=== PATIENT | female | born 1935 | race Caucasian/White ===

== ENCOUNTER 2019-11-29 14:34 | Inpatient (IN) | payer MEDICARE, SELFPAY ==
[2019-11-29] VITALS (14 sets, daily range): BP systolic 93–130; BP diastolic 58–89; PULSE 87–152; RESP 22–28; TEMP 37.3–37.8; O2SAT 90–99; BMI 21.3
--- NOTE | ~2019-11-29 | XR_ITS ---
XR chest 1V portable DATE: 12/02/2019 06:30 INDICATION: Pneumonia. Shortness of breath, fever TECHNIQUE: Portable upright AP chest on 12/02/2019 at 0612 hours COMPARISON: 11/29/2019 portable AP chest FINDINGS: There is a prominently enlarged globular appearing cardiac silhouette consistent with cardi omegaly/cardiomyopathy or less likely pericardial effusion. There are extensive left upper and particularly lower lung infiltrates and right lower lung infiltrat e, increased since 11/29/2019. There is prominence of the minor fissure suggesting subpleural edema. Bi lateral pleural effusions. Aortic calcification. Diffuse osteopenia. Osteoarthritic change at the glenohumeral joints, especially on the left. Bilater al chronic rotator cuff atrophy. Prominent dextroscoliosis of the thoracic spine. IMPRESSION: Globular prominent enlarged cardiac silhouette suggesting cardiomegaly/myopathy; pericard ial effusion is not excluded Congestive changes, bilateral infiltrates, left greater than right; diffusion diagnosis includes pulm onary edema, pneumonia, aspiration Reviewed, dictated and finalized at location A. IMPRESSION: Globular prominent enlarged cardiac silhouette suggesting cardiomeg татьяна/myopathy; pericardial effusion is not excluded Congestive changes, bilateral infiltrates, left greater than right; diffusion d iagnosis includes pulmonary edema, pneumonia, aspiration
--- NOTE | ~2019-11-29 | XR_ITS ---
EXAMINATION: XR chest 2V DATE: 12/05/2019 14:08 INDICATION: Congestive heart failure. Pneumonia. Neurologic atrial fibrillation. TECHNIQUE: frontal and lateral views of the chest were obtained. COMPARISON: Chest radiograph dated 12/02/2019 and 07/13/2017 FINDINGS: Patient is rotated towards the left. Opacities in the bilateral mid to lower lung zones, left greater than right with blunting at the costophrenic angles. No pneumothorax. Cardiomegaly. Thoracic kyphos is with multiple compression fractures couple of which in the lower thoracic spine are new since [facility] e 07/13/2017. IMPRESSION: 1. Moderate left and small right pleural effusions with associated atelectasis and/or pneumonia in th e bilateral mid to lower lung zones. 2. Cardiomegaly. Reviewed, dictated and finalized at location A. IMPRESSION: 1. Moderate left and small right pleural effusions with associated atelectasis and/or pneumonia in the bilateral mid to lower lung zones. 2. Cardiomegaly.
--- NOTE | ~2019-11-29 | US_ITS ---
EXAMINATION: US renal BI DATE: 12/05/2019 16:44 INDICATION: Acute kidney injury. TECHNIQUE: Multiple ultrasound grayscale images of the kidneys were obtained. COMPARISON: Ultrasound 02/07/2014 FINDINGS: The right kidney measures 9.4 x 3.9 x 4.2 cm. The left kidney measures 9.6 x 5.0 x 5.0 cm. The kidney s demonstrate normal parenchymal echogenicity. There is mild right hydronephrosis. The bladder is nor mal. There are bilateral pleural effusions. IMPRESSION: 1. Mild right hydronephrosis. 2. Bilateral pleural effusions. Reviewed, dictated and finalized at location B.
--- NOTE | ~2019-11-29 | XR_ITS ---
EXAMINATION: XR chest 1V portable DATE: 11/29/2019 15:18 INDICATION: Tachycardia, shortness of breath and fever TECHNIQUE: frontal view of the chest was obtained. COMPARISON: Chest radiograph dated 07/13/2017 FINDINGS: Patient is rotated towards the left. Hyperexpansion of lungs. Chronic pleural parenchymal scarring at the right apex. Mild reticular atelectasis/scarring at the right costophrenic angle. Airspace opacit y in the left lower lung zone with blunting of the costophrenic angle consistent with small left pleu ral effusion and associated basilar atelectasis and/or pneumonia. No pneumothorax. Prominent cardiome aníbal which is new since the prior study. Likely coronary artery stenting. Atherosclerotic aorta. Uppe r thoracic kyphosis and spondylosis. Moderate left glenohumeral osteoarthritis. IMPRESSION: 1. Atelectasis and/or pneumonia at the left lower lung zone with small left pleural effusion. 2. Cardiomegaly. Reviewed, dictated and finalized at location A. IMPRESSION: 1. Atelectasis and/or pneumonia at the left lower lung zone with small left ple ural effusion. 2. Cardiomegaly.
--- NOTE | 2019-11-29 14:45 | ECG_ITS ---
Measurements Intervals [place] Rate: 161 P: [place]: 0 QRS: -47 QRSD: 117 T: -58 QT: 255 QTc: 418 Interpretive Statements ATRIAL FIBRILLATION WITH RAPID VENTRICULAR RESPONSE VENTRICULAR PREMATURE COMPLEX LOW QRS VOLTAGE IN PRECORDIAL LEADS INCOMPLETE RIGHT BUNDLE BRANCH BLOCK LEFT ANTERIOR FASCICULAR BLOCK BORDERLINE ST-T WAVE ABNORMALITY- ANTEROLAT/INF LEADS BASELINE ARTIFACT- I, II, III, AVR, AVL, AVF ABNORMAL ECG Electronically Signed On 11-29-2019 15:06:41 CDT by Itz English D.O.
[2019-11-29 14:58] LABS: Basophils Percent Auto 0.3 % (0.2-1.2); Eosinophils Percent Auto 0.4 % (0-4.4); Hematocrit 39.4 % (37.0-47.0); Immature Granulocyte Absolute 0.05 K/mm3 (0.00-0.031); Immature Granulocyte Percent A 0.5 % (0-0.5); Lymphocytes Absolute Auto 0.76 K/mm3 (0.9-3.2); Lymphocytes Percent Auto 8.3 % (18.3-44.2); Mean Corpuscular Hemoglobin 31.6 pg (26-34); Mean Corpuscular Volume 95.9 fl (80-100); Mean Platelet Volume 8.9 fl (7.4-10.4); Monocytes Percent Auto 11.1 % (2.6-8.5); Neutrophils Absolute Auto 7.3 K/mm3 (1.3-6.7); Neutrophils Percent Auto 79.4 % (45.5-73.1); Platelet Count Result 405 k/mm3 (150-375); Red Blood Count 4.11 M/mm3 (4.2-5.4); Red Cell Distribution Width 13.2 % (11.5-14.5); White Blood Count 9.2 K/mm3 (4.5-10.0)
[2019-11-29 15:07] LABS: Anion Gap 12.1 mmol/L (7-16); Blood Urea Nitrogen 24 mg/dL (7-17); Calcium 9.6 mg/dL (8.4-10.2); Carbon Dioxide 31 mmol/L (22-30); Chloride 93 mmol/L (98-107); Estimated CRCL calculation 29 ml/min; Estimated Glomerular Filt Rate 53; Glucose 121 mg/dL (65-105); Potassium 4.1 mmol/L (3.4-5.0); Sodium 132 mmol/L (137-145)
[2019-11-29 15:19] LABS: Troponin I < 0.012 ng/mL (0.000-0.034)
--- NOTE | 2019-11-29 15:26 | ED.GENADULT ---
HPI - General Adult General Chief complaint: Shortness of Breath/Dyspnea Stated complaint: PROBLEMS BREATHING Time Seen by Provider: 11/29/19 14:53 Source: family History of Present Illness HPI narrative: Patient is 84 years old white female, lives alone, have frequent visits by her son and her neighbors. Been coughing and shortness of breath for the last few days. The son denies any exposure to anybody was COVID-19. The neighbors are okay and the son is okay. Patient is full code. Related Data Home Medications Medication Instructions Recorded Confirmed gabapentin 11/29/19 lisinopril 11/29/19 Allergies Allergy/AdvReac Type Severity Reaction Status Date / Time diclofenac Allergy Mild EYE Verified 06/30/19 09:41 DIFFICULT diflunisal Allergy Unknown unknown Verified 06/30/19 09:41 hydromorphone Allergy Unknown unknown Verified 06/30/19 09:41 TAPE Allergy Mild BLISTERS Uncoded 04/22/19 10:12 Review of Systems Review of Systems: Narrative: CONSTITUTIONAL: Denies fever, chills, or sweats. EYES: Denies visual changes, redness, or discharge. ENT: Denies rhinorrhea, congestion, sore throat, or otalgia. CARDIOVASCULAR: Denies chest pain, palpitations, or edema. RESPIRATORY: Denies cough or dyspnea. GASTROINTESTINAL: Denies abdominal pain, nausea, vomiting, or diarrhea. GENITOURINARY: Denies dysuria or hematuria. SKIN: Denies rash or itching. MUSCULOSKELETAL: Denies back pain, joint pain, or myalgia. NEUROLOGIC: Denies headache, numbness, or weakness. PSYCHIATRIC: Denies anxiety or depression.. [facility] Past Medical History Medical History Chronic back pain Dementia Hypertension Osteoporosis Surgical History Surgical History History of knee replacement (~2005) Family History Family History Grandparent Carcinoma of colon Family history of heart disease in male family member before age 55 Father Family history of emphysema Family history of lung disease Patient's father is Family history of chronic obstructive pulmonary disease Mother Family history of emphysema Family history of hypercholesterolemia Hypertension Patient's mother is Cerebrovascular accident Sibling Family history of lung cancer Family history of malignant neoplasm of breast in first degree relative Family history of heart disease in male family member before age 55 Patient's sister is Patient's brother is Cerebrovascular accident Family history of chronic obstructive pulmonary disease Other Family history of malignant neoplasm of male breast Social History Social History Smoking status: Never smoker Second hand tobacco smoke exposure: No Alcohol intake: never Exam Narrative: Exam Narrative: General appearance: Well-developed, well-nourished Skin: Normal color Head: Normocephalic, nontraumatic Eyes: Clear conjunctiva ENT: Oropharynx normal, ears normal, nose normal Neck: Supple, nontender Chest and respiratory: Airway patent, no respiratory distress, no accessory muscle use Heart: Tachycardia, irregular irregularity Abdomen: Soft, nontender, no organomegaly, quiet bowel sounds Vascular: Normal peripheral pulses, normal capillary refill. Musculoskeletal: Normal range of motion, nontender back Neurologic: Alert and oriented ?3, HAND II TUBE BENDER is normal as tested, no gross motor deficit Course Course Emergency Course: Stable Consultations Consultation #1: Dr. Nur Date: 11/29/19 Time: 16:06
[2019-11-29] MEDS: dilTIAZem HCl INJ 25 MG/5 ML VIAL 10 MG IV PUSH (15:27)
[2019-11-29 16:13] LABS: Base Excess ABG 5.1 mEq/l (+/-2.0); Fractional Inspired Oxygen 21 %; HCO3 ABG 29.8 mEq/l (22.0-26.0); Oxygen Content ABG 16.3 %vol (16.0-22.0); Oxygen Saturation ABG 90.2 % (95.0-100.0); Oxyhemoglobin 89.2 % THb (90.0-100.0); PCO2 ABG 44.1 mmHg (35.0-45.0); PO2 ABG 55.9 mmHg (80.0-100.0); PO2 FiO2 Ratio Arterial Blood 2.66 %; pH ABG 7.447 (7.350-7.450)
[2019-11-29 16:14] LABS: Device ROOM AIR; Modified Allen's Test Pass; Site Drawn RIGHT RADIAL
[2019-11-29 16:16] LABS: Lactic Acid Reflex 1.1 mmol/L (0.7-2.1)
[2019-11-29 16:27] LABS: Alanine Aminotransferase 26 U/L (4-35); Albumin Level 3.7 g/dL (3.5-5.1); Alkaline Phosphatase 88 U/L (38-126); Anion Gap 12.2 mmol/L (7-16); Aspartate Amino Transferase 34 U/L (14-36); Bilirubin,Total 0.9 mg/dL (0.2-1.3); Blood Urea Nitrogen 23 mg/dL (7-17); CRP 7.3 mg/dL (<1.0); Calcium 9.5 mg/dL (8.4-10.2); Carbon Dioxide 30 mmol/L (22-30); Chloride 94 mmol/L (98-107); Estimated CRCL calculation 29 ml/min; Estimated Glomerular Filt Rate 53; Glucose 115 mg/dL (65-105); Potassium 4.2 mmol/L (3.4-5.0); Sodium 132 mmol/L (137-145)
[2019-11-29 17:30] LABS: Add Urine Microscopic? YES; Appearance Urine Clear (Clear); Bilirubin Urine Negative (Negative); Blood Urine Negative (Negative); Color Urine Yellow (Yellow); Glucose Urine UA Negative (Negative); Ketones Urine Negative (Negative); Leukocyte Esterase Ur Negative LEU/UL (Negative); Mucus Urine Rare /lpf; Nitrate Urine Negative (Negative); Protein Urine 1+ mg/dL (Negative); Specific Grav Ur 1.023 (1.001-1.035); Squamous Epithelial Cell Urine Rare /hpf (Few); WBC Urine 0-3 /hpf
[2019-11-29 17:52] LABS: INR 1.2; Prothrombin Time 14.5 Seconds (11.1-14.7)
[2019-11-29 17:53] LABS: Partial Thromboplastin Time 32.1 SECONDS (22.3-36.8)
[2019-11-29 18:34] LABS: NT Pro B Type Natriuretic Pept 5610 PG/ML (5-100)
[2019-11-29 19:06] LABS: Troponin I 0.013 ng/mL (0.000-0.034)
--- NOTE | 2019-11-29 19:36 | PC.NURSE ---
This patient, Brandan Hoffman, was admitted to Intensive Care Unit-1. Patient/family oriented to hospital policies and general routines including ID bracelet, bed and alarms, visiting hours, pain management, procedures, bathroom and other care routines, personal items, smoking policy, room service/diet, and visiting hours. Valuables list has been completed. Information on how to activate the Rapid Response Team has been discussed. Patient/Family are encouraged to report perceived risks to care and to ask questions if they do not understand what they are told or what they should do.
--- NOTE | 2019-11-29 20:27 | PM.IMHP ---
H&P: HPI History of Present Illness Date/Time: 11/29/19 20:27 Chief complaint: New onset A.fib, pneumonia Narrative: Brandan Hoffman is a 84 year old female who lives home alone. the patient has been staying at home most the time. She said during this COVID outbreak she has only been out twice since the COVID outbreak. That was to go to the grocery store and [employer]. The patient stated that her son usually brings her her the grocery and he works in a restaurant. The son has been feeling well without any illness. The patient visits with her neighbors and stated that they are all healthy. The patient has been coughing and short of breath for the last 2 days. The patient states that she is a full code. She tells me that she has had an irregular heart rate in the past and that she has high blood pressure. Chest x-ray was read as atelectasis and/or pneumonia at the left lower lung zones with small pleural effusion. Cardiomegaly. Patient was found to be AFib with RVR. She started on a Cardizem drip. She is started on azithromycin and Rocephin. She was also given IV Tylenol. She is slightly hard of hearing. She is admitted to ICU is IMU overflow. COVID testing is pending and she is on isolation. no fever chills. I spent approximately 40 minutes of critical care time with the patient date of service 11/29/2019 Review of Systems Review of Systems: All systems reviewed & are unremarkable except as noted in HPI and below Constitutional: Constitutional: Reports as per HPI and Reports no additional constitutional complaints Eyes: Eyes: Reports as per HPI and Reports no additional eye complaints ENT: Reports system reviewed and no additional complaints, except as documented and Reports Normal hearing present Cardiovascular: Cardiovascular: Reports no additional cardiovascular complaints Respiratory: Respiratory: Reports no additional respiratory complaints and Reports no additional respiratory complaints Gastrointestinal: Gastrointestinal: Reports as per HPI and Reports no additional gastrointestinal complaints Musculoskeletal: Musculoskeletal: Reports no additional musculoskeletal complaints Integumentary/Breasts: Skin/Breast: Reports system reviewed and no additional complaints, except as docu and Reports as per HPI Neurologic: Reports system reviewed and no additional complaints, except as documented, Reports as per HPI and Reports Normal hearing present Psychiatric: Psychiatric: Reports no additional psychiatric complaints and Reports as per HPI Endocrine: Endocrine: Reports no additional endocrine complaints Hematologic/Lymphatic: Hematologic/Lymphatic: Reports no additional hematologic/lymphatic complaints Allergic/Immunologic: Allergic/Immunologic: Reports no additional allergic/immunologic complaints [facility] Past Medical History Medical History (Updated 11/29/19 @ 20:48 by Cathy Smith NP) Chronic back pain Dementia Hypertension Osteoporosis Surgical History Surgical History History of knee replacement (~2005) Family History Family History Grandparent Carcinoma of colon Family history of heart disease in male family member before age 55 Father Family history of emphysema Family history of lung disease Patient's father is Family history of chronic obstructive pulmonary disease Mother Family history of emphysema Family history of hypercholesterolemia Hypertension Patient's mother is Cerebrovascular accident Sibling Family history of lung cancer Family history of malignant neoplasm of breast in first degree relative Family history of heart disease in male family member before age 55 Patient's sister is Patient's brother is Cerebrovascular accident Family history of chronic obstructive pulmonary disease Other Family history of malignan
[2019-11-29 21:16] LABS: Troponin I 0.012 ng/mL (0.000-0.034)
[2019-11-30] VITALS (15 sets, daily range): BP systolic 93–113; BP diastolic 60–70; PULSE 12–107; RESP 18–32; TEMP 36.4–37.2; O2SAT 92–99
--- NOTE | 2019-11-30 | ECHO_ITS ---
Patient Info Name: Brandan Hoffman Age: 84 years : 1935 Gender: Female Ht: 62 in Wt: 116 lbs BSA: 1.52 m2 HR: 85 bpm BP: 95 / 67 mmHg Heart Rhythm: Atrial Fibrillation Technical Quality: Good Exam Date: 11/30/2019 2:44 PM Exam Location: [facility] Pul[facility] Patient Status: Inpatient Admit Date: 11/29/2019 Staff Ordering Physician: Cathy Smith NP Obstetrics Technician: Rikki Pryor RDCS, RT Attending Provider: Rajan Martinez MD Referring Physician: Sarah RAMOS; Exam Type: CA echo doppler color flow Study Info Indications I50.9 - Heart failure, unspecified Complete two-dimensional, color flow and Doppler transthoracic echocardiogram is performed. Summary 1. Left ventricular chamber size and systolic function are normal with no regional wall motion abnormalities with an estimated ejection fraction of 55-60%. There is mild left ventricular hypertrophy present as well as grade 2 diastolic dysfunction. 2. Right ventricular chamber dimension is mildly enlarged, with mild hypokinesis present. 3. Left atrial chamber dimension is severely enlarged. 4. Right atrial chamber dimension is severely enlarged. 5. There is moderately severe mitral valve regurgitation. PISA was 0.6 cm. There is severe annular calcification with trivial mitral stenosis with a mean gradient of 3 mmHg. 6. There is moderate tricuspid valve regurgitation. 7. Moderate pulmonary hypertension, estimated pulmonary arterial systolic pressure is 49 mmHg. 8. There is mild aortic atherosclerosis. 9. Dilated inferior vena cava with no collapse upon inspiration consistent with significantly elevated right atrial pressure, 20 mmHg. 10. There is trivial pericardial effusion. 11. The rhythm appears to be atrial fibrillation. Left Ventricle Left ventricular chamber dimension is normal. Left ventricular systolic function is normal, estimated at 55-60%. There is mildly increased left ventricular wall thickness. Left ventricular septal wall motion is normal. The left ventricular diastolic function is grade II diastolic dysfunction. Left ventricular chamber size and systolic function are normal with no regional wall motion abnormalities with an estimated ejection fraction of 55-60%. There is mild left ventricular hypertrophy present as well as grade 2 diastolic dysfunction. Right Ventricle Right ventricular chamber dimension is mildly enlarged, with mild hypokinesis present. Right ventricular systolic function is reduced. Left Atria Left atrial chamber dimension is severely enlarged. Right Atria Right atrial chamber dimension is severely enlarged. Aortic Valve The aortic valve is trileaflet. There is mild aortic valve sclerosis. There is no aortic valve stenosis. There is no aortic valve regurgitation. Pulmonic Valve The pulmonic valve is normal. There is no pulmonic valve stenosis. There is trace pulmonic regurgitation. Mitral Valve The mitral valve has thickened leaflets. There is mild mitral valve stenosis. There is moderately severe mitral valve regurgitation. PISA was 0.6 cm. There is severe annular calcification with trivial mitral stenosis with a mean gradient of 3 mmHg. The mitral valve annulus is severely calcified. Tricuspid Valve The tricuspid valve leaflets are normal. There is no significant tricuspid valve stenosis. There is moderate tricuspid valve regurgitation. Moderate pulmonary hypertension, estimated pulmonary arterial systolic pressure is 49 mmHg. Pericardium/Pleur
[2019-11-30 00:25] LABS: SARS-CoV-2 RNA PCR Negative
[2019-11-30 04:52] LABS: Basophils Percent Auto 0.4 % (0.2-1.2); Eosinophils Absolute Auto 0.1 K/mm3 (0-0.3); Eosinophils Percent Auto 0.7 % (0-4.4); Hemoglobin 10.9 g/dL (12.0-15.0); Immature Granulocyte Absolute 0.04 K/mm3 (0.00-0.031); Immature Granulocyte Percent A 0.4 % (0-0.5); Lymphocytes Absolute Auto 0.97 K/mm3 (0.9-3.2); Lymphocytes Percent Auto 10.7 % (18.3-44.2); Mean Corpuscular Hemoglobin 32.1 pg (26-34); Mean Corpuscular Volume 97.1 fl (80-100); Mean Platelet Volume 9.5 fl (7.4-10.4); Monocytes Absolute Auto 1.1 K/mm3 (0.1-0.6); Monocytes Percent Auto 11.9 % (2.6-8.5); Neutrophils Absolute Auto 6.9 K/mm3 (1.3-6.7); Neutrophils Percent Auto 75.9 % (45.5-73.1); Platelet Count Result 319 k/mm3 (150-375); Red Cell Distribution Width 13.2 % (11.5-14.5); White Blood Count 9.1 K/mm3 (4.5-10.0)
[2019-11-30 05:09] LABS: Lactic Acid 1.2 mmol/L (0.7-2.1)
[2019-11-30 05:13] LABS: Magnesium 1.7 mg/dL (1.6-2.3)
[2019-11-30] MEDS: LEVALBUTEROL HFA (*SP) 15 GM INHALER 2 PUFF INHALATION ×3 (05:15→18:39)
[2019-11-30 05:20] LABS: CRP 7.2 mg/dL (<1.0)
[2019-11-30] MEDS: ENOXAPARIN 60 MG/0.6 ML SYRINGE 50 MG SUB-Q (09:23)
[2019-11-30] MEDS: SODIUM CHLORIDE 0.9% IV 500 ML IV CONT (09:23)
--- NOTE | 2019-11-30 10:55 | PM.CNCAR ---
Assessment and Plan Additional Plan 84-year-old white female with atrial fibrillation with rapid ventricular response. Patient is sure that she has a history of atrial fibrillation so this is not an entirely new diagnosis. It is unclear to us at [place] whether she has persistent, permanent atrial fib or paroxysmal atrial fib. She is rate controlled with diltiazem she normally takes oral diltiazem as an outpatient. She does not report any hemorrhagic problems or any obvious strong contraindications to being anticoagulated. I would therefore recommend: Transition back to oral diltiazem systemically anticoagulate with Xarelto await echocardiographic finding Pravin Nur MD [facility] History of Present Illness History of Present Illness Consult date/time: Date of service:11/30/19 10:55 Consult reason: atrial fibrillation Reason For Visit: New onset A.fib, pneumonia Narrative: This is an 84-year-old lady Who is being seen at the request of the hospitalist this morning to assist with the management of atrial fibrillation. the patient was in her home and brought to the hospital she says by her son was concerned that she was feeling ill for several days with a cough that she says was nonproductive and not associated with fever. When she was seen in the emergency room it was determined that she should be ruled out for nj virus. It was also noticed that she was in atrial fibrillation with rapid ventricular response. She was placed on IV diltiazem which has provided fairly good heart rate control. She normally takes oral diltiazem at home. She does not take an anticoagulant at home. The patient is fairly comfortable now is in the ICU room 1. And is comfortable and otherwise cooperative. She indicates that she has a history of atrial fibrillation for a number of years but can't really provide much details in terms of the history of this and management of it. There are some notes on the chart from an mortgage loan reviewer, Dr. Tiwari in [place] which speak to a history of idiopathic ventricular tachycardia which was partially ablated in the past but atrial fib is interestingly not mentioned in those notes. She nonetheless indicates that she has a history of this and is not aware of any sense of palpitations /tachycardia upon coming to the hospital last evening. Her nj virus test/ swab has come back negative. An echocardiogram I believe has been ordered but has yet to be done this morning. She states that she lives alone in her own home with family nearby she also has hypertension. Review of Systems Constitutional: Constitutional: Reports fatigue Eyes: Eyes: Reports no additional eye complaints ENT: Reports system reviewed and no additional complaints, except as documented Cardiovascular: Cardiovascular: Reports as per HPI and Reports no additional cardiovascular complaints Respiratory: Respiratory: Reports as per HPI and Reports cough Gastrointestinal: Gastrointestinal: Reports no additional gastrointestinal complaints Musculoskeletal: Musculoskeletal: Reports no additional musculoskeletal complaints Integumentary/Breasts: Skin/Breast: Reports system reviewed and no additional complaints, except as docu Neurologic: Reports system reviewed and no additional complaints, except as documented Psychiatric: Psychiatric: Reports no additional psychiatric complaints Endocrine: Endocrine: Reports no additional endocrine complaints Hematologic/Lymphatic: Hematologic/Lymphatic: Reports no additional hematologic/lymphatic complaints Allergic/Immunologic: Allergic/Immunologic: Reports no additional allergic/immunologic complaints [facility] Past Medical History Medical History (Updated 11/29/19 @ 20:48 by Cathy Smith NP) Chronic back pain Dementia Hypertension Osteoporosis Surgical History Surgical History History of knee replacement (~2005) Family Hi
[2019-11-30] MEDS: APIXABAN 5 MG TABLET PO (20:06)
--- NOTE | 2019-11-30 22:01 | PC.NURSE ---
This patient, Brandan Hoffman, was transferred to [[id number] ] on 11/30/19 at 2201. Personal belongings sent with patient. Belongings list checked and signed with receiving [ RN]. Report given to [ Jessica Reyes ]. Appropriate documentation sent with patient.
[2019-12-01] VITALS (20 sets, daily range): BP systolic 92–121; BP diastolic 62–73; PULSE 86–125; RESP 18–24; TEMP 36.2–37; O2SAT 93–97
[2019-12-01] MEDS: APIXABAN 5 MG TABLET PO (07:57)
[2019-12-01 09:42] LABS: Basophils Percent Auto 0.2 % (0.2-1.2); Eosinophils Percent Auto 0.1 % (0-4.4); Hemoglobin 11.8 g/dL (12.0-15.0); Immature Granulocyte Absolute 0.04 K/mm3 (0.00-0.031); Immature Granulocyte Percent A 0.5 % (0-0.5); Lymphocytes Absolute Auto 0.67 K/mm3 (0.9-3.2); Lymphocytes Percent Auto 7.8 % (18.3-44.2); Mean Corpuscular HGB Conc 32.8 g/dl (32-36); Mean Corpuscular Hemoglobin 31.6 pg (26-34); Mean Corpuscular Volume 96.5 fl (80-100); Mean Platelet Volume 9.2 fl (7.4-10.4); Monocytes Percent Auto 11.1 % (2.6-8.5); Neutrophils Absolute Auto 6.9 K/mm3 (1.3-6.7); Neutrophils Percent Auto 80.3 % (45.5-73.1); Platelet Count Result 362 k/mm3 (150-375); Red Blood Count 3.73 M/mm3 (4.2-5.4); Red Cell Distribution Width 13.2 % (11.5-14.5); White Blood Count 8.6 K/mm3 (4.5-10.0)
[2019-12-01 10:02] LABS: Albumin Level 3.2 g/dL (3.5-5.1); Anion Gap 10.3 mmol/L (7-16); Blood Urea Nitrogen 21 mg/dL (7-17); Calcium 9.1 mg/dL (8.4-10.2); Carbon Dioxide 31 mmol/L (22-30); Chloride 93 mmol/L (98-107); Estimated CRCL calculation 36 ml/min; Estimated Glomerular Filt Rate > 60; Glucose 144 mg/dL (65-105); Magnesium 1.7 mg/dL (1.6-2.3); Phosphorus 3.4 mg/dL (2.5-4.5); Potassium 4.3 mmol/L (3.4-5.0); Sodium 130 mmol/L (137-145)
[2019-12-01] MEDS: LEVALBUTEROL HFA (*SP) 15 GM INHALER 2 PUFF INHALATION ×2 (11:05→19:46)
--- NOTE | 2019-12-01 16:28 | PM.PNCARD ---
Progress Note: A&P Assessment and Plan (1) Atrial fibrillation: Code(s): I48.91 - Unspecified atrial fibrillation Status: Acute Assessment and Plan: Possibly new onset, though the patient thinks that she has had AFib in the past. Heart rate not well-controlled. Aiming for rate control and anticoagulation strategy; huge left atrium and significant MR so cardioversion not likely to provide long-lasting benefit. Xarelto/Eliquis too costly. Discussed use of warfarin. Despite the HAS-Bled score and increased risk of bleeding, anticoagulation is still generally recommended and reasonable. Discussed anticoagulation with the patient, specifically with warfarin, risk of bleeding, need for follow-up etc. Patient thinks that she can follow-up with INRs and would like to get that started. Will also add a low-dose beta-marky for heart rate control, metop tartrate 25 mg BID. (2) Mitral regurgitation: Code(s): I34.0 - Nonrheumatic mitral (valve) insufficiency Status: Acute Assessment and Plan: Moderately severe mitral regurgitation, and mild TR. (3) Tricuspid regurgitation: Code(s): I07.1 - Rheumatic tricuspid insufficiency Status: Acute Assessment and Plan: Moderate TR. (4) Acute diastolic CHF (congestive heart failure): Code(s): I50.31 - Acute diastolic (congestive) heart failure Status: Acute Assessment and Plan: SOB, prominent JVD and elevated Pro-BNP, small pleural effusion(s). May have mild diastolic CHF also. Will give 1 dose of Lasix 20 mg IV push. (5) Community acquired pneumonia: Code(s): J18.9 - Pneumonia, unspecified organism Status: Acute Assessment and Plan: SOB and low-grade temp on admission, left lower lobe atelectasis / pneumonia. On antibiotics. Subjective Date/time seen: 84 year-old lady admitted with AFib RVR. Diltiazem resumed anticoagulation recommended. Questionable prior history of PAF, known to have V-tach ablation by Dr. Tiwari in the past. Xarelto recommended. 12/01/19 16:28 Date of service: 12/01/2019 Still feeling short of breath. No cough. No history of falls, no bleeding diathesis. Xarelto will be very costly and she cannot afford that. Heart rate at rest is 95-105, with activity 115-125 ppm. On O2 at 2 L. COVID negative Echo yesterday showed EF 55-60%, moderately severe mitral regurgitation and moderate tricuspid regurgitation, severe biatrial enlargement. Review of Systems Constitutional: Constitutional: Reports lethargy and Reports weakness Eyes: Eyes: Reports no additional eye complaints ENT: Denies epistaxis Cardiovascular: Cardiovascular: Denies chest pain, Denies pedal edema, Denies leg edema, Denies lightheadedness and Denies palpitations Respiratory: Respiratory: Denies chest congestion, Denies cough, Denies hemoptysis, Reports dyspnea and Reports dyspnea on exertion Gastrointestinal: Gastrointestinal: Denies abdominal pain and Denies hematochezia Genitourinary: Genitourinary: Denies hematuria Musculoskeletal: Musculoskeletal: Denies back pain Integumentary/Breasts: Skin/Breast: Denies rash Neurologic: Denies confusion Psychiatric: Psychiatric: Denies confusion Exam Const: General: uncomfortable Other: Pleasant thin older lady, mildly tachypneic But in no distress. HENMT: General nose exam: no epistaxis Mouth: Yes moist mucous membranes Eyes: EOM: EOMs intact bilaterally Neck: Neck: supple and No no JVD ( JVD present) Resp: Effort & Inspection: abnormal respiratory effort ( mild tachypnea) Auscultation: not clear to auscultation bilaterally Other: decreased breath sounds particularly in bases, few scattered rales right lower lobe. Cardio: Rate: tachycardic Rhythm: abnormal rhyth
--- NOTE | 2019-12-01 16:43 | PM.IMPN ---
Progress Note: A&P Assessment and Plan (1) Community acquired pneumonia: Code(s): J18.9 - Pneumonia, unspecified organism Status: Acute Assessment and Plan: CXR on admission showing LLL airspace disease. She presented SOB but was tachycardic at the time to 150. Tmax 100.1 o/w afebrile. WBC normal. She was started on azithromycin and Rocephin for PNA but consider mild pulm edema from the tachycardia (BNP 5600). Blood cultures no growth. Lasix given once, Still with O2 requirement. Repeat CXR in the morning. (2) Atrial fibrillation: Code(s): I48.91 - Unspecified atrial fibrillation Status: Acute Assessment and Plan: Patient has a history of having irregular heart rate in the past but not documented AFib. She is on Cardizem at home. She has been transitioned to oral Diltiazem. Echo showing EF 55-60% with Grade II diastolic dysfunction. She has biatrial chambers that are severely enlarges with RV enlargement and mild HK. Also with moderately severe MR, moderate TR and moderate pulm HTN. Significantly elevated RAP. [id number] 4 and HAS-BLED 3. Cardiology discussed options of anticoagulation and Coumadin chosen. Coumadin started tongiht. (3) Osteoporosis: Qualifiers: Osteoporosis type: age-related Presence of current pathological fracture: unspecified Qualified Code(s): M81.0 - Age-related osteoporosis without current pathological fracture Code(s): M81.0 - Age-related osteoporosis without current pathological fracture Status: Acute Assessment and Plan: Stable. Continue with Fosamax (4) Chronic back pain: Qualifiers: Back pain laterality: right Back pain location: low back pain Sciatica presence: without sciatica Qualified Code(s): M54.5 - Low back pain; G89.29 - Other chronic pain Code(s): M54.9 - Dorsalgia, unspecified; G89.29 - Other chronic pain Status: Acute Assessment and Plan: Patient not currently taking any pain medication for her chronic pain. (5) Hypertension: Code(s): I10 - Essential (primary) hypertension Status: Chronic Assessment and Plan: BP reviewed on 12/01/19. BP well controlled. Contineu current medications. (6) Suspected COVID-19 virus infection: Code(s): Z20.828 - Contact with and (suspected) exposure to other viral communicable diseases Status: Acute Assessment and Plan: COVID negative. Isolation stopped. Subjective Date/time seen: 12/01/19 16:43 Interval history: 84yo female here for CAP and Afib. She feels SOB but better overall. No CP. No n/v. Eating okay. Slight nonproductive cough. Exam Narrative: Exam Narrative: AF 121/70 108 Gen - NARD Chest - few basilar rhonchi o/w distant BS CV - irregularly irregular. Tele showing intermittent runs of VTach o/w AFib with occas RVR Abd - soft, NT/ND, +BS Ext - no pedal edema Psych - nml mood and affect Objective Data Vital Signs Vital Signs: Vital Signs - 24 hr 11/30/19 18:00 11/30/19 20:00 11/30/19 21:11 Temperature 97.9 F Pulse Rate 107 H 93 12 L Respiratory Rate 24 H 20 28 H Blood Pressure 100/62 Pulse Oximetry 94 11/30/19 22:00 11/30/19 23:45 12/01/19 00:00 Temperature 97.6 F Pulse Rate 102 H 107 H 89 Respiratory Rate 18 Blood Pressure 108/60 Pulse Oximetry 96 12/01/19 01:55 12/01/19 04:00 12/01/19 05:43 Temperature 98.5 F Pulse Rate 104 H 104 H 104 H Respiratory Rate 18 Blood Pressure 110/62 Pulse Oximetry 95 12/01/19 05:45 12/01/19 07:55 12/01/19 08:00 Temperature 97.8 F Pulse Rate 100 106 H 99 Respiratory Rate 22 H Blood Pressure 103/62 Pulse Oximetry 97 12/01/19 10:00 12/01/19 11:10 12/01/19 12:00 Temperature 98.6 F Pulse Rate 91 111 H 102 H Respiratory Rate 18 18 Blood Pressure 121/70 Pulse Oximetry 94 97 12/01/19 14:00 Temperature Pulse Rate 108 H Respiratory Rate
[2019-12-01 18:05] LABS: INR 1.5; Prothrombin Time 17.3 Seconds (11.1-14.7)
[2019-12-01] MEDS: FUROSEMIDE INJ 40 MG/4 ML VIAL 20 MG IV PUSH (18:13)
[2019-12-01] MEDS: METOPROLOL TARTRATE 25 MG TABLET PO ×2 (18:13→22:01)
[2019-12-01] MEDS: WARFARIN (*PBKC) 5 MG TABLET PO (18:46)
[2019-12-02] VITALS (20 sets, daily range): BP systolic 88–98; BP diastolic 54–67; PULSE 78–117; RESP 18–24; TEMP 35.7–36.7; O2SAT 94–98
[2019-12-02] MEDS: LEVALBUTEROL HFA (*SP) 15 GM INHALER 2 PUFF INHALATION ×3 (02:04→19:57)
[2019-12-02 05:01] LABS: INR 1.4; Prothrombin Time 16.3 Seconds (11.1-14.7)
[2019-12-02 05:07] LABS: Anion Gap 9.7 mmol/L (7-16); Blood Urea Nitrogen 26 mg/dL (7-17); Calcium 8.8 mg/dL (8.4-10.2); Carbon Dioxide 31 mmol/L (22-30); Chloride 93 mmol/L (98-107); Estimated CRCL calculation 36 ml/min; Estimated Glomerular Filt Rate > 60; Glucose 110 mg/dL (65-105); Potassium 4.7 mmol/L (3.4-5.0); Sodium 129 mmol/L (137-145)
[2019-12-02] MEDS: ALENDRONATE SODIUM 70 MG TABLET PO (06:02)
--- NOTE | 2019-12-02 09:39 | PM.PNCARD ---
Progress Note: A&P Assessment and Plan (1) Atrial fibrillation: Code(s): I48.91 - Unspecified atrial fibrillation Status: Acute Assessment and Plan: Possibly new onset, though she thinks that she has had AFib in the past. Aiming for rate control and anticoagulation strategy; huge left atrium and significant MR so cardioversion not likely to provide long-lasting benefit. Metoprolol added yesterday however blood pressure is soft this morning (also received furosemide 20 mg IV).. Will hold Metoprolol and give her her usual home dose diltiazem 240 mg and monitor BP Xarelto/Eliquis too costly. Despite the HAS-Bled score and increased risk of bleeding, anticoagulation is still generally recommended and reasonable. Warfarin started 12/01/2019. Daily INR while she is in the hospital. (2) Mitral regurgitation: Code(s): I34.0 - Nonrheumatic mitral (valve) insufficiency Status: Acute Assessment and Plan: Moderately severe mitral regurgitation, and mild TR. (3) Tricuspid regurgitation: Code(s): I07.1 - Rheumatic tricuspid insufficiency Status: Acute Assessment and Plan: Moderate TR. (4) Acute diastolic CHF (congestive heart failure): Code(s): I50.31 - Acute diastolic (congestive) heart failure Status: Acute Assessment and Plan: May have mild diastolic CHF also. Lasix 20 mg IV 12/01/2019 (5) Community acquired pneumonia: Code(s): J18.9 - Pneumonia, unspecified organism Status: Acute Assessment and Plan: SOB and low-grade temp on admission, left lower lobe atelectasis / pneumonia. On antibiotics. Additional Plan Plan discussed Dr. Donis r [id number] 12/02/2019 Subjective Date/time seen: 12/02/19 09:39 Interval history: Follow up for:Atrial fibrillation with rapid ventricular response , history of ventricular tachycardia ablation by Dr. Tiwari, pneumonia Date of service: 12/02/2019 Subjective: Unhappy that she has not had breakfast yet. Breakfast is on the tray in front of her. Denied chest pain, shortness of breath, cough, lightheadedness or palpitations. Review of Systems Constitutional: Constitutional: Reports weakness Eyes: Eyes: Denies blurry vision ENT: Reports Normal hearing present and Denies epistaxis Cardiovascular: Cardiovascular: Denies chest pain, Denies pedal edema, Denies leg edema, Denies lightheadedness, Denies palpitations, Reports dyspnea and Reports dyspnea on exertion Respiratory: Respiratory: Denies chest congestion, Denies cough, Denies hemoptysis and Reports dyspnea on exertion Gastrointestinal: Gastrointestinal: Denies abdominal pain, Denies hematochezia, Denies nausea and Denies vomiting Genitourinary: Genitourinary: Denies hematuria Musculoskeletal: Musculoskeletal: Denies back pain Integumentary/Breasts: Skin/Breast: Denies erythema and Denies rash Neurologic: Reports Normal hearing present, Reports confusion, Denies dizziness and Reports weakness Comments: Needs frequent reminding the use call light and not to call the acid recovery operator Psychiatric: Psychiatric: Reports confusion Endocrine: Endocrine: Denies palpitations Hematologic/Lymphatic: Hematologic/Lymphatic: Denies easy bruising Allergic/Immunologic: Allergic/Immunologic: Reports no additional allergic/immunologic complaints Exam Const: General: comfortable, no acute distress and uncomfortable; No confusion Orientation/consciousness: No confusion Other: Pleasant thin older lady, mildly tachypneic. Agitated. No distress. HENMT: General nose exam: no epistaxis Mouth: Yes moist mucous membranes Eyes: Sclera: sclerae normal Pupils: Equal, round and reactive pupils present EOM: EOMs intact bilaterally Neck: Neck: supple Resp:
--- NOTE | 2019-12-02 11:00 | PM.IMPN ---
Progress Note: A&P Assessment and Plan (1) Community acquired pneumonia: Code(s): J18.9 - Pneumonia, unspecified organism Status: Acute Assessment and Plan: CXR on admission showing LLL airspace disease. She presented SOB but was tachycardic at the time to 150. Tmax 100.1 o/w afebrile. WBC normal. COVID negative. She was started on azithromycin and Rocephin for PNA but consider mild pulm edema from the tachycardia (BNP 5600). Blood cultures no growth. Lasix given once on 11/30. Still with O2 requirement. Repeat CXR this mroning showing bilateral congestive changes. Check swallow study. Increase activity. No Lasix due to soft BP. Wean O2 as tolerated (2) Atrial fibrillation: Code(s): I48.91 - Unspecified atrial fibrillation Status: Acute Assessment and Plan: Patient has a history of having irregular heart rate in the past but not documented AFib. She is on Cardizem at home. She has been transitioned to oral Diltiazem. Echo showing EF 55-60% with Grade II diastolic dysfunction. She has biatrial chambers that are severely enlarged with RV enlargement and mild HK. Also with moderately severe MR, moderate TR and moderate pulm HTN. Significantly elevated RAP. [id number] 4 and HAS-BLED 3. Cardiology discussed options of anticoagulation and Coumadin chosen. Coumadin started and INR 1.4. (3) Osteoporosis: Qualifiers: Osteoporosis type: age-related Presence of current pathological fracture: unspecified Qualified Code(s): M81.0 - Age-related osteoporosis without current pathological fracture Code(s): M81.0 - Age-related osteoporosis without current pathological fracture Status: Acute Assessment and Plan: Stable. Continue with Fosamax (4) Chronic back pain: Qualifiers: Back pain laterality: right Back pain location: low back pain Sciatica presence: without sciatica Qualified Code(s): M54.5 - Low back pain; G89.29 - Other chronic pain Code(s): M54.9 - Dorsalgia, unspecified; G89.29 - Other chronic pain Status: Acute Assessment and Plan: Patient not currently taking any pain medication for her chronic pain. (5) Hypertension: Code(s): I10 - Essential (primary) hypertension Status: Chronic Assessment and Plan: BP reviewed on 12/02/19. BP soft at times. Lopressor held this mroning. Continue to follow (6) Suspected COVID-19 virus infection: Code(s): Z20.828 - Contact with and (suspected) exposure to other viral communicable diseases Status: Acute Assessment and Plan: COVID negative. Isolation stopped. (7) Mitral regurgitation: Code(s): I34.0 - Nonrheumatic mitral (valve) insufficiency Status: Acute Assessment and Plan: Echo showing moderately severe MR. Per Cardiology. Subjective Date/time seen: 12/02/19 11:00 Interval history: 84yo female here for CAP and Afib. Slept okay last night. Still feels SOB. Denies CP. Eating okay. No n./v. Exam Narrative: Exam Narrative: AF 105 Gen - NARD Chest - right base inspiratory crackles o/w distatn BS, nml RR CV - irregularly irregular. Tele showing AFib/RVR Abd - soft, NT/ND, +BS Ext - no pedal edema Psych - nml mood and affect; AOx3 (not himanshu name) Objective Data Vital Signs Vital Signs: Vital Signs - 24 hr 12/01/19 11:10 12/01/19 12:00 12/01/19 14:00 Temperature 98.6 F Pulse Rate 111 H 102 H 108 H Respiratory Rate 18 18 Blood Pressure 121/70 Pulse Oximetry 94 97 12/01/19 16:00 12/01/19 18:00 12/01/19 18:13 Temperature 98 F Pulse Rate 125 H 111 H 123 H Respiratory Rate 22 H Blood Pressure 106/73 Pulse Oximetry 96 12/01/19 19:52 12/01/19 20:00 12/01/19 20:16 Temperature 97.6 F Pulse Rate 100 99 106 H Respiratory Rate 24 H 20 Blood Pressure 103/66 Pulse Oximetry 93 97 12/01/19 22:00 12/01/19 22:01 12/01/19 23:54 T
--- NOTE | 2019-12-02 12:10 | PCSTNOTE ---
BSS attempted; patient refused. Discussed with and Nurse. Referred recommendation to Dr. Martinez.
[2019-12-02] MEDS: METOPROLOL TARTRATE 25 MG TABLET PO ×2 (12:38→20:34)
[2019-12-02] MEDS: WARFARIN (*PBKC) 5 MG TABLET PO (17:22)
[2019-12-03] VITALS (20 sets, daily range): BP systolic 90–109; BP diastolic 60–77; PULSE 75–115; RESP 16–28; TEMP 36.1–36.9; O2SAT 92–97
[2019-12-03] MEDS: LEVALBUTEROL HFA (*SP) 15 GM INHALER 2 PUFF INHALATION ×4 (02:55→19:17)
[2019-12-03 04:29] LABS: Basophils Percent Auto 0.2 % (0.2-1.2); Eosinophils Percent Auto 0.1 % (0-4.4); Hemoglobin 11.3 g/dL (12.0-15.0); Immature Granulocyte Absolute 0.05 K/mm3 (0.00-0.031); Immature Granulocyte Percent A 0.5 % (0-0.5); Lymphocytes Absolute Auto 0.63 K/mm3 (0.9-3.2); Lymphocytes Percent Auto 6.7 % (18.3-44.2); Mean Corpuscular HGB Conc 32.3 g/dl (32-36); Mean Corpuscular Volume 96.2 fl (80-100); Mean Platelet Volume 8.9 fl (7.4-10.4); Monocytes Percent Auto 11.1 % (2.6-8.5); Neutrophils Absolute Auto 7.6 K/mm3 (1.3-6.7); Neutrophils Percent Auto 81.4 % (45.5-73.1); Platelet Count Result 357 k/mm3 (150-375); Red Blood Count 3.64 M/mm3 (4.2-5.4); Red Cell Distribution Width 12.9 % (11.5-14.5); White Blood Count 9.4 K/mm3 (4.5-10.0)
[2019-12-03 04:38] LABS: INR 1.5; Prothrombin Time 17.8 Seconds (11.1-14.7)
[2019-12-03 04:45] LABS: Albumin Level 2.9 g/dL (3.5-5.1); Anion Gap 4 mmol/L (8-16); Blood Urea Nitrogen 31 mg/dL (7-17); Carbon Dioxide 34 mmol/L (22-30); Chloride 89 mmol/L (98-107); Estimated CRCL calculation 29 ml/min; Estimated Glomerular Filt Rate 53; Glucose 117 mg/dL (65-105); Magnesium 1.9 mg/dL (1.6-2.3); Phosphorus 3.8 mg/dL (2.5-4.5); Potassium 5.2 mmol/L (3.4-5.0); Sodium 127 mmol/L (137-145)
[2019-12-03] MEDS: METOPROLOL TARTRATE 25 MG TABLET PO ×2 (08:12→20:50)
--- NOTE | 2019-12-03 10:35 | PM.PNCARD ---
Progress Note: A&P Assessment and Plan (1) Atrial fibrillation: Code(s): I48.91 - Unspecified atrial fibrillation Status: Acute Assessment and Plan: Possibly new onset, though she thinks that she has had AFib in the past. Aiming for rate control and anticoagulation strategy; huge left atrium and significant MR so cardioversion not likely to provide long-lasting benefit. Metoprolol held 12/02/2019 because of low blood pressure after IV Lasix. Tolerating metoprolol 25 mg b.i.d. with diltiazem 240 mg daily. Runs a low blood pressure in the 90s. May need amiodarone for HR control if her BP can't tolerate meds. Despite the HAS-Bled score and increased risk of bleeding, anticoagulation is still generally recommended and reasonable. Xarelto/Eliquis too costly. Warfarin started 12/01/2019. Daily INR while she is in the hospital. Today's INR was only 1.5 (2) Mitral regurgitation: Code(s): I34.0 - Nonrheumatic mitral (valve) insufficiency Status: Acute Assessment and Plan: Moderately severe mitral regurgitation, and mild TR. Long-term prognosis is not good because of low blood pressure, frailty, mitral regurgitation etc. (3) Tricuspid regurgitation: Code(s): I07.1 - Rheumatic tricuspid insufficiency Status: Acute Assessment and Plan: Moderate TR. (4) Acute diastolic CHF (congestive heart failure): Code(s): I50.31 - Acute diastolic (congestive) heart failure Status: Acute Assessment and Plan: Has mild diastolic CHF also. Lasix 20 mg IV 12/01/2019 Will add Lasix 20 mg p.o. daily starting 12/03/2019 (5) Community acquired pneumonia: Code(s): J18.9 - Pneumonia, unspecified organism Status: Acute Assessment and Plan: SOB and low-grade temp on admission, left lower lobe atelectasis / pneumonia. On antibiotics. Subjective Date/time seen: 12/03/19 10:35 Interval history: Follow up for:Atrial fibrillation with rapid ventricular response , history of ventricular tachycardia ablation by Dr. Tiwari, pneumonia 12/02/2019 Visit: Unhappy that she has not had breakfast yet. Breakfast is on the tray in front of her. Denied chest pain, shortness of breath, cough, lightheadedness or palpitations. Lasix held because of soft blood pressure; runs in the 90s. Date of service: 12/03/2019 Patient reports that she has been up to the bathroom and ambulated in the room with a walker. Feels weak and tired but not much shortness of breath. No dizziness. Telemetry shows heart rate runs in the 80s at rest, occasionally will jump to the 130s with activity. still on O2 at 2 L. Review of Systems Constitutional: Constitutional: Reports fatigue and Reports lethargy ENT: Denies epistaxis Cardiovascular: Cardiovascular: Denies chest pain, Denies pedal edema, Denies leg edema, Denies lightheadedness and Denies palpitations Respiratory: Respiratory: Denies chest congestion, Denies dyspnea and Denies dyspnea on exertion Gastrointestinal: Gastrointestinal: Denies abdominal pain Genitourinary: Genitourinary: Denies hematuria Musculoskeletal: Musculoskeletal: Denies back pain Integumentary/Breasts: Skin/Breast: Reports system reviewed and no additional complaints, except as docu Neurologic: Reports system reviewed and no additional complaints, except as documented Psychiatric: Psychiatric: Reports no additional psychiatric complaints Exam Const: General: comfortable and no acute distress HENMT: General nose exam: no epistaxis Mouth: Yes moist mucous membranes Eyes: EOM: EOMs intact bilaterally Neck: Neck: supple and No no JVD ( prominent JVD) Resp: Auscultation: rales ( Scattered rales, diminished breath sounds) Cardio: Rhythm: abnormal
[2019-12-03] MEDS: FUROSEMIDE 20 MG TABLET PO (12:07)
--- NOTE | 2019-12-03 13:19 | PM.IMPN ---
Progress Note: A&P Assessment and Plan (1) Community acquired pneumonia: Code(s): J18.9 - Pneumonia, unspecified organism Status: Acute Assessment and Plan: CXR on admission showing LLL airspace disease. She presented with SOB but was tachycardic at the time to 150. Tmax 100.1 o/w afebrile. WBC normal. COVID negative. She was started on azithromycin and Rocephin for PNA but consider mild pulm edema from the tachycardia (BNP 5600). Blood cultures no growth. Lasix started. Still with O2 requirement. Repeat CXR 12/02/19 showing bilateral infiltrates. Patient refused swallow study. Wean O2 as toelrated. COntinue abx for now. (2) Atrial fibrillation: Qualifiers: Atrial fibrillation type: persistent (not longstanding) Qualified Code(s): I48.19 - Other persistent atrial fibrillation Code(s): I48.91 - Unspecified atrial fibrillation Status: Acute Assessment and Plan: Patient has a history of having irregular heart rate in the past but not documented AFib. She is on Cardizem at home. She was on IV Diltiazem but has been transitioned to oral Diltiazem. TSH normal. Echo showing EF 55-60% with Grade II diastolic dysfunction. She has biatrial chambers that are severely enlarged with RV enlargement and mild HK. Also with moderately severe MR, moderate TR and moderate pulm HTN. Significantly elevated RAP. [id number] 4 and HAS-BLED 3. Discussed with Cardiology. Plan to add Amio to improve rate without affecting the BP. Doubtful she will convert to NSR given the severely dilated atria. Continue anticoagulation with Coumadin. Lovenox bridging to Coumadin. INR 1.5. (3) Hypertension: Code(s): I10 - Essential (primary) hypertension Status: Chronic Assessment and Plan: BP reviewed on 12/03/19. BP remains soft. As above. Continue to follow (4) Chronic back pain: Qualifiers: Back pain laterality: right Back pain location: low back pain Sciatica presence: without sciatica Qualified Code(s): M54.5 - Low back pain; G89.29 - Other chronic pain Code(s): M54.9 - Dorsalgia, unspecified; G89.29 - Other chronic pain Status: Acute Assessment and Plan: Patient not on chronic pain meds at home. Add Tylenol. (5) Osteoporosis: Qualifiers: Osteoporosis type: age-related Presence of current pathological fracture: unspecified Qualified Code(s): M81.0 - Age-related osteoporosis without current pathological fracture Code(s): M81.0 - Age-related osteoporosis without current pathological fracture Status: Acute Assessment and Plan: Stable. Continue with Fosamax (6) Mitral regurgitation: Code(s): I34.0 - Nonrheumatic mitral (valve) insufficiency Status: Acute Assessment and Plan: Echo showing moderately severe MR. Surgery being considered and patient would be okay with surgery if this is required. Per Cardiology. (7) Suspected COVID-19 virus infection: Code(s): Z20.828 - Contact with and (suspected) exposure to other viral communicable diseases Status: Acute Assessment and Plan: COVID negative. Isolation stopped. (8) Hyperkalemia: Code(s): E87.5 - Hyperkalemia Status: Acute Assessment and Plan: Potassium 5.2 for unclear reasons. Lab error? She is now on Lasix which will help. Na also low which could be related to recent Lasix dosing of from fluid overload. Follow. Repeat potasium 5.4. Check Cortisol Subjective Date/time seen: 12/03/19 13:19 Interval history: 84yo female here for CAP and Afib. No issues overnight per RN. No CP. SOB about the same but with [place] per RN when walking to the BR. Up to the chair. She has a poor appetite. Exam Narrative: Exam Narrative: AF 96/63 113 Gen - NARD sitting up in the chair Chest -mild bibasialr inspiratory crackles. Nml RR CV - irregularly irregular, +murmur.
[2019-12-03 13:55] LABS: Potassium 5.4 mmol/L (3.4-5.0)
[2019-12-03] MEDS: AMIODARONE HCL 200 MG TABLET PO ×2 (15:05→20:50)
[2019-12-03] MEDS: ENOXAPARIN 60 MG/0.6 ML SYRINGE 50 MG SUB-Q (15:05)
[2019-12-03] MEDS: WARFARIN (*PBKC) 5 MG TABLET PO (17:04)
[2019-12-04] VITALS (23 sets, daily range): BP systolic 91–104; BP diastolic 60–69; PULSE 84–118; RESP 20; TEMP 36.1–36.9; O2SAT 86–99
[2019-12-04] MEDS: LEVALBUTEROL HFA (*SP) 15 GM INHALER 2 PUFF INHALATION ×4 (00:59→19:34)
[2019-12-04 04:37] LABS: INR 2.4; Prothrombin Time 25.4 Seconds (11.1-14.7)
[2019-12-04 04:40] LABS: Anion Gap 7 mmol/L (8-16); Blood Urea Nitrogen 43 mg/dL (7-17); Calcium 9.1 mg/dL (8.4-10.2); Carbon Dioxide 32 mmol/L (22-30); Chloride 89 mmol/L (98-107); Estimated CRCL calculation 27 ml/min; Estimated Glomerular Filt Rate 47; Glucose 104 mg/dL (65-105); Potassium 5.5 mmol/L (3.4-5.0); Sodium 128 mmol/L (137-145)
[2019-12-04] MEDS: AMIODARONE HCL 200 MG TABLET PO ×3 (05:21→20:13)
[2019-12-04] MEDS: FUROSEMIDE 20 MG TABLET PO ×2 (08:05→17:02)
[2019-12-04] MEDS: METOPROLOL TARTRATE 25 MG TABLET PO ×2 (08:05→20:13)
--- NOTE | 2019-12-04 10:06 | PM.PNCARD ---
Progress Note: A&P Assessment and Plan (1) Atrial fibrillation: Qualifiers: Atrial fibrillation type: persistent (not longstanding) Qualified Code(s): I48.19 - Other persistent atrial fibrillation Code(s): I48.91 - Unspecified atrial fibrillation Status: Acute Assessment and Plan: Probably new onset, though she thinks that she has had AFib in the past. Aiming for rate control and anticoagulation strategy; huge left atrium and significant MR unlikely to maintain NSR if cardioverted. With metoprolol 25 mg b.i.d. with diltiazem 240 mg daily patient ran a low blood pressure in the 90s, limiting diarrhea Limiting diuresis. Change diltiazem to amiodarone 12/03/2019. Blood pressure slightly better today, can diurese (2) Acute diastolic CHF (congestive heart failure): Code(s): I50.31 - Acute diastolic (congestive) heart failure Status: Acute Assessment and Plan: Has diastolic CHF. Lasix 20 mg IV 12/01/2019 Try increasing Lasix to 20 mg b.i.d.. Unfortunately is BUN is rising and patient has mild hyperkalemia. Creat stable. 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 Warfarin started 12/01/2019. Daily INR while she is in the hospital. Today's INR jumped up to 2.4 , not surprising in view of the patient's amiodarone and erythromycin as well as frail body habitus. DC Lovenox. Will give warfarin 0.5 mg p.o. today as I won't be surprised if INR > 3 tmr. . (4) Mitral regurgitation: Code(s): I34.0 - Nonrheumatic mitral (valve) insufficiency Status: Acute Assessment and Plan: Moderately severe mitral regurgitation, and moderate TR. Long-term prognosis is not good because of low blood pressure, frailty, mitral regurgitation etc. Discussed therapy goals with the patient. Since she lives independently and can still think ahead she desires aggressive therapy and would be amenable to a procedure such as mitral valve clip. She appears too frail, to me, to consider open mitral valve repair. Hopefully we can improve CHF and later refer to [place] for consideration of mitral valve clip. (5) Tricuspid regurgitation: Code(s): I07.1 - Rheumatic tricuspid insufficiency Status: Acute Assessment and Plan: Moderate TR. (6) Community acquired pneumonia: Code(s): J18.9 - Pneumonia, unspecified organism Status: Acute Assessment and Plan: possible pneumonia, SOB and low-grade temp on admission, left lower lobe atelectasis / pneumonia. On antibiotics. Subjective Date/time seen: 12/04/19 10:06 Interval history: Follow up for: Atrial fibrillation with rapid ventricular response , Acute diastolic heart failure, and moderately severe mitral regurgitation. Also has a history of ventricular tachycardia ablation by Dr. Tiwari, pneumonia 12/02/2019 Visit: Unhappy that she has not had breakfast yet. Breakfast is on the tray in front of her. Denied chest pain, shortness of breath, cough, lightheadedness or palpitations. Lasix held because of soft blood pressure; runs in the 90s. Visit: 12/03/2019 Patient reports that she has been up to the bathroom and ambulated in the room with a walker. Feels weak and tired but not much shortness of breath. No dizziness. Telemetry shows heart rate runs in the 80s at rest, occasionally will jump to the 130s with activity. still on O2 at 2 L. Date of service 12/04/2019: weighted and short of breath after walking to bathroom. Yesterday I discontinued diltiazem and started amiodarone for heart rate control, hoping we could have a better blood pressure to work with, and start
--- NOTE | 2019-12-04 14:39 | PM.IMPN ---
Progress Note: A&P Assessment and Plan (1) Community acquired pneumonia: Code(s): J18.9 - Pneumonia, unspecified organism Status: Acute Assessment and Plan: CXR on admission showing LLL airspace disease. She presented with SOB but was tachycardic at the time to 150. Tmax 100.1 o/w afebrile. WBC normal. COVID negative. She was started on azithromycin and Rocephin for PNA but consider mild pulm edema from the tachycardia (BNP 5600). Blood cultures no growth. Was on Lasix but this was stopped. Still with O2 requirement. Repeat CXR 12/02/19 showing bilateral infiltrates. Patient refused swallow study. Wean O2 as toelrated. COntinue Rocephin but will stop Azithro. (2) Atrial fibrillation: Qualifiers: Atrial fibrillation type: persistent (not longstanding) Qualified Code(s): I48.19 - Other persistent atrial fibrillation Code(s): I48.91 - Unspecified atrial fibrillation Status: Acute Assessment and Plan: Patient has a history of having irregular heart rate in the past but not documented AFib. She is on Cardizem at home. She was on IV Diltiazem but has been transitioned to oral Diltiazem. TSH normal. Echo showing EF 55-60% with Grade II diastolic dysfunction. She has biatrial chambers that are severely enlarged with RV enlargement and mild HK. Also with moderately severe MR, moderate TR and moderate pulm HTN. Significantly elevated RAP. [id number] 4 and HAS-BLED 3. Discussed with Cardiology. Plan to add Amio to improve rate without affecting the BP. Doubtful she will convert to NSR given the severely dilated atria. Continue anticoagulation with Coumadin. INR 2.4 now. Lovenox stopped. (3) Hypertension: Code(s): I10 - Essential (primary) hypertension Status: Chronic Assessment and Plan: BP reviewed on 12/04/19. BP remains soft. As above. Continue to follow (4) Chronic back pain: Qualifiers: Back pain laterality: right Back pain location: low back pain Sciatica presence: without sciatica Qualified Code(s): M54.5 - Low back pain; G89.29 - Other chronic pain Code(s): M54.9 - Dorsalgia, unspecified; G89.29 - Other chronic pain Status: Acute Assessment and Plan: Patient not on chronic pain meds at home. Continue Tylenol. (5) Osteoporosis: Qualifiers: Osteoporosis type: age-related Presence of current pathological fracture: unspecified Qualified Code(s): M81.0 - Age-related osteoporosis without current pathological fracture Code(s): M81.0 - Age-related osteoporosis without current pathological fracture Status: Acute Assessment and Plan: Stable. Continue with Fosamax (6) Mitral regurgitation: Code(s): I34.0 - Nonrheumatic mitral (valve) insufficiency Status: Acute Assessment and Plan: Echo showing moderately severe MR. Surgery being considered and patient would be okay with surgery if this is required. Per Cardiology. (7) Suspected COVID-19 virus infection: Code(s): Z20.828 - Contact with and (suspected) exposure to other viral communicable diseases Status: Acute Assessment and Plan: COVID negative. Isolation stopped. (8) Hyperkalemia: Code(s): E87.5 - Hyperkalemia Status: Acute Assessment and Plan: Potassium 5.5 now. Cortisol level elevated which would not clinically make sense. Currently on Lasix. Could be related to renal insufficiency. Na still low but stable. Not on medications to raise the potassium. Start low potasium diet. Repeat Cortisol to confirm. Subjective Date/time seen: 12/04/19 14:39 Interval history: 84yo female here for CAP and Afib. SOB better. No CP. No n/v. No leg pain and feels the edema is better. Exam Narrative: Exam Narrative: AF 98/64 101 20 98% 2L Gen - NARD sitting up in the chair Chest -few basilar rhonchi, nml RR CV - irregularly ir
[2019-12-04] MEDS: WARFARIN (*PBKC) 0.5 MG TABLET PO (17:02)
[2019-12-05] VITALS (23 sets, daily range): BP systolic 90–106; BP diastolic 62–75; PULSE 87–114; RESP 16–22; TEMP 35.8–36.8; O2SAT 84–97
[2019-12-05] MEDS: LEVALBUTEROL HFA (*SP) 15 GM INHALER 2 PUFF INHALATION ×4 (01:16→21:24)
[2019-12-05 05:00] LABS: INR 3.1; Prothrombin Time 31.2 Seconds (11.1-14.7)
[2019-12-05 05:07] LABS: Anion Gap 6 mmol/L (8-16); Blood Urea Nitrogen 48 mg/dL (7-17); Calcium 8.7 mg/dL (8.4-10.2); Carbon Dioxide 32 mmol/L (22-30); Chloride 88 mmol/L (98-107); Estimated CRCL calculation 20 ml/min; Estimated Glomerular Filt Rate 33; Glucose 97 mg/dL (65-105); Potassium 5.2 mmol/L (3.4-5.0); Sodium 126 mmol/L (137-145)
[2019-12-05] MEDS: AMIODARONE HCL 200 MG TABLET PO ×3 (06:24→23:08)
[2019-12-05] MEDS: FUROSEMIDE 20 MG TABLET PO (08:08)
[2019-12-05] MEDS: METOPROLOL TARTRATE 25 MG TABLET PO ×2 (08:08→20:38)
--- NOTE | 2019-12-05 10:41 | PM.PNCARD ---
Progress Note: A&P Assessment and Plan (1) Atrial fibrillation: Qualifiers: Atrial fibrillation type: persistent (not longstanding) Qualified Code(s): I48.19 - Other persistent atrial fibrillation Code(s): I48.91 - Unspecified atrial fibrillation Status: Acute Assessment and Plan: Probably new onset, though she thinks that she has had AFib in the past. Aiming for rate control and anticoagulation strategy; huge left atrium and significant MR unlikely to maintain NSR if cardioverted. on amiodarone and metoprolol. Blood pressure slightly better today, can diurese (2) Acute diastolic CHF (congestive heart failure): Code(s): I50.31 - Acute diastolic (congestive) heart failure Status: Acute Assessment and Plan: Has diastolic CHF. Decrease her furosemide to 20 mg daily. Creatinine is increasing. Repeat PA and lateral chest x-ray today Unfortunately is BUN is rising and patient has mild hyperkalemia. 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 Warfarin started 12/01/2019. Daily INR while she is in the hospital. Today's INR jumped up to 2.4 , not surprising in view of the patient's amiodarone and erythromycin as well as frail body habitus. DC Lovenox. Will give warfarin 0.5 mg p.o. today as I won't be surprised if INR > 3 tmr. hold warfarin today and she may need Q every other day warfarin . (4) Mitral regurgitation: Code(s): I34.0 - Nonrheumatic mitral (valve) insufficiency Status: Acute Assessment and Plan: Moderately severe mitral regurgitation, and moderate TR. Long-term prognosis is not good because of low blood pressure, frailty, mitral regurgitation etc. Discussed therapy goals with the patient. Since she lives independently and can still think ahead she desires aggressive therapy and would be amenable to a procedure such as mitral valve clip. She appears too frail, to me, to consider open mitral valve repair. Hopefully we can improve CHF and later refer to [place] for consideration of mitral valve clip. (5) Tricuspid regurgitation: Code(s): I07.1 - Rheumatic tricuspid insufficiency Status: Acute Assessment and Plan: Moderate TR. (6) Community acquired pneumonia: Code(s): J18.9 - Pneumonia, unspecified organism Status: Acute Assessment and Plan: possible pneumonia, SOB and low-grade temp on admission, left lower lobe atelectasis / pneumonia. On antibiotics. Subjective Date/time seen: 12/05/19 10:41 Interval history: Follow up for: Atrial fibrillation with rapid ventricular response , Acute diastolic heart failure, and moderately severe mitral regurgitation. Also has a history of ventricular tachycardia ablation by Dr. Tiwari, pneumonia 12/02/2019 Visit: Unhappy that she has not had breakfast yet. Breakfast is on the tray in front of her. Denied chest pain, shortness of breath, cough, lightheadedness or palpitations. Lasix held because of soft blood pressure; runs in the 90s. Visit: 12/03/2019 Patient reports that she has been up to the bathroom and ambulated in the room with a walker. Feels weak and tired but not much shortness of breath. No dizziness. Telemetry shows heart rate runs in the 80s at rest, occasionally will jump to the 130s with activity. still on O2 at 2 L. Date of service 12/04/2019: weighted and short of breath after walking to bathroom. Yesterday I discontinued diltiazem and started amiodarone for heart rate control, hoping we could have a better blood pressure to work with, and started furosemide 20 mg p.o. daily. Blood pressure is runni
--- NOTE | 2019-12-05 15:36 | PM.IMPN ---
Progress Note: A&P Assessment and Plan (1) ENOCH (acute kidney injury): Code(s): N17.9 - Acute kidney failure, unspecified Status: Acute Assessment and Plan: Cr now 1.5. [place] related to the Lasix. Dose decreased. Will hold Lasix for now until renal function improves. Continue to follow. Check renal US. Monitor electrolytes. Renal US shoiwng mild right hydronephrosis. Doubt this is contribnuting to her ENOCH. ALso noted is bilateral pleural effusions. (2) Community acquired pneumonia: Code(s): J18.9 - Pneumonia, unspecified organism Status: Acute Assessment and Plan: CXR on admission showing LLL airspace disease. She presented with SOB but was tachycardic at the time to 150. Tmax 100.1 o/w afebrile. WBC normal. COVID negative. She was started on azithromycin and Rocephin for PNA but consider mild pulm edema from the tachycardia (BNP 5600). Blood cultures no growth. Still with O2 requirement but better. Repeat CXR 12/02/19 showing bilateral infiltrates. Patient refused swallow study. Wean O2 as tolerated. Completed a coarse of Azithromycin. Continue Rocephin through today (Day 7) then stop. (3) Atrial fibrillation: Qualifiers: Atrial fibrillation type: persistent (not longstanding) Qualified Code(s): I48.19 - Other persistent atrial fibrillation Code(s): I48.91 - Unspecified atrial fibrillation Status: Acute Assessment and Plan: Patient has a history of having irregular heart rate in the past but not documented AFib. She is on Cardizem at home. She was on IV Diltiazem but has been transitioned to oral Diltiazem. TSH normal. Echo showing EF 55-60% with Grade II diastolic dysfunction. She has biatrial chambers that are severely enlarged with RV enlargement and mild HK. Also with moderately severe MR, moderate TR and moderate pulm HTN. Significantly elevated RAP. [id number] 4 and HAS-BLED 3. Discussed with Cardiology. Amiodarone added to improve rate without affecting the BP. Doubtful she will convert to NSR given the severely dilated atria. Continue anticoagulation with Coumadin. INR 3.1 today. Coumadin management per Cardiology. Check INR in the morning. (4) Hypertension: Code(s): I10 - Essential (primary) hypertension Status: Chronic Assessment and Plan: BP reviewed on 12/05/19. BP remains soft. As above. Continue to follow (5) Chronic back pain: Qualifiers: Back pain laterality: right Back pain location: low back pain Sciatica presence: without sciatica Qualified Code(s): M54.5 - Low back pain; G89.29 - Other chronic pain Code(s): M54.9 - Dorsalgia, unspecified; G89.29 - Other chronic pain Status: Acute Assessment and Plan: Patient not on chronic pain meds at home. Continue Tylenol. (6) Osteoporosis: Qualifiers: Osteoporosis type: age-related Presence of current pathological fracture: unspecified Qualified Code(s): M81.0 - Age-related osteoporosis without current pathological fracture Code(s): M81.0 - Age-related osteoporosis without current pathological fracture Status: Acute Assessment and Plan: Stable. Continue with Fosamax (7) Mitral regurgitation: Code(s): I34.0 - Nonrheumatic mitral (valve) insufficiency Status: Acute Assessment and Plan: Echo showing moderately severe MR. Surgery being considered and patient would be okay with surgery if this is required. Per Cardiology. (8) Suspected COVID-19 virus infection: Code(s): Z20.828 - Contact with and (suspected) exposure to other viral communicable diseases Status: Acute Assessment and Plan: COVID negative. Isolation stopped. (9) Hyperkalemia: Code(s): E87.5 - Hyperkalemia Status: Acute Assessment and Plan: Potassium 5.2 today. Cortisol level elevated which would not clinically make sense. Repeat
--- NOTE | 2019-12-05 19:19 | PC.NURSE ---
This patient, Brandan Hoffman, was transferred to [[id number]] on 12/05/19 at 1919. Personal belongings sent with patient. Belongings list checked and signed with receiving [ ]. Report given to [ALEXI Zamora @ 1916]. Appropriate documentation sent with patient.
--- NOTE | 2019-12-05 19:23 | PC.NURSE ---
This patient, Brandan Hoffman, was received from [ [facility]U] on 12/05/19 at 1923. Personal belongings list checked and signed. Patient/family oriented to unit policies and routines
[2019-12-06] VITALS (16 sets, daily range): BP systolic 96–107; BP diastolic 60–76; PULSE 50–110; RESP 16–18; TEMP 36.4–36.7; O2SAT 90–94
[2019-12-06] MEDS: LEVALBUTEROL HFA (*SP) 15 GM INHALER 2 PUFF INHALATION ×4 (02:09→21:02)
[2019-12-06 05:59] LABS: Hemoglobin 12.3 g/dL (12.0-15.0); Mean Corpuscular HGB Conc 33.2 g/dl (32-36); Mean Corpuscular Volume 96.4 fl (80-100); Mean Platelet Volume 9.2 fl (7.4-10.4); Platelet Count Result 420 k/mm3 (150-375); Red Blood Count 3.84 M/mm3 (4.2-5.4); White Blood Count 6.7 K/mm3 (4.5-10.0)
[2019-12-06 06:11] LABS: Albumin Level 2.9 g/dL (3.5-5.1); Anion Gap 6 mmol/L (8-16); Blood Urea Nitrogen 51 mg/dL (7-17); Calcium 8.6 mg/dL (8.4-10.2); Carbon Dioxide 33 mmol/L (22-30); Chloride 88 mmol/L (98-107); Estimated CRCL calculation 21 ml/min; Estimated Glomerular Filt Rate 36; Glucose 94 mg/dL (65-105); Magnesium 2.2 mg/dL (1.6-2.3); Phosphorus 3.1 mg/dL (2.5-4.5); Potassium 4.7 mmol/L (3.4-5.0); Sodium 127 mmol/L (137-145)
[2019-12-06 06:13] LABS: INR 2.7; Prothrombin Time 28.4 Seconds (11.1-14.7)
[2019-12-06] MEDS: AMIODARONE HCL 200 MG TABLET PO ×3 (06:18→20:55)
[2019-12-06] MEDS: METOPROLOL TARTRATE 25 MG TABLET PO ×2 (08:37→20:56)
--- NOTE | 2019-12-06 11:02 | PM.PNCARD ---
Progress Note: A&P Assessment and Plan (1) Atrial fibrillation: Qualifiers: Atrial fibrillation type: persistent (not longstanding) Qualified Code(s): I48.19 - Other persistent atrial fibrillation Code(s): I48.91 - Unspecified atrial fibrillation Status: Acute Assessment and Plan: Probably new onset, though she thinks that she has had AFib in the past. Aiming for rate control and anticoagulation strategy; huge left atrium and significant MR unlikely to maintain NSR if cardioverted. on amiodarone and metoprolol. Blood pressure slightly better today, can diurese (2) Acute diastolic CHF (congestive heart failure): Code(s): I50.31 - Acute diastolic (congestive) heart failure Status: Acute Assessment and Plan: Has diastolic CHF. pleural effusions remain. Renal function and potassium levels are little better (3) Chronic anticoagulation: Code(s): Z79.01 - shelter (current) use of anticoagulants Status: Acute Assessment and Plan: Xarelto/Eliquis too costly. Warfarin started 12/01/2019. Daily INR while she is in the hospital. Today's INR jumped up to 2.4 , not surprising in view of the patient's amiodarone and erythromycin as well as frail body habitus. DC Lovenox. resume warfarin 0.5 mg p.o. Q every other day . (4) Mitral regurgitation: Code(s): I34.0 - Nonrheumatic mitral (valve) insufficiency Status: Acute Assessment and Plan: Moderately severe mitral regurgitation, and moderate TR. Long-term prognosis is not good because of low blood pressure, frailty, mitral regurgitation etc. Discussed therapy goals with the patient. Since she lives independently and can still think ahead she desires aggressive therapy and would be amenable to a procedure such as mitral valve clip. She appears too frail, to me, to consider open mitral valve repair. Hopefully we can improve CHF and later refer to [place] for consideration of mitral valve clip. (5) Tricuspid regurgitation: Code(s): I07.1 - Rheumatic tricuspid insufficiency Status: Acute Assessment and Plan: Moderate TR. (6) Community acquired pneumonia: Code(s): J18.9 - Pneumonia, unspecified organism Status: Acute Assessment and Plan: possible pneumonia, SOB and low-grade temp on admission, left lower lobe atelectasis / pneumonia. On antibiotics. Subjective Date/time seen: 12/06/19 11:02 Interval history: Follow up for: Atrial fibrillation with rapid ventricular response , Acute diastolic heart failure, and moderately severe mitral regurgitation. Also has a history of ventricular tachycardia ablation by Dr. Tiwari, pneumonia 12/02/2019 Visit: Unhappy that she has not had breakfast yet. Breakfast is on the tray in front of her. Denied chest pain, shortness of breath, cough, lightheadedness or palpitations. Lasix held because of soft blood pressure; runs in the 90s. Visit: 12/03/2019 Patient reports that she has been up to the bathroom and ambulated in the room with a walker. Feels weak and tired but not much shortness of breath. No dizziness. Telemetry shows heart rate runs in the 80s at rest, occasionally will jump to the 130s with activity. still on O2 at 2 L. Date of service 12/04/2019: weighted and short of breath after walking to bathroom. Yesterday I discontinued diltiazem and started amiodarone for heart rate control, hoping we could have a better blood pressure to work with, and started furosemide 20 mg p.o. daily. Blood pressure is running 92-104 mmHg. Heart rate is 95-110 ppm. Still on O2, 2 L. With the addition of amiodarone, INR jumped up to 2.4. Date of service 12/05/2019: Feels better. Less shortness of breath
--- NOTE | 2019-12-06 14:38 | PM.IMPN ---
Progress Note: A&P Assessment and Plan (1) ENOCH (acute kidney injury): Code(s): N17.9 - Acute kidney failure, unspecified Status: Acute Assessment and Plan: Cr now 1.4. [place] related to the Lasix. Will hold Lasix for now until renal function improves. Continue to follow. Renal US shoiwng mild right hydronephrosis. Doubt this is contribnuting to her ENOCH. ALso noted is bilateral pleural effusions. (2) Community acquired pneumonia: Code(s): J18.9 - Pneumonia, unspecified organism Status: Acute Assessment and Plan: CXR on admission showing LLL airspace disease. She presented with SOB but was tachycardic at the time to 150. afebrile. WBC normal. COVID negative. She was started on azithromycin and Rocephin for PNA but consider mild pulm edema from the tachycardia (BNP 5600). Blood cultures no growth. Now on room air Repeat CXR 12/02/19 showing bilateral infiltrates. Patient refused swallow study. Completed a coarse of Azithromycin. Finished Rocephin today (3) Atrial fibrillation: Qualifiers: Atrial fibrillation type: persistent (not longstanding) Qualified Code(s): I48.19 - Other persistent atrial fibrillation Code(s): I48.91 - Unspecified atrial fibrillation Status: Acute Assessment and Plan: Patient has a history of having irregular heart rate in the past but not documented AFib. She is on Cardizem at home. She was on IV Diltiazem but has been transitioned to oral Diltiazem. TSH normal. Echo showing EF 55-60% with Grade II diastolic dysfunction. She has biatrial chambers that are severely enlarged with RV enlargement and mild HK. Also with moderately severe MR, moderate TR and moderate pulm HTN. Significantly elevated RAP. [id number] 4 and HAS-BLED 3. Discussed with Cardiology. Amiodarone added to improve rate without affecting the BP. Doubtful she will convert to NSR given the severely dilated atria. Continue anticoagulation with Coumadin. INR 2.7 today. Coumadin management per Cardiology q 48H . Check INR in the morning. (4) Hypertension: Code(s): I10 - Essential (primary) hypertension Status: Chronic Assessment and Plan: BP reviewed on 12/06/19. BP remains soft. As above. Continue to follow (5) Chronic back pain: Qualifiers: Back pain location: low back pain Back pain laterality: right Sciatica presence: without sciatica Qualified Code(s): M54.5 - Low back pain; G89.29 - Other chronic pain Code(s): M54.9 - Dorsalgia, unspecified; G89.29 - Other chronic pain Status: Acute Assessment and Plan: Patient not on chronic pain meds at home. Continue Tylenol. (6) Osteoporosis: Qualifiers: Osteoporosis type: age-related Presence of current pathological fracture: unspecified Qualified Code(s): M81.0 - Age-related osteoporosis without current pathological fracture Code(s): M81.0 - Age-related osteoporosis without current pathological fracture Status: Acute Assessment and Plan: Stable. Continue with Fosamax (7) Mitral regurgitation: Code(s): I34.0 - Nonrheumatic mitral (valve) insufficiency Status: Acute Assessment and Plan: Echo showing moderately severe MR. Surgery being considered and patient would be okay with surgery if this is required. Per Cardiology. (8) Suspected COVID-19 virus infection: Code(s): Z20.828 - Contact with and (suspected) exposure to other viral communicable diseases Status: Acute Assessment and Plan: COVID negative. Isolation stopped. (9) Hyperkalemia: Code(s): E87.5 - Hyperkalemia Status: Acute Assessment and Plan: Potassium 4.7 today. Cortisol level elevated which would not clinically make sense. Repeat cortisol level lower. Suspect hyperkalemia related to renal insufficiency. She is on Lasix and Na low. Not on medications to raise
[2019-12-06] MEDS: WARFARIN (*PBKC) 0.5 MG TABLET PO (16:57)
[2019-12-07] VITALS (10 sets, daily range): BP systolic 100; BP diastolic 61; PULSE 60–110; RESP 16; TEMP 36.3; O2SAT 90–91
[2019-12-07] MEDS: LEVALBUTEROL HFA (*SP) 15 GM INHALER 2 PUFF INHALATION ×3 (02:53→14:37)
[2019-12-07] MEDS: AMIODARONE HCL 200 MG TABLET PO ×2 (05:55→14:32)
[2019-12-07 06:16] LABS: INR 2.8; Prothrombin Time 28.7 Seconds (11.1-14.7)
[2019-12-07 06:22] LABS: Anion Gap 4 mmol/L (8-16); Blood Urea Nitrogen 49 mg/dL (7-17); Calcium 8.5 mg/dL (8.4-10.2); Carbon Dioxide 34 mmol/L (22-30); Chloride 89 mmol/L (98-107); Estimated CRCL calculation 25 ml/min; Estimated Glomerular Filt Rate 43; Glucose 90 mg/dL (65-105); Potassium 4.5 mmol/L (3.4-5.0); Sodium 127 mmol/L (137-145)
[2019-12-07] MEDS: METOPROLOL TARTRATE 25 MG TABLET PO (09:29)
--- NOTE | 2019-12-07 09:59 | PM.PNCARD ---
Progress Note: A&P Assessment and Plan (1) Atrial fibrillation: Qualifiers: Atrial fibrillation type: persistent (not longstanding) Qualified Code(s): I48.19 - Other persistent atrial fibrillation Code(s): I48.91 - Unspecified atrial fibrillation Status: Acute Assessment and Plan: Probably new onset, though she thinks that she has had AFib in the past. Aiming for rate control and anticoagulation strategy; huge left atrium and significant MR unlikely to maintain NSR if cardioverted. on amiodarone and metoprolol. Blood pressure slightly better today, can diurese (2) Acute diastolic CHF (congestive heart failure): Code(s): I50.31 - Acute diastolic (congestive) heart failure Status: Acute Assessment and Plan: Has diastolic CHF. pleural effusions remain. Renal function and potassium levels are little better Furosemide 20 mg IV x1 (3) Chronic anticoagulation: Code(s): Z79.01 - [facility] (current) use of anticoagulants Status: Acute Assessment and Plan: Xarelto/Eliquis too costly. Warfarin started 12/01/2019. Daily INR while she is in the hospital. Today's INR jumped up to 2.4 , not surprising in view of the patient's amiodarone and erythromycin as well as frail body habitus. DC Lovenox. continuewarfarin 0.5 mg p.o. Q every other day . (4) Mitral regurgitation: Code(s): I34.0 - Nonrheumatic mitral (valve) insufficiency Status: Acute Assessment and Plan: Moderately severe mitral regurgitation, and moderate TR. Long-term prognosis is not good because of low blood pressure, frailty, mitral regurgitation etc. Discussed therapy goals with the patient. Since she lives independently and can still think ahead she desires aggressive therapy and would be amenable to a procedure such as mitral valve clip. She appears too frail, to me, to consider open mitral valve repair. Hopefully we can improve CHF and later refer to [place] for consideration of mitral valve clip. (5) Tricuspid regurgitation: Code(s): I07.1 - Rheumatic tricuspid insufficiency Status: Acute Assessment and Plan: Moderate TR. (6) Community acquired pneumonia: Code(s): J18.9 - Pneumonia, unspecified organism Status: Acute Assessment and Plan: possible pneumonia, SOB and low-grade temp on admission, left lower lobe atelectasis / pneumonia. On antibiotics. Subjective Date/time seen: 12/07/19 09:59 Interval history: Follow up for: Atrial fibrillation with rapid ventricular response , Acute diastolic heart failure, and moderately severe mitral regurgitation. Also has a history of ventricular tachycardia ablation by Dr. Tiwari, pneumonia 12/02/2019 Visit: Unhappy that she has not had breakfast yet. Breakfast is on the tray in front of her. Denied chest pain, shortness of breath, cough, lightheadedness or palpitations. Lasix held because of soft blood pressure; runs in the 90s. Visit: 12/03/2019 Patient reports that she has been up to the bathroom and ambulated in the room with a walker. Feels weak and tired but not much shortness of breath. No dizziness. Telemetry shows heart rate runs in the 80s at rest, occasionally will jump to the 130s with activity. still on O2 at 2 L. Date of service 12/04/2019: weighted and short of breath after walking to bathroom. Yesterday I discontinued diltiazem and started amiodarone for heart rate control, hoping we could have a better blood pressure to work with, and started furosemide 20 mg p.o. daily. Blood pressure is running 92-104 mmHg. Heart rate is 95-110 ppm. Still on O2, 2 L. With the addition of amiodarone, INR jumped up to 2.4. Date of service 12/05/2019: Feels better.
--- NOTE | 2019-12-07 10:52 | PCPTNOTE ---
Patient declined ambulation this morning stating I am not up to it. Patient encouraged to participate in transfers and gait to improve strength and mobility. Patient states that she plans to return home at discharge. Patient did participate in LE exercise interventions in bed.
--- NOTE | 2019-12-07 11:14 | WPDCDIQUERY2 ---
CDI Query Clarification Request - Acute Diastolic CHF has been documented by cardiology - No mention of CHF by hospitalists/attending Please clarify if acute diastolic CHF has been ruled in or ruled out.
[2019-12-07] MEDS: FUROSEMIDE INJ 40 MG/4 ML VIAL 20 MG IV PUSH (11:46)
--- NOTE | 2019-12-08 18:35 | PM.DS ---
DS: Admitting Diagnosis Admitting Diagnosis Admitting Diagnosis: New onset A.fib, pneumonia DS: Discharge Diagnosis Discharge Diagnosis (1) ENOCH (acute kidney injury): Code(s): N17.9 - Acute kidney failure, unspecified Status: Acute Assessment and Plan: Cr now 1.2 at discharge. Elysian related to the Lasix. . Renal US shoiwng mild right hydronephrosis. Doubt this is contribnuting to her ENOCH. no Lasix on discharge. (2) Community acquired pneumonia: Code(s): J18.9 - Pneumonia, unspecified organism Status: Acute Assessment and Plan: CXR on admission showing LLL airspace disease. She presented with SOB but was tachycardic at the time to 150. afebrile. WBC normal. COVID negative. She was started on azithromycin and Rocephin for PNA but consider mild pulm edema from the tachycardia (BNP 5600). Blood cultures no growth. Now on room air Repeat CXR 12/02/19 showing bilateral infiltrates. Patient refused swallow study. Completed a coarse of Azithromycin. Finished Rocephin day of discharge and as stated saturating above 90% on room air (3) Atrial fibrillation: Qualifiers: Atrial fibrillation type: persistent (not longstanding) Qualified Code(s): I48.19 - Other persistent atrial fibrillation Code(s): I48.91 - Unspecified atrial fibrillation Status: Acute Assessment and Plan: Patient has a history of having irregular heart rate in the past but not documented AFib. She is on Cardizem at home. She was on IV Diltiazem but has been transitioned to oral Diltiazem. TSH normal. Echo showing EF 55-60% with Grade II diastolic dysfunction. She has biatrial chambers that are severely enlarged with RV enlargement and mild HK. Also with moderately severe MR, moderate TR and moderate pulm HTN. Significantly elevated RAP. [id number] 4 and HAS-BLED 3. Discussed with Cardiology. Amiodarone added to improve rate without affecting the BP. Doubtful she will convert to NSR given the severely dilated atria. Continue anticoagulation with Coumadin. INR 2.8 day of discharge and patient did not want to pay 50 dollar co-pay for NOAC (4) Hypertension: Code(s): I10 - Essential (primary) hypertension Status: Chronic Assessment and Plan: BP reviewed on 12/07/19. BP remains soft. As above. low-dose metoprolol only on discharge (5) Chronic back pain: Qualifiers: Back pain laterality: right Back pain location: low back pain Sciatica presence: without sciatica Qualified Code(s): M54.5 - Low back pain; G89.29 - Other chronic pain Code(s): M54.9 - Dorsalgia, unspecified; G89.29 - Other chronic pain Status: Acute Assessment and Plan: Patient not on chronic pain meds at home. Continue Tylenol. (6) Osteoporosis: Qualifiers: Osteoporosis type: age-related Presence of current pathological fracture: unspecified Qualified Code(s): M81.0 - Age-related osteoporosis without current pathological fracture Code(s): M81.0 - Age-related osteoporosis without current pathological fracture Status: Acute Assessment and Plan: Stable. Continue with Fosamax (7) Mitral regurgitation: Code(s): I34.0 - Nonrheumatic mitral (valve) insufficiency Status: Acute Assessment and Plan: Echo showing moderately severe MR. Surgery being considered and patient would be okay with surgery if this is required. Per Cardiology. will follow-up with cardiology for further intervention (8) Suspected COVID-19 virus infection: Code(s): Z20.828 - Contact with and (suspected) exposure to other viral communicable diseases Status: Acute Assessment and Plan: COVID negative. Isolation stopped. (9) Hyperkalemia: Code(s): E87.5 - Hyperkalemia Status: Acute Assessment and Plan: Potassium 4.7 today. Cortisol level elevated which would not clin
--- NOTE | 2019-12-10 11:00 | PC.NURSE ---
Brandan called the unit after our post discharge phone call. Brandan stated she was out of breath after walking to the bathroom, she was able to speak in full sentences without stopping for breaths. I asked the Brandan if this came on suddenly or not, she said she had felt like this all morning. Brandan stated that she had questions about her medications but they are too far away for her to look at right now. I educated her on her new prescriptions. I advised Brandan that if the shortness of breath does not improve she should seek emergency help. Brandan stated that she did not want to come back to the hospital. I advised that Brandan should then call her primary physician or go to an urgent care. Brandan said she didn't feel like going to urgent care and that she does not have a primary physician but that she will ask her son if she can go see his. I made sure that the patient has the number to our nurses station so she can call back for any more questions.
== END 2019-12-07 15:10 | disposition home or self-care (01) | DRG 193 ==
LOC: ANHED 16:42 → ANHICU 18:57 → ANHIMU 12-01 11:02 → ANHICU 12-01 16:01 → ANHIMU 12-01 16:01 → ANH3MEDSUR 12-06 03:58 → ANHIMU 12-12 09:10
PROVIDERS: Internal Medicine Cardiovascular Disease; Nurse Practitioner; Admitting Provider Internal Medicine; Emergency Provider Emergency Medicine; Visit Provider Internal Medicine
DX: J18.9 Pneumonia, unspecified organism (principal); I50.31 Acute diastolic (congestive) heart failure; N17.9 Acute kidney failure, unspecified; T50.1X5A Adverse effect of loop [high-ceiling] diuretics, initial encounter; Z20.828 Contact with and (suspected) exposure to other viral communicable diseases; I48.91 Unspecified atrial fibrillation; I11.0 Hypertensive heart disease with heart failure; I34.0 Nonrheumatic mitral (valve) insufficiency; I07.1 Rheumatic tricuspid insufficiency; E87.5 Hyperkalemia; M81.0 Age-related osteoporosis without current pathological fracture; G89.29 Other chronic pain; M54.9 Dorsalgia, unspecified; F03.90 Unspecified dementia, unspecified severity, without behavioral disturbance, psychotic disturbance, mood disturbance, and anxiety
CPT/HCPCS: 36415; 36600; 51701; 71045; 71046; 76775; 80048; 80053; 80069; 80299; 81001; 82533; 82728; 82805; 83605; 83735; 83880; 84132; 84443; 84484; 85025; 85027; 85610; 85730; 86140; 87040; 87635; 93005; 93306; 94640; 96365; 96366; 96367; 96368; 96372; 96375; 97110; 97161; 97165; 97535; 99285; A9270; C9803; G0378; J0456; J0696; J1650; J1940; J7040; U0003

== ENCOUNTER 2019-12-11 06:35 | Inpatient (IN) | payer MEDICARE, SELFPAY ==
[2019-12-11] VITALS (9 sets, daily range): BP systolic 114–135; BP diastolic 65–91; PULSE 62–101; RESP 16–32; TEMP 36.8–37.1; O2SAT 90–100; BMI 19.1
--- NOTE | ~2019-12-11 | XR_ITS ---
EXAMINATION: XR chest 2V DATE: 12/11/2019 07:08 INDICATION: Shortness of breath. TECHNIQUE: Frontal and lateral views of the chest were obtained. COMPARISON: Chest 2 views 12/05/2019 FINDINGS: There are small pleural effusions, left worse than right. There are airspace opacities at t he lung bases. There is a diffuse interstitial pattern, consistent with mild pulmonary edema. No pneu mothorax. Cardiomegaly is noted. IMPRESSION: 1. Mild pulmonary edema. 2. Airspace opacities at the lung bases with interval improvement, consistent with atelectasis versus pneumonia. 3. Small pleural effusions, left worse than right with improvement. 4. Cardiomegaly. Reviewed, dictated and finalized at location A. IMPRESSION: 1. Mild pulmonary edema. 2. Airspace opacities at the lung bases with interval improvement, consistent w ith atelectasis versus pneumonia. 3. Small pleural effusions, left worse than right with improvement. 4. Cardiomegaly.
--- NOTE | 2019-12-11 06:45 | ECG_ITS ---
Measurements Intervals [place] Rate: 90 P: IL: 0 QRS: 92 QRSD: 151 T: -66 QT: 429 QTc: 525 Interpretive Statements ATRIAL FIBRILLATION RIGHT BUNDLE BRANCH BLOCK LOW VOLTAGE- LIMB LEADS ABNORMAL ECG Electronically Signed On 12-11-2019 8:05:27 CDT by Itz English D.O.
--- NOTE | 2019-12-11 07:40 | ED.GENADULT ---
HPI - General Adult General Chief complaint: Shortness of Breath/Dyspnea Stated complaint: sob/ weakness Time Seen by Provider: 12/11/19 07:04 Source: patient History of Present Illness HPI narrative: Patient is a 84 y/o female complaining of mild SOB since yesterday. She states she has was recently hospitalized with A fib. She states that her SOB is worsened by exertion and supine position. She denies any chest pain, cough or leg swelling. Related Data Allergies Allergy/AdvReac Type Severity Reaction Status Date / Time diclofenac Allergy Mild EYE Verified 06/30/19 09:41 DIFFICULT diflunisal Allergy Unknown unknown Verified 06/30/19 09:41 hydromorphone Allergy Unknown unknown Verified 06/30/19 09:41 TAPE Allergy Mild BLISTERS Uncoded 04/22/19 10:12 Review of Systems Constitutional: Constitutional: Denies chills, Denies fever(s), Denies headache(s) and Denies weakness Eyes: Eyes: Denies blurry vision ENT: Denies headache(s) and Denies neck pain Cardiovascular: Cardiovascular: Denies chest pain and Reports dyspnea Respiratory: Respiratory: Denies cough and Reports dyspnea Gastrointestinal: Gastrointestinal: Denies abdominal pain, Denies diarrhea, Denies nausea and Denies vomiting Genitourinary: Genitourinary: Denies hematuria and Denies dysuria Musculoskeletal: Musculoskeletal: Denies back pain and Denies neck pain Neurologic: Denies headache(s) and Denies weakness PMF Past Medical History Medical History Chronic back pain Dementia Hypertension Mitral regurgitation Osteoporosis Tricuspid regurgitation Surgical History Surgical History History of knee replacement (~2005) Family History Family History Grandparent Carcinoma of colon Family history of heart disease in male family member before age 55 Father Family history of emphysema Family history of lung disease Patient's father is Family history of chronic obstructive pulmonary disease Mother Family history of emphysema Family history of hypercholesterolemia Hypertension Patient's mother is Cerebrovascular accident Sibling Family history of lung cancer Family history of malignant neoplasm of breast in first degree relative Family history of heart disease in male family member before age 55 Patient's sister is Patient's brother is Cerebrovascular accident Family history of chronic obstructive pulmonary disease Other Family history of malignant neoplasm of male breast Social History Social History Social History: the patient has been for a long time she lives home alone. She gave to 2 children but her 1 son . The son that is Living is the durable power city attorney for healthcare. The patient desires to be a full code. She tells me she is a lifelong nonsmoker no alcohol no illicit drugs no marijuana. 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 Smoking status: Never smoker Second hand tobacco smoke exposure: No Alcohol intake: never Substance use: never Substance use type: does not use Gender identity (if verbalized by the patient): Female Spiritual care concerns: No Exam Const: General: no acute distress and well developed Orientation/consciousness: oriented to person, oriented to place, oriented to time and patient oriented x3 HENMT: Head: normocephalic Ears: external ears normal General nose exam: Normal external nose present Eyes: General: appearance normal, both eyes and all related structures Conjunctivae: conjunctivae normal Neck: Neck: normal visual inspection and full ROM Chest: Chest palpation & inspection: normal inspection of the chest and no tenderness Resp: Effort & Inspection: normal respiratory effort Auscultation: clear to ausc
[2019-12-11] MEDS: FUROSEMIDE INJ 40 MG/4 ML VIAL IV PUSH (07:43)
[2019-12-11 07:52] LABS: Basophils Percent Auto 0.2 % (0.2-1.2); Eosinophils Absolute Auto 0.1 K/mm3 (0-0.3); Eosinophils Percent Auto 0.4 % (0-4.4); Hematocrit 38.2 % (37.0-47.0); Hemoglobin 12.7 g/dL (12.0-15.0); Immature Granulocyte Absolute 0.06 K/mm3 (0.00-0.031); Immature Granulocyte Percent A 0.5 % (0-0.5); Lymphocytes Absolute Auto 0.72 K/mm3 (0.9-3.2); Lymphocytes Percent Auto 5.6 % (18.3-44.2); Mean Corpuscular HGB Conc 33.2 g/dl (32-36); Mean Corpuscular Hemoglobin 31.7 pg (26-34); Mean Corpuscular Volume 95.3 fl (80-100); Mean Platelet Volume 9.6 fl (7.4-10.4); Monocytes Absolute Auto 1.1 K/mm3 (0.1-0.6); Monocytes Percent Auto 8.6 % (2.6-8.5); Neutrophils Absolute Auto 10.8 K/mm3 (1.3-6.7); Neutrophils Percent Auto 84.7 % (45.5-73.1); Platelet Count Result 417 k/mm3 (150-375); Red Blood Count 4.01 M/mm3 (4.2-5.4); Red Cell Distribution Width 13.2 % (11.5-14.5); White Blood Count 12.8 K/mm3 (4.5-10.0)
[2019-12-11 08:07] LABS: Anion Gap 6 mmol/L (8-16); Blood Urea Nitrogen 26 mg/dL (7-17); Calcium 8.6 mg/dL (8.4-10.2); Carbon Dioxide 33 mmol/L (22-30); Chloride 90 mmol/L (98-107); Estimated CRCL calculation 15 ml/min; Estimated Glomerular Filt Rate 25; Glucose 99 mg/dL (65-105); Potassium 4.4 mmol/L (3.4-5.0); Sodium 129 mmol/L (137-145)
[2019-12-11 08:18] LABS: Troponin I < 0.012 ng/mL (0.000-0.034)
[2019-12-11] MEDS: ALBUTEROL SULFATE (*SP) AEROSOL 1 PUFF 2 PUFF INHALATION ×2 (08:20→21:53)
[2019-12-11] MEDS: ALBUTEROL SULFATE (*SP) INHALER 1 PUFF (08:20)
[2019-12-11 09:00] LABS: NT Pro B Type Natriuretic Pept 11500 PG/ML (5-100)
--- NOTE | 2019-12-11 09:20 | PC.NURSE ---
Pts son Lorne requests that we call him when we know what is going on . He can be reached at [phone]
--- NOTE | 2019-12-11 09:31 | PC.NURSE ---
Pt 6 hour troponin was put in for wrong time. This RN changed it to correct time.
[2019-12-11 11:32] LABS: Troponin I < 0.012 ng/mL (0.000-0.034)
--- NOTE | 2019-12-11 13:57 | PC.NURSE ---
Called Lorne and informed him what room pt is going too.
[2019-12-11 14:20] LABS: Troponin I < 0.012 ng/mL (0.000-0.034)
--- NOTE | 2019-12-11 14:25 | PC.NURSE ---
This patient, Brandan Hoffman, was admitted to [facility] Surg Room 331-01. Patient/family oriented to hospital policies and general routines including ID bracelet, bed and alarms, visiting hours, pain management, procedures, bathroom and other care routines, personal items, smoking policy, room service/diet, and visiting hours. Valuables list has been completed. Information on how to activate the Rapid Response Team has been discussed. Patient/Family are encouraged to report perceived risks to care and to ask questions if they do not understand what they are told or what they should do.
--- NOTE | 2019-12-11 19:29 | PM.IMHP ---
H&P: HPI History of Present Illness Date/Time: 12/11/19 19:29 Chief complaint: chf/mitral regurg Narrative: Brandan Hoffman is a 84 year old female Who was last admitted here on 11/29/2019. She was checked for covered at that time is found to be negative. The patient was found to be a new AFib. She had been on a Cardizem drip at that time. Her chest x-ray was read being read as atelectasis or pneumonia. And she was on antibiotics at that time. She was in the intensive care unit at that time. She had no fever chills. During her admission that time she was seen by forming department supervisor. She had an echo performed at that time. Patient was started on Lasix but her BUN was rising. She is placed on Coumadin. Patient was found to have moderately severe mitral regurgitation and moderate tricuspid regurgitation. Long-term prognosis is not good because of low blood pressure, frailty and mitral regurgitation extent drip. It was noted that it was discussed with the patient that therapy goes with the patient that she desires aggressive therapy and would be amendable to a procedure such as a mitral valve clip. She appears too frail, to consider open mitral valve repair. It was thought that once the congestive heart failure improved that maybe later they would for refer her to [place] for consideration of a mitral valve clip. However patient was discharged to home on 12/08/2019. She continued to be short of breath and could not handle activities of daily living. She was very short of breath with minimal exertion. She has no fever no chills. The patient pretty much stays at home and has not been out but a couple times to [facility]. And that was prior to her early urine admission this month. She tells me that her son is the durable power commercial real estate attorney for healthcare. When I received a phone call from the emergency room I did call Cardiology myself in explain to the ED physician about patient's condition and that we could not fix her shortness of breath here. Her chest x-ray today was read as mild pulmonary edema. Airspace opacities at the lung bases with interval improvement, consistent with atelectasis versus pneumonia. Small pleural effusion, left worse than right with improvement. Cardiomegaly. I reviewed the chest x-ray myself. Patient does not appear to have any COVID symptoms however ED swabbed her for COVID she is now on isolation. I thoroughly reviewed patient's echo and her last cardiology note with the patient. She does not recall having a conversation with forming department supervisor about her regurgitation. I gave her copy of her echo and explained everything to her. She recalls being in ICU the last admission and remembers her visit here but does not recall anything about her treatment plan for the valve regurgitation. Patient stated that she feels that she should have gone to [place] today. However I encouraged her to stay overnight we would have this discussion with her forming department supervisor tomorrow. For now she is in isolation and were awaiting her COVID test. She is currently in isolation and most likely will need the results of her COVID test. I personally talked to the forming department supervisor to determine the plan of care for the patient. Her renal functions do appear to have worsened so we can keep her overnight and monitor her renal function and give her IV Lasix. However her condition cannot be resolved Here in she will have chronic shortness of breath due to her Mitral valve regurgitation and tricuspid valve regurgitation. Patient was given an inhaler and IV Lasix x1 in the emergency room. Patient's EKG was read as atrial fibrillation with a rate in the 90s. Patient has been admitted to 3rd floor to rule out COVID she is placed in isolation I have spent approximately 60 minutes reviewing her complete records from this month. I reviewed her prognosis with her. Her code status still remains full code. Date of service is 12/11/2019. Review of Systems Review of Systems: Gareth
[2019-12-11 20:20] LABS: INR 2.5; Prothrombin Time 26.9 Seconds (11.1-14.7)
[2019-12-11] MEDS: METOPROLOL TARTRATE 25 MG TABLET PO (20:26)
[2019-12-11] MEDS: WARFARIN (*PBKC) 0.5 MG TABLET PO (20:31)
[2019-12-11] MEDS: AMIODARONE HCL 200 MG TABLET PO (21:17)
[2019-12-12] VITALS (13 sets, daily range): BP systolic 90–112; BP diastolic 57–76; PULSE 78–98; RESP 16–22; TEMP 36.3–36.8; O2SAT 93–99
[2019-12-12] MEDS: AMIODARONE HCL 200 MG TABLET PO ×2 (05:38→16:18)
[2019-12-12 06:54] LABS: Basophils Percent Auto 0.3 % (0.2-1.2); Eosinophils Percent Auto 0.2 % (0-4.4); Hematocrit 36.9 % (37.0-47.0); Hemoglobin 12.1 g/dL (12.0-15.0); Immature Granulocyte Absolute 0.04 K/mm3 (0.00-0.031); Immature Granulocyte Percent A 0.4 % (0-0.5); Lymphocytes Percent Auto 5.3 % (18.3-44.2); Mean Corpuscular HGB Conc 32.8 g/dl (32-36); Mean Corpuscular Hemoglobin 31.2 pg (26-34); Mean Corpuscular Volume 95.1 fl (80-100); Mean Platelet Volume 9.4 fl (7.4-10.4); Monocytes Absolute Auto 0.8 K/mm3 (0.1-0.6); Neutrophils Absolute Auto 9.9 K/mm3 (1.3-6.7); Neutrophils Percent Auto 86.8 % (45.5-73.1); Platelet Count Result 360 k/mm3 (150-375); Red Blood Count 3.88 M/mm3 (4.2-5.4); Red Cell Distribution Width 13.3 % (11.5-14.5); White Blood Count 11.4 K/mm3 (4.5-10.0)
[2019-12-12 07:51] LABS: Alanine Aminotransferase 38 U/L (4-35); Albumin Level 2.9 g/dL (3.5-5.1); Alkaline Phosphatase 73 U/L (38-126); Anion Gap 6 mmol/L (8-16); Aspartate Amino Transferase 35 U/L (14-36); Bilirubin,Total 0.2 mg/dL (0.2-1.3); Blood Urea Nitrogen 53 mg/dL (7-17); CRP 3.6 mg/dL (<1.0); Calcium 8.3 mg/dL (8.4-10.2); Carbon Dioxide 32 mmol/L (22-30); Chloride 91 mmol/L (98-107); Estimated CRCL calculation 16 ml/min; Estimated Glomerular Filt Rate 29; Glucose 95 mg/dL (65-105); Magnesium 2.3 mg/dL (1.6-2.3); Potassium 4.1 mmol/L (3.4-5.0); Sodium 129 mmol/L (137-145)
[2019-12-12] MEDS: METOPROLOL TARTRATE 25 MG TABLET PO ×2 (08:25→22:08)
--- NOTE | 2019-12-12 11:32 | PM.IMPN ---
Progress Note: A&P Assessment and Plan (1) CHF (congestive heart failure): Qualifiers: Heart failure chronicity: acute on chronic Heart failure type: unspecified Qualified Code(s): I50.9 - Heart failure, unspecified Code(s): I50.9 - Heart failure, unspecified Status: Chronic Assessment and Plan: Recent echo 11/30/19 shows EF 55-60% and grade II diastolic dysfunction. [place] [address], 2x greater than at previous admission. CXR shows mild pulmonary edema, small pleural effusions, and cardiomegaly. Cardiology has been consulted and recommendations are appreciated. She received Lasix during her previous stay and then subsequently developed ENOCH. She received a one time dose of 40 mg IV Lasix in the ED but was not continued due to worsened ENOCH. She appears euvolemic at this time. Continue to monitor volume status closely. Monitor I&O and daily weights. (2) Atrial fibrillation: Qualifiers: Atrial fibrillation type: persistent (not longstanding) Qualified Code(s): I48.19 - Other persistent atrial fibrillation Code(s): I48.91 - Unspecified atrial fibrillation Status: Chronic Assessment and Plan: Rate is controlled. Continue metoprolol, amiodarone, and warfarin. (3) ENOCH (acute kidney injury): Code(s): N17.9 - Acute kidney failure, unspecified Status: Chronic Assessment and Plan: Recent admission 11/28-12/07 she developed ENOCH, which was felt to be secondary to Lasix. She had a renal ultrasound which showed a mild right hydronephrosis. at presentation for this admission, creatinine was 1.9 which was higher than it was at prior visit. Improved today to 1.7. At this time will monitor renal function closely. Avoid IV fluids given pulmonary edema. Consider nephrology consult if renal failure worsens. No need to repeat renal ultrasound today. (4) Chronic anticoagulation: Code(s): Z79.01 - correction (current) use of anticoagulants Status: Acute Assessment and Plan: She is on warfarin for stroke prophylaxis secondary to atrial fibrillation. This was initiated during her last hospital stay. She did not wish to transition to NOAC due to the copay. INR is therapeutic today. Given advanced age and frailty, she is certainly a fall risk and at risk for bleeding. Continue to monitor PT/INR daily (5) Mitral regurgitation: Qualifiers: Cardiac valve disease etiology: etiology unspecified Qualified Code(s): I34.0 - Nonrheumatic mitral (valve) insufficiency Code(s): I34.0 - Nonrheumatic mitral (valve) insufficiency Status: Acute Assessment and Plan: Echo performed 11/30/2019 shows moderately severe mitral valve regurgitation. This is been a discussed extensively the patient by several providers. She initially expressed interest in surgical referral but now states that she does not wish to proceed with any invasive intervention given her age. I do not believe that she would be a good surgical candidate, regardless, as she is quite frail. Appreciate cardiology input I have discussed this with both the patient and her son, Jakub who is POA. (6) Hypertension: Qualifiers: Hypertension type: essential hypertension Qualified Code(s): I10 - Essential (primary) hypertension Code(s): I10 - Essential (primary) hypertension Status: Chronic Assessment and Plan: Blood pressures have been soft today. Continue metoprolol as BP tolerates as this is needed for rate control. (7) Suspected COVID-19 virus infection: Code(s): Z20.828 - Contact with and (suspected) exposure to other viral communicable diseases Status: Acute Assessment and Plan: Tested negative on 12/11/2019. Discontinue isolation precautions. (8) Generalized weakness: Code(s): R53.1 - Weakness Status: Acute Assessment and Plan: Judith
[2019-12-12 12:10] LABS: SARS-CoV-2 RNA PCR Negative
--- NOTE | 2019-12-12 13:22 | PCOTNOTE ---
OT evaluation attempted. Patient adamantly refusing therapy at this time stating she is tired and wants to be left alone. Refusing despite encouragement. Will attempt OT evaluation at later time.
--- NOTE | 2019-12-12 13:32 | PCPTNOTE ---
Attempted PT eval. Pt refused therapy, states she's too tired and just got here. Encouraged pt to participate w/ therapy and she still refused. Will try again at later time.
--- NOTE | 2019-12-12 15:17 | PM.CNCAR ---
Assessment and Plan Assessment and plan (1) (HFpEF) heart failure with preserved ejection fraction: Code(s): I50.30 - Unspecified diastolic (congestive) heart failure Status: Acute Assessment and Plan: EF 55%. BNP significantly elevated compared to her prior hospitalization, however, chest x-ray largely unchanged. Patient received 1 IV dose of Lasix in the ER without continuation due to acute renal failure. Patient appears to be fairly euvolemic at this time. Patient quite contradictory with regards to her symptoms. Previous documentation patient wanted aggressive therapy including surgical options, however, patient is now staying she does not wish to pursue surgery and or other invasive measures at her age. She again states she does not recall having any discussions regarding problems with the heart yet after discussed with some those details informed her options presented including referral to [place] to discuss mitral valve clip which she nodded in agreement. I asked if she recall this discussion and she said yes. She also states she was not eating and drinking very well and mostly eats canned soups at home, occasional roast beef. he denied lower extremity edema, orthopnea or PND. She denied abdominal fullness. (2) Atrial fibrillation: Qualifiers: Atrial fibrillation type: persistent (not longstanding) Qualified Code(s): I48.19 - Other persistent atrial fibrillation Code(s): I48.91 - Unspecified atrial fibrillation Status: Chronic Assessment and Plan: heart rate controlled on amiodarone and metoprolol. I suspect her ongoing fatigue side either related to recur coverage from her pneumonia and or persistent atrial fibrillation despite heart rate control. In this regard attempted NGUYỄN guided cardioversion to restore sinus rhythm was discussed, however, given severe left atrial enlargement, severity of mitral regurgitation likelihood of success is low in achieving sinus rhythm and certainly maintaining. As such rate control strategy appears to be the best option. Patient was also reluctant to consider cardioversion. Furthermore, patient's advanced age and frailty place her at high risk for surgical complications for valve repair and anesthesia/sedation and is not a good candidate in this regard. Conservative approach is favored by her and appears most reasonable. We discussed relative risks and benefits with cardioversion. She is favoring no further procedures. I informed her to communicate with us regarding any questions so that we may assist her in the best way possible and according to her wishes to collectively make the best decision. She verbalized understanding and appreciated our discussion. (3) Mitral regurgitation: Code(s): I34.0 - Nonrheumatic mitral (valve) insufficiency Status: Acute Assessment and Plan: Moderate severity by 2D echocardiogram a 11/30/2019. Certainly may be contributing to her clinical picture, however, I suspect majority of her symptoms are related to persistent atrial fibrillation and recovery from pneumonia. (4) Tricuspid regurgitation: Code(s): I07.1 - Rheumatic tricuspid insufficiency Status: Chronic Assessment and Plan: moderate severity, mod PHTN RVSP 49mmHg (5) Pulmonary hypertension: Code(s): I27.20 - Pulmonary hypertension, unspecified Status: Acute Assessment and Plan: see above. (6) Chronic anticoagulation: Code(s): Z79.01 - shelter (current) use of anticoagulants Status: Acute Assessment and Plan: therapeutic INR 2.5 on warfarin. Monitor for bleeding/melena. Pt increased risk for bleeding due to age and frailty. (7) ENOCH (acute kidney injury): Code(s): N17.9 - Acute kidney failure, unspecified Status: Chronic Assessment and Plan: Worsened from prior admission and post IV Lasix significant BUN and Cr prerenal component. Agree with holding on diuretics
[2019-12-13] VITALS (16 sets, daily range): BP systolic 81–97; BP diastolic 56–68; PULSE 77–110; RESP 16–20; TEMP 36.3–36.7; O2SAT 92–99
--- NOTE | 2019-12-13 00:38 | PC.NURSE ---
2207 notified nelson ladd of pt/s b/p / and has metoprolol and amiodarone due, per nelson give metoprolol and hold amiodarone [facility]
[2019-12-13] MEDS: AMIODARONE HCL 200 MG TABLET PO ×3 (06:27→21:27)
[2019-12-13 06:35] LABS: Basophils Percent Auto 0.2 % (0.2-1.2); Eosinophils Percent Auto 0.4 % (0-4.4); Hematocrit 37.2 % (37.0-47.0); Hemoglobin 12.2 g/dL (12.0-15.0); Immature Granulocyte Absolute 0.04 K/mm3 (0.00-0.031); Immature Granulocyte Percent A 0.4 % (0-0.5); Lymphocytes Absolute Auto 0.65 K/mm3 (0.9-3.2); Lymphocytes Percent Auto 7.2 % (18.3-44.2); Mean Corpuscular HGB Conc 32.8 g/dl (32-36); Mean Corpuscular Volume 94.7 fl (80-100); Mean Platelet Volume 9.6 fl (7.4-10.4); Monocytes Absolute Auto 0.7 K/mm3 (0.1-0.6); Monocytes Percent Auto 7.7 % (2.6-8.5); Neutrophils Absolute Auto 7.6 K/mm3 (1.3-6.7); Neutrophils Percent Auto 84.1 % (45.5-73.1); Platelet Count Result 321 k/mm3 (150-375); Red Blood Count 3.93 M/mm3 (4.2-5.4); Red Cell Distribution Width 13.3 % (11.5-14.5); White Blood Count 9.1 K/mm3 (4.5-10.0)
[2019-12-13 06:43] LABS: INR 2.8; Prothrombin Time 28.9 Seconds (11.1-14.7)
[2019-12-13 06:47] LABS: Anion Gap 6 mmol/L (8-16); Blood Urea Nitrogen 46 mg/dL (7-17); Calcium 8.1 mg/dL (8.4-10.2); Carbon Dioxide 33 mmol/L (22-30); Chloride 90 mmol/L (98-107); Estimated CRCL calculation 16 ml/min; Estimated Glomerular Filt Rate 29; Glucose 95 mg/dL (65-105); Magnesium 2.3 mg/dL (1.6-2.3); Potassium 4.1 mmol/L (3.4-5.0); Sodium 129 mmol/L (137-145)
--- NOTE | 2019-12-13 09:05 | PM.IMPN ---
Progress Note: A&P Assessment and Plan (1) CHF (congestive heart failure): Qualifiers: Heart failure chronicity: acute on chronic Heart failure type: unspecified Qualified Code(s): I50.9 - Heart failure, unspecified Code(s): I50.9 - Heart failure, unspecified Status: Chronic Assessment and Plan: Recent echo 11/30/19 shows EF 55-60% and grade II diastolic dysfunction. [place] [address], 2x greater than at previous admission. CXR shows mild pulmonary edema, small pleural effusions, and cardiomegaly. Cardiology has been consulted and recommendations are appreciated. She received Lasix during her previous stay and then subsequently developed ENOCH. She received a one time dose of 40 mg IV Lasix in the ED but was not continued due to worsened ENOCH. She appears euvolemic at this time. Continue to monitor volume status closely. Monitor I&O and daily weights. (2) Atrial fibrillation: Qualifiers: Atrial fibrillation type: persistent (not longstanding) Qualified Code(s): I48.19 - Other persistent atrial fibrillation Code(s): I48.91 - Unspecified atrial fibrillation Status: Chronic Assessment and Plan: Rate is controlled. Continue metoprolol, amiodarone, and warfarin. (3) ENOCH (acute kidney injury): Code(s): N17.9 - Acute kidney failure, unspecified Status: Chronic Assessment and Plan: Recent admission 11/28-12/07 she developed ENOCH, which was felt to be secondary to Lasix. She had a renal ultrasound which showed a mild right hydronephrosis. At presentation for this admission, creatinine was 1.9 which was higher than it was at prior visit. Improved today to 1.7. At this time will monitor renal function closely. Avoid IV fluids given pulmonary edema. Consider nephrology consult if renal failure worsens. No need to repeat renal ultrasound at this time. 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 This was initiated during her last hospital stay. She did not wish to transition to NOAC due to the copay. INR is therapeutic today. Given advanced age and frailty, she is certainly a fall risk and at risk for bleeding. Continue to monitor PT/INR daily (5) Mitral regurgitation: Qualifiers: Cardiac valve disease etiology: etiology unspecified Qualified Code(s): I34.0 - Nonrheumatic mitral (valve) insufficiency Code(s): I34.0 - Nonrheumatic mitral (valve) insufficiency Status: Acute Assessment and Plan: Echo performed 11/30/2019 shows moderately severe mitral valve regurgitation. This is been a discussed extensively the patient by several providers. She initially expressed interest in surgical referral but now states that she does not wish to proceed with any invasive intervention given her age. I do not believe that she would be a good surgical candidate, regardless, as she is quite frail. Appreciate cardiology input I have discussed this with both the patient and her son, Jakub who is POA. (6) Hypertension: Qualifiers: Hypertension type: essential hypertension Qualified Code(s): I10 - Essential (primary) hypertension Code(s): I10 - Essential (primary) hypertension Status: Chronic Assessment and Plan: Blood pressures have been soft today. Continue metoprolol as BP tolerates as this is needed for rate control. (7) Generalized weakness: Code(s): R53.1 - Weakness Status: Acute Assessment and Plan: Patient reports feeling chronically weak and fatigued. This is likely secondary to her atrial fibrillation and mitral regurgitation. She was at home alone and her son has concerns of her ability to ca
[2019-12-13] MEDS: WARFARIN (*PBKC) 0.5 MG TABLET PO (17:54)
--- NOTE | 2019-12-13 18:09 | PM.PNCARD ---
Progress Note: A&P Assessment and Plan (1) (HFpEF) heart failure with preserved ejection fraction: Qualifiers: Heart failure chronicity: acute on chronic Qualified Code(s): I50.33 - Acute on chronic diastolic (congestive) heart failure Code(s): I50.30 - Unspecified diastolic (congestive) heart failure Status: Acute Assessment and Plan: EF 55%. BNP significantly elevated compared to her prior hospitalization, however, chest x-ray largely unchanged. She received one dose IV dose of Lasix in the ER without continuation due to acute renal failure. She is euvolemic at this time. (2) Atrial fibrillation: Qualifiers: Atrial fibrillation type: persistent (not longstanding) Qualified Code(s): I48.19 - Other persistent atrial fibrillation Code(s): I48.91 - Unspecified atrial fibrillation Status: Chronic Assessment and Plan: Heart rate controlled on amiodarone and metoprolol. Ongoing fatigue either related to recovery from her pneumonia and/or persistent atrial fibrillation despite heart rate control. NGUYỄN guided cardioversion to restore sinus rhythm was discussed, however, given severe left atrial enlargement, severity of mitral regurgitation likelihood of success is low in achieving sinus rhythm and certainly maintaining. As such rate control strategy appears to be the best option. She was also reluctant to consider cardioversion. Her advanced age and frailty place her at high risk for surgical complications for valve repair and anesthesia/sedation and is not a good candidate in this regard. Conservative approach is favored by her and appears most reasonable. Relative risks and benefits with cardioversion were discussed with Dr Dietrich and she was favoring no further procedures. Blood pressure softer than normal today. Will decrease Metoprolol to 12.5 mg every 12 hours. Will decrease amiodarone to 200 mg every 12 hours wall. Continue telemetry monitoring. Monitor INR closely as she may need an adjustment in her warfarin. INR 2.8 today. (3) Mitral regurgitation: Qualifiers: Cardiac valve disease etiology: etiology unspecified Qualified Code(s): I34.0 - Nonrheumatic mitral (valve) insufficiency Code(s): I34.0 - Nonrheumatic mitral (valve) insufficiency Status: Acute Assessment and Plan: Moderate severity by 2D echocardiogram a 11/30/2019. Certainly may be contributing to her clinical picture, however, suspect majority of her symptoms are related to persistent atrial fibrillation and recovery from pneumonia. (4) Tricuspid regurgitation: Qualifiers: Cardiac valve disease etiology: nonrheumatic Qualified Code(s): I36.1 - Nonrheumatic tricuspid (valve) insufficiency Code(s): I07.1 - Rheumatic tricuspid insufficiency Status: Chronic Assessment and Plan: moderate severity, mod PHTN RVSP 49mmHg (5) Pulmonary hypertension: Code(s): I27.20 - Pulmonary hypertension, unspecified Status: Acute Assessment and Plan: see above. (6) Chronic anticoagulation: Code(s): Z79.01 - care home (current) use of anticoagulants Status: Acute Assessment and Plan: Daily INR. Adjustment may be needed with adjustment of amiodarone as above. Monitor for bleeding/melena. She is at increased risk for bleeding due to age and frailty . (7) ENOCH (acute kidney injury): Code(s): N17.9 - Acute kidney failure, unspecified Status: Chronic Assessment and Plan: Worsened from prior admission and post IV Lasix significant BUN and Cr prerenal component. Agree with holding on diuretics at present despite elevated BNP. Additional Plan Plan discussed with Dr Hurley 12/13/2019 Time Sp
[2019-12-13] MEDS: METOPROLOL TARTRATE 12.5 MG TABLET PO (21:26)
[2019-12-14] VITALS (12 sets, daily range): BP systolic 80–91; BP diastolic 55–61; PULSE 71–98; RESP 16–18; TEMP 35.9–36.5; O2SAT 95–100
[2019-12-14] MEDS: SODIUM CHLORIDE 0.9% IV 250 ML 999 ML IV CONT (06:14)
[2019-12-14 06:16] LABS: Hematocrit 38.3 % (37.0-47.0); Hemoglobin 12.5 g/dL (12.0-15.0); Mean Corpuscular HGB Conc 32.6 g/dl (32-36); Mean Corpuscular Hemoglobin 31.6 pg (26-34); Mean Corpuscular Volume 96.7 fl (80-100); Platelet Count Result 357 k/mm3 (150-375); Red Blood Count 3.96 M/mm3 (4.2-5.4); Red Cell Distribution Width 13.2 % (11.5-14.5); White Blood Count 9.9 K/mm3 (4.5-10.0)
[2019-12-14 06:20] LABS: INR 2.4; Prothrombin Time 25.8 Seconds (11.1-14.7)
[2019-12-14 06:24] LABS: Anion Gap 6 mmol/L (8-16); Blood Urea Nitrogen 51 mg/dL (7-17); Calcium 8.3 mg/dL (8.4-10.2); Carbon Dioxide 34 mmol/L (22-30); Chloride 89 mmol/L (98-107); Estimated CRCL calculation 16 ml/min; Estimated Glomerular Filt Rate 29; Glucose 100 mg/dL (65-105); Potassium 4.2 mmol/L (3.4-5.0); Sodium 129 mmol/L (137-145)
--- NOTE | 2019-12-14 06:30 | PC.NURSE ---
this rn notified dr garcia of b/p ,new orders recieved and carried out.
[2019-12-14] MEDS: SODIUM CHLORIDE 0.9% IV 250 ML IV CONT (08:44)
[2019-12-14] MEDS: AMIODARONE HCL 200 MG TABLET PO ×2 (10:02→20:23)
--- NOTE | 2019-12-14 12:45 | PM.IMPN ---
Progress Note: A&P Assessment and Plan (1) CHF (congestive heart failure): Qualifiers: Heart failure chronicity: acute on chronic Heart failure type: unspecified Qualified Code(s): I50.9 - Heart failure, unspecified Code(s): I50.9 - Heart failure, unspecified Status: Chronic Assessment and Plan: Recent echo 11/30/19 shows EF 55-60% and grade II diastolic dysfunction. [place] [address], 2x greater than at previous admission. CXR shows mild pulmonary edema, small pleural effusions, and cardiomegaly, which is stable upon review of prior CXR from 11/29/19. Cardiology has been consulted and recommendations are appreciated. She received Lasix during her previous stay and then subsequently developed ENOCH. She received a one time dose of 40 mg IV Lasix in the ED but was not continued due to worsened ENOCH. She did not appear to be fluid overloaded, and if anything was a bit dry. Continue to monitor volume status closely. Monitor I&O and daily weights. (2) Atrial fibrillation: Qualifiers: Atrial fibrillation type: persistent (not longstanding) Qualified Code(s): I48.19 - Other persistent atrial fibrillation Code(s): I48.91 - Unspecified atrial fibrillation Status: Chronic Assessment and Plan: Rate is controlled. Metoprolol decreased to 12.5 mg. Amiodarone decreased from q8h to 200 mg q12h. Continue warfarin. Monitor INR closely with amiodarone adjustments. (3) Hypotension: Code(s): I95.9 - Hypotension, unspecified Status: Acute Assessment and Plan: BP reviewed today and low at 82/56. Blood pressures have been soft. Mostly 80s/50s. She is tolerating this low BP and is asymptomatic. 25 mg metoprolol held 8/18 am due to low BP. Dose decreased to 12.5 mg administered 8/18 pm. Held 12/13 am as BP was low. She was given total 500 cc IV fluid bolus early this morning. Discussed with cardiology and will continue metoprolol with parameters to hold if systolic BP <85. Metoprolol is needed for rate control. BP should be taken with pediatric cuff. (4) ENOCH (acute kidney injury): Code(s): N17.9 - Acute kidney failure, unspecified Status: Chronic Assessment and Plan: Recent admission 11/28-12/07 she developed ENOCH, which was felt to be secondary to Lasix. She had a renal ultrasound which showed a mild right hydronephrosis. At presentation for this admission, creatinine was 1.9 which was higher than it was at prior visit. Improved today to 1.7. At this time will monitor renal function closely. She received 500 cc IV fluid bolus which may improve renal function. Avoid nephrotoxic agents and renally dose medications. No need to repeat renal US at this time. (5) Chronic anticoagulation: Code(s): Z79.01 - [facility]FP (current) use of anticoagulants Status: Acute Assessment and Plan: She is on warfarin for stroke prophylaxis secondary to atrial fibrillation. This was initiated during her last hospital stay. She did not wish to transition to NOAC due to the copay. INR is therapeutic today. Given advanced age and frailty, she is certainly a fall risk and at risk for bleeding. Continue to monitor PT/INR daily (6) Mitral regurgitation: Qualifiers: Cardiac valve disease etiology: etiology unspecified Qualified Code(s): I34.0 - Nonrheumatic mitral (valve) insufficiency Code(s): I34.0 - Nonrheumatic mitral (valve) insufficiency Status: Acute Assessment and Plan: Echo performed 11/30/2019 shows moderately severe mitral valve regurgitation. This is been a discussed extensively the patient by several providers. She initially expressed interest in surgical referral but now states that she does not wish to proceed with any invasive intervention given her age. I do not believe that she would be a good surgical candidate, regardless, as she is quite frail. Appreciate car
--- NOTE | 2019-12-14 14:30 | PM.PNCARD ---
Progress Note: A&P Assessment and Plan (1) (HFpEF) heart failure with preserved ejection fraction: Qualifiers: Heart failure chronicity: acute on chronic Qualified Code(s): I50.33 - Acute on chronic diastolic (congestive) heart failure Code(s): I50.30 - Unspecified diastolic (congestive) heart failure Status: Acute Assessment and Plan: EF 55%. BNP significantly elevated compared to her prior hospitalization, however, chest x-ray largely unchanged. She received one dose IV dose of Lasix in the ER without continuation due to acute renal failure. Euvolemic yesterday. Reported to have low BP this morning. Received 250 cc NS with little improvement. Additional 250 cc NS given. Instructed nursing staff to use pediatric cuff only. BP 89/61 at this time. No symptoms (2) Atrial fibrillation: Qualifiers: Atrial fibrillation type: persistent (not longstanding) Qualified Code(s): I48.19 - Other persistent atrial fibrillation Code(s): I48.91 - Unspecified atrial fibrillation Status: Chronic Assessment and Plan: Heart rate controlled on amiodarone and metoprolol. Dosing decreased starting today. Received 12.5 mg of metoprolol last evening. Metoprolol dc'd this morning by Dr Amin due to reported BP . She is asymptomatic. She will need small dose of BB with amiodarone for rate control. Restart metoprolol tartrate at 12.5 mg q 12 hours with holding parameters. Continue amiodarone 200 mg q 12 hours Continue warfarin 0.5 mg q 48 hours for now. Likely will need adjustment with decrease dose of amiodarone. Monitor INR closely. As she is so frail prefer INR closer to 2.0 than 3.0. (3) Mitral regurgitation: Qualifiers: Cardiac valve disease etiology: etiology unspecified Qualified Code(s): I34.0 - Nonrheumatic mitral (valve) insufficiency Code(s): I34.0 - Nonrheumatic mitral (valve) insufficiency Status: Acute Assessment and Plan: Moderate severity by 2D echocardiogram a 11/30/2019. Certainly may be contributing to her clinical picture, however, suspect majority of her symptoms are related to persistent atrial fibrillation and recovery from pneumonia. Not a candidate for intervention due to her fraility and she does not desire to have any procedures. 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 Adjustment may be needed with adjustment of amiodarone as above. Monitor for bleeding/melena. She is at increased risk for bleeding due to age and frailty . (7) ENOCH (acute kidney injury): Code(s): N17.9 - Acute kidney failure, unspecified Status: Chronic Assessment and Plan: Worsened from prior admission and post IV Lasix significant BUN and Cr prerenal component. Agree with holding on diuretics at present despite elevated BNP. Fluids as above. Monitor closely Additional Plan Plan discussed with Dr Hurley 143Ann 12/14/2019 Subjective Date/time seen: 12/14/19 14:30 Interval history: Follow-up for: Heart failure with preserved ejection fraction, atrial fibrillation -persistent, mitral insufficiency, tricuspid regurgitation,
--- NOTE | 2019-12-14 15:09 | PCPTNOTE ---
Patient declined A.M. and P.M. PT. Patient encouraged to participate. PT will continue to follow per plan of care.
[2019-12-14] MEDS: METOPROLOL TARTRATE 12.5 MG TABLET PO (20:23)
[2019-12-14 20:28] LABS: Creatinine Urine 134.2 mg/dL
[2019-12-14 20:29] LABS: Sodium Urine Random < 5 meq/L
[2019-12-15] VITALS (14 sets, daily range): BP systolic 81–107; BP diastolic 51–64; PULSE 61–100; RESP 16–18; TEMP 36.3–36.7; O2SAT 97–100
[2019-12-15 06:33] LABS: INR 2.4; Prothrombin Time 25.5 Seconds (11.1-14.7)
[2019-12-15 06:41] LABS: Anion Gap 6 mmol/L (8-16); Blood Urea Nitrogen 50 mg/dL (7-17); Calcium 8.1 mg/dL (8.4-10.2); Carbon Dioxide 34 mmol/L (22-30); Chloride 89 mmol/L (98-107); Estimated CRCL calculation 17 ml/min; Estimated Glomerular Filt Rate 31; Glucose 86 mg/dL (65-105); Sodium 129 mmol/L (137-145)
[2019-12-15] MEDS: AMIODARONE HCL 200 MG TABLET PO ×2 (08:06→21:57)
[2019-12-15] MEDS: METOPROLOL TARTRATE 12.5 MG TABLET PO ×2 (08:06→21:57)
--- NOTE | 2019-12-15 15:10 | PM.PNCARD ---
Progress Note: A&P Assessment and Plan (1) (HFpEF) heart failure with preserved ejection fraction: Qualifiers: Heart failure chronicity: acute on chronic Qualified Code(s): I50.33 - Acute on chronic diastolic (congestive) heart failure Code(s): I50.30 - Unspecified diastolic (congestive) heart failure Status: Acute Assessment and Plan: EF 55%. BNP significantly elevated compared to her prior hospitalization, however, chest x-ray largely unchanged. She received one dose IV dose of Lasix in the ER without continuation due to acute renal failure. Received a total of 500 cc of normal saline yesterday for low blood pressures. She was asymptomatic. Needs pediatric cuff for accurate blood pressures. Medications as below. (2) Atrial fibrillation: Qualifiers: Atrial fibrillation type: persistent (not longstanding) Qualified Code(s): I48.19 - Other persistent atrial fibrillation Code(s): I48.91 - Unspecified atrial fibrillation Status: Chronic Assessment and Plan: Heart rate controlled on amiodarone and metoprolol. Anticoagulated with warfarin. Continue Metoprolol 12.5 mg every 12 hours. Continue amiodarone 200 mg every 12 hours. Continue warfarin 0.5 mg every other day. Carefully monitor INR with recent changes in amiodarone dosing. PT/ INR to be done on Thursday, December 19, 2019 (3) Mitral regurgitation: Qualifiers: Cardiac valve disease etiology: etiology unspecified Qualified Code(s): I34.0 - Nonrheumatic mitral (valve) insufficiency Code(s): I34.0 - Nonrheumatic mitral (valve) insufficiency Status: Acute Assessment and Plan: Moderate severity by 2D echocardiogram a 11/30/2019. Certainly may be contributing to her clinical picture, however, suspect majority of her symptoms are related to persistent atrial fibrillation and recovery from pneumonia. She does not think she would be a good candidate for intervention due to her fraility. She does not desire to have any procedures. Hospice would be appropriate. 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 (6) Chronic anticoagulation: Code(s): Z79.01 - intermediate (current) use of anticoagulants Status: Acute Assessment and Plan: Daily INR. Adjustment likely will need adjustment of amiodarone as above. PT/ INR will be followed by our office. Monitor for bleeding/melena. She is at increased risk for bleeding due to age and frailty . (7) ENOCH (acute kidney injury): Code(s): N17.9 - Acute kidney failure, unspecified Status: Chronic Assessment and Plan: Stable. Additional Plan OK to discharge from cardiac standpoint. She is still wearing nasal cannula oxygen. She will need home O2 eval. Plan discussed with Dr Hurley 1520 12/15/2019 Subjective Date/time seen: 12/15/19 15:10 Interval history: Follow-up for: Heart failure with preserved ejection fraction, atrial fibrillation -persistent, mitral insufficiency, tricuspid regurgitation, pulmonary hypertension, long-term use of anticoagulation, chronic kidney disease Date of service: 12/15/2019 Subjective: No pain anywhere. Shortness of breath with exertional activities about the same . Takes a break when she is tired. Denied lightheadedness or dizziness. Vidal
--- NOTE | 2019-12-15 15:26 | PM.IMPN ---
Progress Note: A&P Assessment and Plan (1) CHF (congestive heart failure): Qualifiers: Heart failure chronicity: acute on chronic Heart failure type: unspecified Qualified Code(s): I50.9 - Heart failure, unspecified Code(s): I50.9 - Heart failure, unspecified Status: Chronic Assessment and Plan: Recent echo 11/30/19 shows EF 55-60% and grade II diastolic dysfunction. [place] [address], 2x greater than at previous admission. CXR shows mild pulmonary edema, small pleural effusions, and cardiomegaly, which is stable upon review of prior CXR from 11/29/19. Cardiology has been consulted and recommendations are appreciated. She received Lasix during her previous stay and then subsequently developed ENOCH. She received a one time dose of 40 mg IV Lasix in the ED but was not continued due to worsened ENOCH. She did not appear to be fluid overloaded, and if anything was a bit dry. Continue to monitor volume status closely. Monitor I&O and daily weights. Patient is on 2 L supplemental O2 her shortness of breath. Home O2 eval to be performed tomorrow. Hopeful discharge tomorrow. (2) Atrial fibrillation: Qualifiers: Atrial fibrillation type: persistent (not longstanding) Qualified Code(s): I48.19 - Other persistent atrial fibrillation Code(s): I48.91 - Unspecified atrial fibrillation Status: Chronic Assessment and Plan: Rate is controlled. Metoprolol decreased to 12.5 mg. Amiodarone decreased from q8h to 200 mg q12h. Continue warfarin. Monitor INR closely with amiodarone adjustments. (3) Hypotension: Code(s): I95.9 - Hypotension, unspecified Status: Acute Assessment and Plan: BP reviewed today and low at 82/56. Blood pressures have been soft. Mostly 80s/50s. 25 mg metoprolol held 8 am due to low BP. Dose decreased to 12.5 mg administered 12/12 pm. Held 12/13 am as BP was low. She was given total 500 cc IV fluid bolus on 12/13. She is asymptomatic with low blood pressures.. Discussed with cardiology and will continue metoprolol with parameters to hold if systolic BP <85. Metoprolol is needed for rate control. BP should be taken with pediatric cuff. (4) ENOCH (acute kidney injury): Code(s): N17.9 - Acute kidney failure, unspecified Status: Chronic Assessment and Plan: Recent admission 11/28-12/07 she developed ENOCH, which was felt to be secondary to Lasix. She had a renal ultrasound which showed a mild right hydronephrosis. At presentation for this admission, creatinine was 1.9 which was higher than it was at prior visit. Improved today to 1.6. At this time will monitor renal function closely. Avoid nephrotoxic agents and renally dose medications. No need to repeat renal US at this time. 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 This was initiated during her last hospital stay. She did not wish to transition to NOAC due to the copay. INR is therapeutic today. Given advanced age and frailty, she is certainly a fall risk and at risk for bleeding. INR stable at 2.4 today Continue to monitor PT/INR daily (6) Mitral regurgitation: Qualifiers: Cardiac valve disease etiology: etiology unspecified Qualified Code(s): I34.0 - Nonrheumatic mitral (valve) insufficiency Code(s): I34.0 - Nonrheumatic mitral (valve) insufficiency Status: Acute Assessment and Plan: Echo performed 11/30/2019 shows moderately severe mitral valve regurgitation. This is been a discussed extensively the patient by several providers. She initially expressed interest in surgical referral but now states that she does not wish to proceed with any invasive intervention given her age. I do not believe that she would be a good dorain
[2019-12-15] MEDS: WARFARIN (*PBKC) 0.5 MG TABLET PO (18:07)
[2019-12-15] MEDS: polyethylene glycoL 3350 17 GM POWD.PACK PO (18:07)
[2019-12-15] MEDS: DOCUSATE SODIUM 100 MG CAPSULE PO (20:30)
[2019-12-16] VITALS (14 sets, daily range): BP systolic 78–85; BP diastolic 50–60; PULSE 81–107; RESP 16–18; TEMP 36.5; O2SAT 90–97
[2019-12-16 06:17] LABS: INR 2.4; Prothrombin Time 25.4 Seconds (11.1-14.7)
[2019-12-16 06:24] LABS: Anion Gap 4 mmol/L (8-16); Blood Urea Nitrogen 46 mg/dL (7-17); Calcium 8.2 mg/dL (8.4-10.2); Carbon Dioxide 34 mmol/L (22-30); Chloride 91 mmol/L (98-107); Estimated CRCL calculation 18 ml/min; Estimated Glomerular Filt Rate 33; Glucose 91 mg/dL (65-105); Sodium 129 mmol/L (137-145)
[2019-12-16] MEDS: polyethylene glycoL 3350 17 GM POWD.PACK PO (08:13)
[2019-12-16] MEDS: AMIODARONE HCL 200 MG TABLET PO (08:13)
[2019-12-16] MEDS: DOCUSATE SODIUM 100 MG CAPSULE PO (08:13)
--- NOTE | 2019-12-16 11:10 | PCPTNOTE ---
Patient declined P.T. at this time. Patient states that she just got back to bed. Patient encouraged to participate. Patient states I don't do that much at home. P.T. will continue to follow per plan of care.
--- NOTE | 2019-12-16 11:24 | PCRCNOTE ---
Home O2 evaluation complete; Pt. does not require home O2. Sally Huddleston notified of the results and green card put on Pt.'s chart.
--- NOTE | 2019-12-16 11:58 | PM.DS ---
DS: Admitting Diagnosis Admitting Diagnosis Admitting Diagnosis: chf/mitral regurg DS: Discharge Diagnosis Discharge Diagnosis (1) CHF (congestive heart failure): Qualifiers: Heart failure chronicity: acute on chronic Heart failure type: unspecified Qualified Code(s): I50.9 - Heart failure, unspecified Code(s): I50.9 - Heart failure, unspecified Status: Chronic Assessment and Plan: Recent echo 11/30/19 showed EF 55-60% and grade II diastolic dysfunction. BNP was [address]50, 2x greater than at previous admission. CXR showed mild pulmonary edema, small pleural effusions, and cardiomegaly, which was stable upon review of prior CXR from 11/29/19. She was seen in consultation by cardiology. She received a one time dose of 40 mg IV Lasix in the ED but was not continued due to worsened ENOCH. She did not appear to be fluid overloaded.. She was recommended to monitor daily weights at home. Home O2 eval was performed and she did not require home oxygen. (2) Atrial fibrillation: Qualifiers: Atrial fibrillation type: persistent (not longstanding) Qualified Code(s): I48.19 - Other persistent atrial fibrillation Code(s): I48.91 - Unspecified atrial fibrillation Status: Chronic Assessment and Plan: Rate was controlled. Metoprolol was decreased to 12.5 mg due to hypotension. Amiodarone decreased from 200 mg q8h to 200 mg q12h per cardiology recommendations. Continue 0.5 mg warfarin q48h. INR was monitored closely with amiodarone adjustments and she will repeat an INR in 3 days as an outpatient. She has cardiology follow-up on 12/20/2019. (3) Hypotension: Code(s): I95.9 - Hypotension, unspecified Status: Acute Assessment and Plan: Blood pressures were soft, mostly 80s/50s. she remained asymptomatic with low blood pressures. Her metoprolol was briefly held due to hypotension and then dose was adjusted. She was decreased to 12.5 mg b.i.d. and her blood pressure tolerated this dose. Blood pressure should be monitored by home health as an outpatient (4) ENOCH (acute kidney injury): Code(s): N17.9 - Acute kidney failure, unspecified Status: Chronic Assessment and Plan: At recent admission 11/28-12/07 she developed ENOCH, which was felt to be secondary to Lasix. She had a renal ultrasound which showed a mild right hydronephrosis. At presentation for this admission, creatinine was 1.9 which was higher than it was at prior visit. Creatinine improved to 1.5. This seems to be her new baseline. Repeat BMP on 12/19/2019. (5) Chronic anticoagulation: Code(s): Z79.01 - extermination inspector (current) use of anticoagulants Status: Acute Assessment and Plan: She is on warfarin for stroke prophylaxis secondary to atrial fibrillation. This was initiated during her last hospital stay. She did not wish to transition to NOAC due to the copay. Given advanced age and frailty, she is certainly a fall risk and at risk for bleeding. INR remained stable. Repeat INR on 12/18. Cardiology will follow INR. (6) Mitral regurgitation: Qualifiers: Cardiac valve disease etiology: etiology unspecified Qualified Code(s): I34.0 - Nonrheumatic mitral (valve) insufficiency Code(s): I34.0 - Nonrheumatic mitral (valve) insufficiency Status: Acute Assessment and Plan: Echo performed 11/30/2019 showed moderately severe mitral valve regurgitation. This was discussed extensively with the patient by several providers. She initially expressed interest in surgical referral but then decided she did not wish to proceed with any invasive intervention given her age. I do not believe that she would be a good surgical candidate as she is quite frail. (7) Generalized weakness: Code(s): R53.1 - Weakness Status: Acute Assessment and Plan: Patient reports feeling chronically weak and fatigued. This is likely secondary to her atrial f
--- NOTE | 2019-12-16 13:30 | PCPTNOTE ---
Patient refused treatment this session. Patient states I am not up to it at this time. I am eating. Patient not presently eating and only has a soda on bedside table.
== END 2019-12-16 17:40 | disposition home health service (06) | DRG 292 ==
LOC: ANHED 13:06 → ANH3MEDSUR 13:56
PROVIDERS: Emergency Medicine; Nurse Practitioner; Nurse Practitioner Adult Health; Admitting Provider Internal Medicine; Emergency Provider Emergency Medicine; Visit Provider Physician Assistant
DX: I11.0 Hypertensive heart disease with heart failure (principal); N17.9 Acute kidney failure, unspecified; E87.1 Hypo-osmolality and hyponatremia; I50.33 Acute on chronic diastolic (congestive) heart failure; I48.91 Unspecified atrial fibrillation; I95.9 Hypotension, unspecified; I34.0 Nonrheumatic mitral (valve) insufficiency; Z79.01 Long term (current) use of anticoagulants; Z20.828 Contact with and (suspected) exposure to other viral communicable diseases; R53.1 Weakness
CPT/HCPCS: 36415; 71046; 80048; 80053; 82570; 82728; 83735; 83880; 84300; 84484; 85025; 85027; 85610; 86140; 87635; 93005; 94618; 96374; 97110; 97161; 97165; 97530; 97535; 99285; A9270; C9803; J1940; J7040; J7050; U0003

== ENCOUNTER 2020-01-06 17:16 | Inpatient (IN) | payer MEDICARE, SELFPAY ==
--- NOTE | ~2020-01-06 | US_ITS ---
EXAMINATION: US renal BI DATE: 01/07/2020 19:24 INDICATION: Chronic renal failure. TECHNIQUE: Multiple ultrasound grayscale images of the kidneys were obtained. COMPARISON: Ultrasound 12/05/2019 FINDINGS: The right kidney measures 9.0 x 4.1 x 3.6 cm. The left kidney measures 9.8 x 5.5 x 5.1 cm. The kidney s demonstrate normal parenchymal echogenicity. There is mild right hydronephrosis. The bladder is nor mal. There are bilateral pleural effusions. IMPRESSION: 1. Stable mild right hydronephrosis. 2. Bilateral pleural effusions. Reviewed, dictated and finalized at location A.
--- NOTE | ~2020-01-06 | XR_ITS ---
XR chest 2V DATE: 01/06/2020 18:29 INDICATION: Shortness of breath for 2 months. Bilateral leg swelling. History of atrial fibrillation and congestive heart failure TECHNIQUE: AP and lateral views COMPARISON: 12/11/2019 AP and lateral views FINDINGS: There is cardiomegaly. There is aortic calcification. There are mild pleural effusions. There is mild infiltrate or atelectasis at the lung bases. Diffuse osteopenia. Bilateral rotator cuff atrophy. Prominent dextroscoliosis of the thoracic spine. There is moderately prominent loss of height and anterior wedging at approximately T12. There is degenerative spurring of the thoracic spine. IMPRESSION: Cardiomegaly Mild basilar infiltrate and/atelectasis and small pleural effusions Reviewed, dictated and finalized at location A.
[2020-01-06 17:22] VITALS: BP 113/70; PULSE 110; RESP 20; TEMP 36.8; O2SAT 93
--- NOTE | 2020-01-06 17:22 | ECG_ITS ---
Measurements Intervals [place] Rate: 105 P: MO: 0 QRS: -89 QRSD: 165 T: -67 QT: 397 QTc: 525 Interpretive Statements ATRIAL FIBRILLATION WITH RAPID VENTRICULAR RESPONSE RIGHT BUNDLE BRANCH BLOCK LEFT ANTERIOR FASCICULAR BLOCK BASELINE ARTIFACT- I, II, III, AVR, AVL, AVF, V1, V4-V6 ABNORMAL ECG Electronically Signed On 01-06-2020 17:40:46 CDT by Itz English D.O.
[2020-01-06 17:34] LABS: Basophils Percent Auto 0.3 % (0.2-1.2); Eosinophils Percent Auto 0.3 % (0-4.4); Hematocrit 40.4 % (37.0-47.0); Immature Granulocyte Absolute 0.02 K/mm3 (0.00-0.031); Immature Granulocyte Percent A 0.3 % (0-0.5); Lymphocytes Percent Auto 19.4 % (18.3-44.2); Mean Corpuscular HGB Conc 32.2 g/dl (32-36); Mean Corpuscular Volume 96.4 fl (80-100); Mean Platelet Volume 10.4 fl (7.4-10.4); Monocytes Absolute Auto 0.6 K/mm3 (0.1-0.6); Monocytes Percent Auto 10.4 % (2.6-8.5); Neutrophils Absolute Auto 4.3 K/mm3 (1.3-6.7); Neutrophils Percent Auto 69.3 % (45.5-73.1); Platelet Count Result 219 k/mm3 (150-375); Red Blood Count 4.19 M/mm3 (4.2-5.4); Red Cell Distribution Width 15.5 % (11.5-14.5); White Blood Count 6.2 K/mm3 (4.5-10.0)
[2020-01-06 17:46] LABS: Anion Gap 7 mmol/L (8-16); Blood Urea Nitrogen 42 mg/dL (7-17); Calcium 8.7 mg/dL (8.4-10.2); Carbon Dioxide 29 mmol/L (22-30); Chloride 99 mmol/L (98-107); Estimated CRCL calculation 16 ml/min; Estimated Glomerular Filt Rate 27; Glucose 128 mg/dL (65-105); Potassium 4.3 mmol/L (3.4-5.0); Sodium 135 mmol/L (137-145)
--- NOTE | 2020-01-06 18:37 | ED.SOB ---
HPI - SOB/Dyspnea General Chief Complaint: Shortness of Breath/Dyspnea Stated Complaint: balance problems and shortness of breath x2 months Time Seen by Provider: 01/06/20 18:32 Source: patient and EMS History of Present Illness HPI Narrative: 85 years old white female presents with increased swelling of the lower extremities, and shortness of breath on exertion. For the last few days. Patient lives alone. Patient denies any fever, chills, nausea, vomiting, diarrhea or chest pain. Related Data Allergies Allergy/AdvReac Type Severity Reaction Status Date / Time diclofenac Allergy Mild EYE Verified 06/30/19 09:41 DIFFICULT diflunisal Allergy Unknown unknown Verified 06/30/19 09:41 hydromorphone Allergy Unknown unknown Verified 06/30/19 09:41 TAPE Allergy Mild BLISTERS Uncoded 04/22/19 10:12 Review of Systems Review of Systems: Narrative: CONSTITUTIONAL: Denies fever, chills, or sweats. EYES: Denies visual changes, redness, or discharge. ENT: Denies rhinorrhea, congestion, sore throat, or otalgia. CARDIOVASCULAR: Denies chest pain, palpitations, or edema. RESPIRATORY: Denies cough or dyspnea. GASTROINTESTINAL: Denies abdominal pain, nausea, vomiting, or diarrhea. GENITOURINARY: Denies dysuria or hematuria. SKIN: Denies rash or itching. MUSCULOSKELETAL: Denies back pain, joint pain, or myalgia. NEUROLOGIC: Denies headache, numbness, or weakness. PSYCHIATRIC: Denies anxiety or depression. COUNTS INCLUDE 234 BEDS AT THE [facility] Past Medical History Medical History Arthritis Atrial fibrillation on anticoagulation. Chronic back pain COPD (chronic obstructive pulmonary disease) Dementia Hypertension Mitral regurgitation Moderately severe mitral valve regurgitation. Moderate tricuspid valve regurgitation. Osteoporosis Tricuspid regurgitation Moderate tricuspid valve regurgitation. Surgical History Surgical History History of knee replacement (~2005) Family History Family History Grandparent Carcinoma of colon Family history of heart disease in male family member before age 55 Father Family history of emphysema Family history of lung disease Patient's father is Family history of chronic obstructive pulmonary disease Mother Family history of emphysema Family history of hypercholesterolemia Hypertension Patient's mother is Cerebrovascular accident Sibling Family history of lung cancer Family history of malignant neoplasm of breast in first degree relative Family history of heart disease in male family member before age 55 Patient's sister is Patient's brother is Cerebrovascular accident Family history of chronic obstructive pulmonary disease Other Family history of malignant neoplasm of male breast Social History Social History Social History: the patient has been for a long time she lives home alone. She gave to 2 children but her 1 son . The son that is Living is the durable power research attorney for healthcare. The patient desires to be a full code. She tells me she is a lifelong nonsmoker no alcohol no illicit drugs no marijuana. 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 She tells me that she has not had a primary care doctor. Smoking status: Never smoker Second hand tobacco smoke exposure: No Alcohol intake: former Substance use: never Substance use type: does not use Gender identity (if verbalized by the patient): Female Spiritual care concerns: No Exam Narrative: Exam Narrative: General appearance: Well-developed, well-nourished Skin: Normal color, 4+ edema lower extremity bilaterally up to the knees Head: Normocephalic, nontraumatic Eyes: Clear conjunctiva ENT: Oropharynx normal, ears normal, nose normal Neck: Supple
[2020-01-06 19:36] LABS: Alanine Aminotransferase 24 U/L (4-35); Albumin Level 3.2 g/dL (3.5-5.1); Alkaline Phosphatase 86 U/L (38-126); Aspartate Amino Transferase 27 U/L (14-36); Bilirubin,Total 0.6 mg/dL (0.2-1.3)
[2020-01-06 19:45] LABS: NT Pro B Type Natriuretic Pept 12600 PG/ML (5-100)
[2020-01-06 19:58] LABS: INR 1.5; Prothrombin Time 17.3 Seconds (11.1-14.7)
[2020-01-06 19:59] LABS: Partial Thromboplastin Time 31.2 SECONDS (22.3-36.8)
[2020-01-06] MEDS: FUROSEMIDE INJ 40 MG/4 ML VIAL 20 MG IV PUSH (20:09)
[2020-01-06 20:13] VITALS: BP 88/55; PULSE 78; RESP 20
--- NOTE | 2020-01-06 20:13 | PC.NURSE ---
lasix held due to low bp
[2020-01-06 20:50] VITALS: BP 95/50; PULSE 92; RESP 18; TEMP 36.5; O2SAT 91; BMI 25.3
--- NOTE | 2020-01-06 22:24 | ADMGEN ---
This patient, Brandan Hoffman, was admitted to [facility] Surg Room 325-01. Patient/family oriented to hospital policies and general routines including ID bracelet, bed and alarms, visiting hours, pain management, procedures, bathroom and other care routines, personal items, smoking policy, room service/diet, and visiting hours. Valuables list has been completed. Information on how to activate the Rapid Response Team has been discussed. Patient/Family are encouraged to report perceived risks to care and to ask questions if they do not understand what they are told or what they should do.
[2020-01-06 22:54] LABS: Troponin I 0.016 ng/mL (0.000-0.034)
[2020-01-07] VITALS (7 sets, daily range): BP systolic 89–118; BP diastolic 54–88; PULSE 54–101; RESP 16–20; TEMP 36–36.4; O2SAT 91–95
--- NOTE | 2020-01-07 00:23 | PM.IMHP ---
H&P: HPI History of Present Illness Date/Time: 01/07/20 00:23 Chief complaint: CHF Narrative: Brandan Hoffman is a 85 year old female who has a history of congestive heart failure. The patient lives at home and receives home health. Her son has also been staying with her. The patient was admitted here on 12/11/2019. Admitted on 11/29/2019. Patient was checked for covid 19 on both dates and was found to be negative. The patient was found to have moderately severe mitral regurgitation and moderate tricuspid regurgitation. Long-term prognosis is not good because of low blood pressure frailty and mitral regurgitation extent. It was discussed in length that she could not be treated here. There was some talk about mitral valve clip but the patient is not a surgical candidate. I have had multiple long discussions about the patient and her code status. It I continued to talk about hospice. The patient continues to state that she has a lot more life to live. I explained that her quality of life is not good and she has been in the hospital every 2 weeks. The patient cannot care for herself anymore. She has increased edema to lower extremities. Today her color is a bluish pale color. The business continuity management director has his had long discussions with the patient as well. He wore when I spoke to ER doctor I explained the situation and that I was aware of the patient's condition. Increased at 1 time but then across surgery have acute kidney injury. Does have grade 2 diastolic dysfunction. Her legs have been edematous. The patient cannot perform activities of daily living. Her EF is approximately 55-60%. She also has a history of atrial fibrillation. Her amiodarone was decreased last admission due to hypotension. I had suggested to the ER doctor that they consult Cardiology. Patient continues to be on chronic anticoagulation for her atrial fibrillation. Patient's creatinine is 1.8 her baseline is anywhere from 1.5 to 1.9. This is her 3rd COVID test since November 28. The 1st 2 have been negative. Her BMP today was 12,600. I discussed with the ER physician that this patient has severe regurgitation and she wanted to go to [place] last time. I suggested that the patient go to [place] today. Patient is in AFib today with her heart rate of 104 to 105. She has 4+ pitting edema to her lower extremities. Date of service 01/07/2020 Review of Systems Review of Systems: All systems reviewed & are unremarkable except as noted in HPI and below Constitutional: Constitutional: Reports as per HPI and Reports no additional constitutional complaints Eyes: Eyes: Reports as per HPI and Reports no additional eye complaints ENT: Reports system reviewed and no additional complaints, except as documented and Reports Normal hearing present Cardiovascular: Cardiovascular: Reports no additional cardiovascular complaints Respiratory: Respiratory: Reports no additional respiratory complaints and Reports no additional respiratory complaints Gastrointestinal: Gastrointestinal: Reports as per HPI and Reports no additional gastrointestinal complaints Musculoskeletal: Musculoskeletal: Reports no additional musculoskeletal complaints Integumentary/Breasts: Skin/Breast: Reports system reviewed and no additional complaints, except as docu and Reports as per HPI Neurologic: Reports system reviewed and no additional complaints, except as documented, Reports as per HPI and Reports Normal hearing present Psychiatric: Psychiatric: Reports no additional psychiatric complaints and Reports as per HPI Endocrine: Endocrine: Reports no additional endocrine complaints Hematologic/Lymphatic: Hematologic/Lymphatic: Reports no additional hematologic/lymphatic complaints Allergic/Immunologic: Allergic/Immunologic: Reports no additional allergic/immunologic complaints ON LICENSE OF [facility] Past Medical History Medical History (Updated 01/07/20 @ 00:38 by Cathy Smith NP) Arthritis Atrial fibrillation on a
[2020-01-07 02:21] LABS: Troponin I 0.018 ng/mL (0.000-0.034)
[2020-01-07 07:31] LABS: INR 1.4; Prothrombin Time 16.9 Seconds (11.1-14.7)
[2020-01-07] MEDS: FUROSEMIDE INJ 40 MG/4 ML VIAL 20 MG IV PUSH (10:11)
[2020-01-07] MEDS: POTASSIUM CHLORIDE 10 MEQ TABLET.ER PO (10:11)
[2020-01-07 13:39] LABS: SARS-CoV-2 RNA PCR Negative
--- NOTE | 2020-01-07 13:39 | PC.NURSE ---
I received multiple phone calls from the filing machine operator that Brandan is calling down to them instead of pushing her call light for patient requests. The patient has only called on the call light once. I have also received a phone call to the transfer and pumphouse operator that the patient has called him as well complaining that no one is helping her. The patient has been checked on after each phone call that has been made and instructed to use the call light.
--- NOTE | 2020-01-07 13:42 | PC.NURSE ---
Patient placed calls to nurse's station multiple times, stating that she wants to talk to a nurse. Patient is screaming and slamming down belongings upon entering the room. When asked if she wanted to talk, patient began yelling that her leg swelling was not being addressed and that no one had looked at her legs. Patient was given medication this morning and assessed. Doctor was notified that patient is dissatisfied with her care.
--- NOTE | 2020-01-07 14:10 | PC.NURSE ---
Brandan called using the call light to the nurses station. I asked her what we could do to help her and she stated that she has been calling all morning and no one is answering her calls. As I was answering this call a tech had just left her room.
--- NOTE | 2020-01-07 14:39 | PCPTNOTE ---
PT/OT orders received....per NURSING, patient is not appropriate, yelling and screaming at nursing, other inappropriate behavior,,will be happen to see this patient is circumstances improve
--- NOTE | 2020-01-07 15:02 | PM.IMPN ---
Progress Note: A&P Assessment and Plan (1) CHF (congestive heart failure): Qualifiers: Heart failure chronicity: acute on chronic Heart failure type: unspecified Qualified Code(s): I50.9 - Heart failure, unspecified Code(s): I50.9 - Heart failure, unspecified Status: Chronic Assessment and Plan: The patient is only on 20 mg of Lasix daily p.o. however the patient has been having worsening renal failure since her Lasix was increased last time. We will continue with IV Lasix and consult Nephrology. The patient stated that she would still go to [place] to have valve replace but she is not a surgical candidate. I did consult Cardiology. 01/07/20 15:02 patient 86-year-old female with history of moderately severe mitral regurgitation and moderate tricuspid regurgitation patient presented with complaint of shortness of breath extremity edema and difficulty with ambulation patient is being gently diuresed his patient has chronic kidney disease, patient had been seen [facility] and is not a candidate for surgical repair of her regurgitating valves due to her age and fraililty. patient states is feeling little better compared to when she arrived, her COVID test is negative this is the 3rd time. will have a PT OT evaluate the patient patient will benefit with physical therapy as tolerated (2) Atrial fibrillation: Qualifiers: Atrial fibrillation type: persistent (not longstanding) Qualified Code(s): I48.19 - Other persistent atrial fibrillation Code(s): I48.91 - Unspecified atrial fibrillation Status: Chronic Assessment and Plan: Continue has been on amiodarone and Cardizem. Check her thyroid levels.. Continue Coumadin and check her PT INR daily. Patient's INR is 1.5 today. I am not sure if the patient is compliant with her medications at home. Will check daily PT INR. I did increase her Coumadin to 1 mg daily. (3) Chronic anticoagulation: Code(s): Z79.01 - shelter (current) use of anticoagulants Status: Acute Assessment and Plan: Patient's INR is 1.5 today. Will check it daily. increasing her Coumadin. There is an interaction between amiodarone and Coumadin. However the amiodarone is on hold at this time. (4) Suspected COVID-19 virus infection: Code(s): Z20.828 - Contact with and (suspected) exposure to other viral communicable diseases Status: Acute Assessment and Plan: Patient has been checked 3 times in 1 month for covid 19. She was found to be negative x2. 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 The patient is a poor candidate for surgery. There is nothing that we can help her with here. (6) Acute diastolic CHF (congestive heart failure): Code(s): I50.31 - Acute diastolic (congestive) heart failure Status: Chronic Assessment and Plan: Referred to cardiology she had medication adjustments last admission and are blood pressure is low again. I will hold her amiodarone and metoprolol for tonight. (7) Dementia: Code(s): F03.90 - Unspecified dementia without behavioral disturbance Status: Chronic Assessment and Plan: Patient is forgetful. But she is not on any medication for dementia. (8) Hypertension: Qualifiers: Hypertension type: essential hypertension Qualified Code(s): I10 - Essential (primary) hypertension Code(s): I10 - Essential (primary) hypertension Status: Chronic Assessment and Plan: Patient's blood pressure is low. She had medication adjustment her last admission. Since she is getting IV Lasix will have to monitor her blood pressure closely. She has been on amiodarone and metoprolol. I
[2020-01-07] MEDS: WARFARIN (*PBKC) 1 MG TABLET PO (17:32)
[2020-01-08] VITALS (9 sets, daily range): BP systolic 90–99; BP diastolic 58–66; PULSE 86–119; RESP 18–21; TEMP 36.3–36.7; O2SAT 91–95
[2020-01-08 07:37] LABS: Hematocrit 35.4 % (37.0-47.0); Hemoglobin 11.5 g/dL (12.0-15.0); Mean Corpuscular HGB Conc 32.5 g/dl (32-36); Mean Corpuscular Hemoglobin 30.7 pg (26-34); Mean Corpuscular Volume 94.4 fl (80-100); Mean Platelet Volume 9.8 fl (7.4-10.4); Platelet Count Result 191 k/mm3 (150-375); Red Blood Count 3.75 M/mm3 (4.2-5.4); Red Cell Distribution Width 15.3 % (11.5-14.5); White Blood Count 4.4 K/mm3 (4.5-10.0)
[2020-01-08 07:49] LABS: INR 1.4; Prothrombin Time 16.5 Seconds (11.1-14.7)
[2020-01-08 07:50] LABS: Anion Gap 2 mmol/L (8-16); Blood Urea Nitrogen 37 mg/dL (7-17); Calcium 8.3 mg/dL (8.4-10.2); Carbon Dioxide 34 mmol/L (22-30); Chloride 99 mmol/L (98-107); Estimated CRCL calculation 17 ml/min; Estimated Glomerular Filt Rate 29; Glucose 83 mg/dL (65-105); Magnesium 1.9 mg/dL (1.6-2.3); Phosphorus 3.2 mg/dL (2.5-4.5); Sodium 135 mmol/L (137-145)
--- NOTE | 2020-01-08 08:15 | PM.CNCAR ---
Assessment and Plan Additional Plan this is an 85-year-old lady with shortness of breath which is a chronic problem it is related to her mitral valve regurgitation and atrial fibrillation. She is medically optimized and not volume overloaded from what I can see. The decision to be made on the part of the patient and her family is status to whether or not they wish to be considered a candidate for mitral valve intervention such as a MitraClip procedure I made it clear to the patient that this type of care is not available here at [facility] and she may or may not be a candidate for this. She would need to be seen by the valve Clinic [facility] for further evaluation to consider this option. I do not believe there is any further treatment or evaluation to be performed here at [facility] her valvular heart disease and atrial fib have been well evaluated over the course of the last month or so since during this series of hospitalizations I do not perceive there to be anything new going on today. Pravin Nur MD [facility] History of Present Illness History of Present Illness Consult date/time: 01/07/2020 Consult reason: shortness of breath Reason For Visit: CHF Narrative: this is a 85-year-old woman who is well known to the physicians in our practice being seen today as the request of the hospitalist because of dyspnea. The patient has been in the hospital multiple times in the last month or so and her history will not be totally reiterated in this note. In summary she has a history of chronic atrial fibrillation with significant mitral valve regurgitation and massive atrial dilatation. Attempts to treat her medically have been successful in resolving volume overload but not her symptoms of shortness of breath. She is brought to the hospital approximately every 1-2 weeks by her family / son because of problematic dyspnea and once again she is brought in for that reason yesterday. The patient upon entering the room appears to be comfortable she is seated in bed watching television and is not in any respiratory distress. She states that with sitting and at rest she is not dyspneic at all but she does become short of breath with modest activity. She does not perceive this to be much different than it has been for the last 3-4 weeks. The patient has relatively severe mitral valve regurgitation as noted on echocardiogram as was dictated previously by my partner, Dr. Olson during a previous admission/consultation. Several conversations were had with her regarding the possibility of aggressive mitral valve treatment. She appears to be far too frail to be a reasonable candidate for open mitral valve surgical repair. Concept of consultation at a tertiary care center for mitral valve clip was discussed on several occasions. At time she has expressed some interest in this and at times not. The patient and the family were told that we do not provide this service at [facility] but that we would be happy to refer her to the valve Clinic at [facility] if they wished to consider this type of care. She does not have any other specific cardiovascular complaints today. She remains in chronic atrial fib her heart rate is well controlled. She is anticoagulated with warfarin. Review of Systems Constitutional: Constitutional: Reports fatigue and Reports lethargy Eyes: Eyes: Reports no additional eye complaints ENT: Reports system reviewed and no additional complaints, except as documented Cardiovascular: Cardiovascular: Reports as per HPI Respiratory: Respiratory: Reports dyspnea Gastrointestinal: Gastrointestinal: Reports no additional gastrointestinal complaints Musculoskeletal: Musculoskeletal: Reports arthralgias Neurologic: Reports system reviewed and no additional complaints, except as documented Endocrine: Endocrine: Reports no additional endocrine complaints Hematologic/Lymphatic: Hematologic/Lymphatic: Reports no isaura
[2020-01-08] MEDS: FUROSEMIDE INJ 40 MG/4 ML VIAL 20 MG IV PUSH (09:24)
[2020-01-08] MEDS: POTASSIUM CHLORIDE 10 MEQ TABLET.ER PO (09:24)
--- NOTE | 2020-01-08 14:29 | PC.NURSE ---
I received a phone call from Barbara the sawmill moulder operator of the hospital who states the patient has called her over 14 times today. The patient will call and state that no one is helping her in her room. I have witnessed multiple staff members going in her room through out the day to assist her. I have removed the phone from the patient's room. I have explained to the patient that if she would like to call her son or anyone else, that staff will go in and assist the patient with making those phone calls. As I walked out the patient then began banging her call light against her table. The patient stated that her son will bitch me out and let me have it when he comes in. Myself and another nurse pushed the table up by the head of the bed. Where the patient can still reach her water off of it. I gave the patient her call light and reminded her how to use it if she needs anymore assistance.
--- NOTE | 2020-01-08 14:29 | PC.NURSE ---
Patient complains that her feet are more swollen than when she came in to hospital. Patient's feet are the same size and level of swelling as this morning per my assessment.
--- NOTE | 2020-01-08 14:33 | PM.IMPN ---
Progress Note: A&P Assessment and Plan (1) CHF (congestive heart failure): Qualifiers: Heart failure chronicity: acute on chronic Heart failure type: unspecified Qualified Code(s): I50.9 - Heart failure, unspecified Code(s): I50.9 - Heart failure, unspecified Status: Chronic Assessment and Plan: The patient is only on 20 mg of Lasix daily p.o. however the patient has been having worsening renal failure since her Lasix was increased last time. We will continue with IV Lasix and consult Nephrology. The patient stated that she would still go to [place] to have valve replace but she is not a surgical candidate. I did consult Cardiology. 01/08/20 14:33 patient 86-year-old female with history of moderately severe mitral regurgitation and moderate tricuspid regurgitation patient presented with complaint of shortness of breath extremity edema and difficulty with ambulation patient is being gently diuresed his patient has chronic kidney disease, patient had been seen [facility] and is not a candidate for surgical repair of her regurgitating valves due to her age and fraililty. today again I spoke with the patient that we are unable to treat unless is able to have a surgical correction of her mitral and tricuspid vlaves, patient states see may reconsider her option for the surgery and will discuss with her son, patient is waiting [facility] the [facility] a [facility] as her son is unable to take care of her. patient states is feeling little better compared to when she arrived, her COVID test is negative this is the 3rd time. will have a PT OT evaluate the patient patient will benefit with physical therapy as tolerated (2) Atrial fibrillation: Qualifiers: Atrial fibrillation type: persistent (not longstanding) Qualified Code(s): I48.19 - Other persistent atrial fibrillation Code(s): I48.91 - Unspecified atrial fibrillation Status: Chronic Assessment and Plan: Continue has been on amiodarone and Cardizem. Check her thyroid levels.. Continue Coumadin and check her PT INR daily. Patient's INR is 1.5 today. I am not sure if the patient is compliant with her medications at home. Will check daily PT INR. I did increase her Coumadin to 1 mg daily. (3) Chronic anticoagulation: Code(s): Z79.01 - intermediate designer (current) use of anticoagulants Status: Acute Assessment and Plan: Patient's INR is 1.5 today. Will check it daily. increasing her Coumadin. There is an interaction between amiodarone and Coumadin. However the amiodarone is on hold at this time. (4) Suspected COVID-19 virus infection: Code(s): Z20.828 - Contact with and (suspected) exposure to other viral communicable diseases Status: Acute Assessment and Plan: Patient has been checked 3 times in 1 month for covid 19. She was found to be negative x2. 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 The patient is a poor candidate for surgery. There is nothing that we can help her with here. (6) Acute diastolic CHF (congestive heart failure): Code(s): I50.31 - Acute diastolic (congestive) heart failure Status: Chronic Assessment and Plan: Referred to cardiology she had medication adjustments last admission and are blood pressure is low again. I will hold her amiodarone and metoprolol for tonight. (7) Dementia: Code(s): F03.90 - Unspecified dementia without behavioral disturbance Status: Chronic Assessment and Plan: Patient is forgetful. But she is not on any medication for dementia. (8) Hypertension: Qualifiers: Hypertension type: essential hypertension Qualified Code(s): I10 - Essential (pita
--- NOTE | 2020-01-08 14:38 | PC.NURSE ---
Patient states that she would like to talk to her son on the phone. I called her son, Logan, and he stated that he did not wish to speak to her at this time and that he would come to the floor to see her this evening.
[2020-01-08] MEDS: WARFARIN (*PBKC) 1 MG TABLET PO (17:19)
[2020-01-08 18:08] LABS: Free T4 Free Thyroxine Reflex 1.71 ng/dL (0.78-2.19)
[2020-01-08 18:48] LABS: Total Triiodothyronine (T3) 0.49 NG/ML (0.97-1.69)
[2020-01-09] VITALS (9 sets, daily range): BP systolic 91–102; BP diastolic 40–55; PULSE 53–117; RESP 18–20; TEMP 36.6–36.8; O2SAT 91–93
[2020-01-09 06:46] LABS: Hematocrit 38.6 % (37.0-47.0); Hemoglobin 12.7 g/dL (12.0-15.0); Mean Corpuscular HGB Conc 32.9 g/dl (32-36); Mean Corpuscular Hemoglobin 31.1 pg (26-34); Mean Corpuscular Volume 94.6 fl (80-100); Mean Platelet Volume 9.6 fl (7.4-10.4); Platelet Count Result 214 k/mm3 (150-375); Red Blood Count 4.08 M/mm3 (4.2-5.4); Red Cell Distribution Width 15.2 % (11.5-14.5); White Blood Count 4.9 K/mm3 (4.5-10.0)
[2020-01-09 06:57] LABS: Anion Gap 4 mmol/L (8-16); Blood Urea Nitrogen 36 mg/dL (7-17); Calcium 8.4 mg/dL (8.4-10.2); Carbon Dioxide 34 mmol/L (22-30); Chloride 98 mmol/L (98-107); Estimated CRCL calculation 17 ml/min; Estimated Glomerular Filt Rate 29; Glucose 107 mg/dL (65-105); Potassium 4.1 mmol/L (3.4-5.0); Sodium 136 mmol/L (137-145)
[2020-01-09 07:03] LABS: INR 1.4
[2020-01-09] MEDS: FUROSEMIDE INJ 40 MG/4 ML VIAL 20 MG IV PUSH (09:57)
[2020-01-09] MEDS: POTASSIUM CHLORIDE 10 MEQ TABLET.ER PO (09:57)
--- NOTE | 2020-01-09 13:41 | PM.PNCARD ---
Progress Note: A&P Additional Plan as stated in my note there is really no additional treatment or evaluation we can offer this lady here regarding her dyspnea since it is due to a relatively severe mitral valve regurgitation. She is not in a state of volume overload or decompensated heart failure. I will as she is requesting facilitate referral to the valve Clinic at [place] to see if she is or is not a candidate for a mitral valve intervention. Pravin Nur MD [facility] Subjective Date/time seen: Date of service:01/09/20 13:41 Interval history: Follow-up visit in this 85-year-old lady with significant frailty, chronic atrial fibrillation and chronic dyspnea because of mitral valve regurgitation. Patient resting comfortably reading the newspaper when I entered the room to see her. She states she would like to be discharged since her dyspnea is really not any worse than it has been for the last several weeks and she understands that her mitral valve regurgitation cannot be effectively treated here at [facility]. She would like me to facilitate making a referral to the valve Clinic at [place] I will see to it that our office reaches out to them to make this lady an outpatient appointment. She may or may not be a candidate for MitraClip Exam Const: General: comfortable and no acute distress Other: very frail elderly lady comfortable cooperative in no distress of any kind HENMT: Mouth: Yes dry mucous membranes Eyes: Sclera: sclerae normal Pupils: Equal, round and reactive pupils present Neck: Neck: supple and no JVD Thyroid: thyroid normal Resp: Effort & Inspection: normal respiratory effort Other: breath sounds essentially clear in both lung donato Cardio: Rhythm: abnormal rhythm irregularly irregular Heart sounds: Murmur heart sound present systolic holo, II/ and at the apex GI: Auscultation: normal bowel sounds Skin: General skin exam: normal color Neuro: Cognition (Neuro): normal cognition Extrem: Other: no edema good distal perfusion Objective Data Vital Signs Vital Signs: Vital Signs - 24 hr 01/08/20 14:00 01/08/20 16:00 01/08/20 20:00 Temperature 36.7 C Pulse Rate 119 H 102 H 106 H Respiratory Rate 21 H 20 Blood Pressure 90/62 L Pulse Oximetry 95 91 01/08/20 22:00 01/09/20 00:00 01/09/20 04:00 Temperature 36.6 C Pulse Rate 106 H 87 98 Respiratory Rate 20 Blood Pressure 92/58 L Pulse Oximetry 91 01/09/20 06:00 01/09/20 08:00 Temperature 36.6 C Pulse Rate 85 92 Respiratory Rate 20 Blood Pressure 93/55 L Pulse Oximetry 93 Intake/Output Intake/Output: Intake & Output 01/06/20 01/07/20 01/08/20 01/09/20 23:59 23:59 23:59 23:59 Intake Total 1700 1460 350 Output Total 1200 1100 100 Balance 500 360 250 Meds/Results Medications: Active Medications Generic Name Dose Route Start Last Admin Trade Name Freq PRN Reason Stop Dose Admin Alendronate Sodium 70 mg 01/13/20 06:30 Fosamax PO WEEKLY@0630 [facility] Furosemide 20 mg 01/07/20 09:00 01/09/20 09:57 Lasix Inj IV PUSH 20 mg DAILY HARRISON Administration Potassium Chloride 10 meq 01/07/20 09:00 01/09/20 09:57 Kcl Tablet PO 10 meq DAILY HARRISON Administration Tramadol HCl 50 mg 01/07/20 00:34 Ultram PO Q6H PRN Pain 4-6 Warfarin Sodium 1 mg 01/07/20 17:00 01/08/20 17:19 Coumadin PO 1 mg DAILY@1700 HARRISON Administration Radiology Results: ITS Impressions Chest X-Ray 01/06/20 18:32 IMPRESSION: Cardiomegaly Mild basilar infiltrate and/atelectasis and small pleural effusions Renal Ultrasound 01/07/20 19:28 IMPRESSION: 1. Stable mild right hydronephrosis. 2. Bilateral pleural effusions. Labs Labs: Laboratory Results - last 24 hr 01/08/20 01/08/20 01/09/20 07:22 07:22 06:36 WBC RBC Hgb Hct MCV MCH MCHC RDW Plt Count MPV PT 17.0 H INR 1.4 Sodium Potassium
--- NOTE | 2020-01-09 17:45 | PM.IMPN ---
Progress Note: A&P Assessment and Plan (1) CHF (congestive heart failure): Qualifiers: Heart failure chronicity: acute on chronic Heart failure type: unspecified Qualified Code(s): I50.9 - Heart failure, unspecified Code(s): I50.9 - Heart failure, unspecified Status: Chronic Assessment and Plan: The patient is only on 20 mg of Lasix daily p.o. however the patient has been having worsening renal failure since her Lasix was increased last time. We will continue with IV Lasix and consult Nephrology. The patient stated that she would still go to [place] to have valve replace but she is not a surgical candidate. I did consult Cardiology. 01/09/20 17:45 patient 86-year-old female with history of moderately severe mitral regurgitation and moderate tricuspid regurgitation patient presented with complaint of shortness of breath extremity edema and difficulty with ambulation patient is being gently diuresed his patient has chronic kidney disease, patient had been seen [facility] and is not a candidate for surgical repair of her regurgitating valves due to her age and fraililty. today again I spoke with the patient that we are unable to treat unless is able to have a surgical correction of her mitral and tricuspid vlaves, patient states see may reconsider her option for the surgery, Today patient states feeling little better however still is swelling her her legs and has not participated in physical therapy, also discussed with early breastfeeding care specialist for possible placement awaiting approval from insurance company, will have a PT OT evaluate the patient, (2) Atrial fibrillation: Qualifiers: Atrial fibrillation type: persistent (not longstanding) Qualified Code(s): I48.19 - Other persistent atrial fibrillation Code(s): I48.91 - Unspecified atrial fibrillation Status: Chronic Assessment and Plan: Continue has been on amiodarone and Cardizem. Check her thyroid levels.. Continue Coumadin and check her PT INR daily. Patient's INR is 1.5 today. I am not sure if the patient is compliant with her medications at home. Will check daily PT INR. I did increase her Coumadin to 1 mg daily. (3) Chronic anticoagulation: Code(s): Z79.01 - intermediate frame tender (current) use of anticoagulants Status: Acute Assessment and Plan: Patient's INR is 1.5 today. Will check it daily. increasing her Coumadin. There is an interaction between amiodarone and Coumadin. However the amiodarone is on hold at this time. (4) Suspected COVID-19 virus infection: Code(s): Z20.828 - Contact with and (suspected) exposure to other viral communicable diseases Status: Acute Assessment and Plan: Patient has been checked 3 times in 1 month for covid 19. She was found to be negative x2. 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 The patient is a poor candidate for surgery. There is nothing that we can help her with here. (6) Acute diastolic CHF (congestive heart failure): Code(s): I50.31 - Acute diastolic (congestive) heart failure Status: Chronic Assessment and Plan: Referred to cardiology she had medication adjustments last admission and are blood pressure is low again. I will hold her amiodarone and metoprolol for tonight. (7) Dementia: Code(s): F03.90 - Unspecified dementia without behavioral disturbance Status: Chronic Assessment and Plan: Patient is forgetful. But she is not on any medication for dementia. (8) Hypertension: Qualifiers: Hypertension type: essential hypertension Qualified Code(s): I10 - Essential (primary) hypertension Code(s): I10 - Essential (primary) hypertensi
[2020-01-09] MEDS: WARFARIN (*PBKC) 1 MG TABLET PO (17:56)
[2020-01-10] VITALS (10 sets, daily range): BP systolic 93–94; BP diastolic 54–64; PULSE 93–128; RESP 16–18; TEMP 36.5–36.9; O2SAT 91–94
[2020-01-10 06:29] LABS: Hematocrit 37.4 % (37.0-47.0); Mean Corpuscular HGB Conc 32.1 g/dl (32-36); Mean Corpuscular Hemoglobin 30.8 pg (26-34); Mean Corpuscular Volume 95.9 fl (80-100); Mean Platelet Volume 9.7 fl (7.4-10.4); Platelet Count Result 208 k/mm3 (150-375); Red Cell Distribution Width 15.2 % (11.5-14.5); White Blood Count 5.1 K/mm3 (4.5-10.0)
[2020-01-10 06:40] LABS: Anion Gap 3 mmol/L (8-16); Blood Urea Nitrogen 31 mg/dL (7-17); Calcium 8.1 mg/dL (8.4-10.2); Carbon Dioxide 36 mmol/L (22-30); Chloride 98 mmol/L (98-107); Estimated CRCL calculation 21 ml/min; Estimated Glomerular Filt Rate 36; Glucose 79 mg/dL (65-105); Potassium 3.9 mmol/L (3.4-5.0); Sodium 137 mmol/L (137-145)
[2020-01-10 06:57] LABS: INR 1.4; Prothrombin Time 16.8 Seconds (11.1-14.7)
[2020-01-10] MEDS: FUROSEMIDE INJ 40 MG/4 ML VIAL 20 MG IV PUSH (08:34)
[2020-01-10] MEDS: POTASSIUM CHLORIDE 10 MEQ TABLET.ER PO (08:35)
--- NOTE | 2020-01-10 14:24 | PM.IMPN ---
Progress Note: A&P Assessment and Plan (1) CHF (congestive heart failure): Qualifiers: Heart failure chronicity: acute on chronic Heart failure type: unspecified Qualified Code(s): I50.9 - Heart failure, unspecified Code(s): I50.9 - Heart failure, unspecified Status: Chronic Assessment and Plan: The patient is only on 20 mg of Lasix daily p.o. however the patient has been having worsening renal failure since her Lasix was increased last time. We will continue with IV Lasix and consult Nephrology. The patient stated that she would still go to [place] to have valve replace but she is not a surgical candidate. I did consult Cardiology. 01/10/20 14:24 patient 86-year-old female with history of moderately severe mitral regurgitation and moderate tricuspid regurgitation patient presented with complaint of shortness of breath extremity edema and difficulty with ambulation patient is being gently diuresed his patient has chronic kidney disease, patient had been seen [facility] and is not a candidate for surgical repair of her regurgitating valves due to her age and fraililty. today again I spoke with the patient that we are unable to treat unless is able to have a surgical correction of her mitral and tricuspid vlaves, patient states see may reconsider her option for the surgery, Today on 01/09 again patient states feeling little better however still is swelling her her legs and she did participated in physical therapy and was able sit in the chair, I again spoke with patient regarding valvular surgery and she is considering and will speak with her son and decide, also discussed with acute care registered nurse for possible placement awaiting approval from insurance company, will have a PT OT evaluate the patient, (2) Atrial fibrillation: Qualifiers: Atrial fibrillation type: persistent (not longstanding) Qualified Code(s): I48.19 - Other persistent atrial fibrillation Code(s): I48.91 - Unspecified atrial fibrillation Status: Chronic Assessment and Plan: Continue has been on amiodarone and Cardizem. Check her thyroid levels.. Continue Coumadin and check her PT INR daily. Patient's INR is 1.5 today. I am not sure if the patient is compliant with her medications at home. Will check daily PT INR. I did increase her Coumadin to 1 mg daily. (3) Chronic anticoagulation: Code(s): Z79.01 - predatory animal exterminator (current) use of anticoagulants Status: Acute Assessment and Plan: Patient's INR is 1.5 today. Will check it daily. increasing her Coumadin. There is an interaction between amiodarone and Coumadin. However the amiodarone is on hold at this time. (4) Suspected COVID-19 virus infection: Code(s): Z20.828 - Contact with and (suspected) exposure to other viral communicable diseases Status: Acute Assessment and Plan: Patient has been checked 3 times in 1 month for covid 19. She was found to be negative x2. 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 The patient is a poor candidate for surgery. There is nothing that we can help her with here. (6) Acute diastolic CHF (congestive heart failure): Code(s): I50.31 - Acute diastolic (congestive) heart failure Status: Chronic Assessment and Plan: Referred to cardiology she had medication adjustments last admission and are blood pressure is low again. I will hold her amiodarone and metoprolol for tonight. (7) Dementia: Code(s): F03.90 - Unspecified dementia without behavioral disturbance Status: Chronic Assessment and Plan: Patient is forgetful. But she is not on any medication for dementia. (8) Hypertension: Qualifiers
--- NOTE | 2020-01-10 15:54 | PM.PNCARD ---
Progress Note: A&P Assessment and Plan (1) (HFpEF) heart failure with preserved ejection fraction: Qualifiers: Heart failure chronicity: acute on chronic Qualified Code(s): I50.33 - Acute on chronic diastolic (congestive) heart failure Code(s): I50.30 - Unspecified diastolic (congestive) heart failure Status: Acute Assessment and Plan: Related to her severe mitral regurgitation. She does have significant edema but otherwise not significantly volume overloaded. Continue furosemide 20 mg IV push daily. Continue potassium supplementation. She is agreeable to a referral to the Valve Clinic at [place]. Will put in a referral through our office. Will coordinate with her son the appointment. (2) Atrial fibrillation: Qualifiers: Atrial fibrillation type: persistent (not longstanding) Qualified Code(s): I48.19 - Other persistent atrial fibrillation Code(s): I48.91 - Unspecified atrial fibrillation Status: Chronic Assessment and Plan: Now in atrial fibrillation with rapid ventricular response. For some reason amiodarone was held on admission. Will give her 400 mg of amiodarone now and then 200 mg b.i.d (her home dose at last discharge) This is for rate control. Her atria are very large doubt that she would convert. Soft blood pressure likely will not tolerate significant amount of beta-marky. She was discharged on Metoprolol 12.5 mg every 12 hours on December 15. She did not come to her follow up appointment in our office on December 19. Continue warfarin for anticoagulation. Continue 1 mg daily for now. Monitor PT / INR daily. (3) Chronic anticoagulation: Code(s): Z79.01 - manager terminal (current) use of anticoagulants Status: Acute Assessment and Plan: Warfarin management as above (4) Mitral regurgitation: Qualifiers: Cardiac valve disease etiology: etiology unspecified Qualified Code(s): I34.0 - Nonrheumatic mitral (valve) insufficiency Code(s): I34.0 - Nonrheumatic mitral (valve) insufficiency Status: Acute Assessment and Plan: Severe. Will refer to the Valve Clinic at [place] to see if she is a candidate for possible mitral clip . Additional Plan Her home medication list from her last discharge on 12/16/2019 should be Fosamax 70 mg weekly, amiodarone 200 mg every 12 hours, metoprolol tartrate 12.5 mg every 12 hours, warfarin 0.5 mg every 48 hours. Warfarin management through Dr. Nur'is office. Plan discussed with Dr Benitez 1550 01/10/2020 Subjective Date/time seen: 01/10/20 15:54 Interval history: Follow-up for: significant frailty, chronic atrial fibrillation and chronic dyspnea because of mitral valve regurgitation. Date of service: 01/10/2020 Subjective: In bed. Denied any pain. Short of breath with exertional activities. Lower extremity edema is worse. No lightheadedness or palpitations. Review of Systems Constitutional: Constitutional: Reports fatigue and Reports lethargy Eyes: Eyes: Denies blurry vision ENT: Reports hearing loss and Denies epistaxis Cardiovascular: Cardiovascular: Denies chest pain, Reports leg edema and Reports dyspnea Respiratory: Respiratory: Reports dyspnea Gastrointestinal: Gastrointestinal: Denies abdominal pain, Denies nausea and Denies vomiting Musculoskeletal: Musculoskeletal: Reports arthralgias Neurologic: Denies dizziness Psychiatric: Psychiatric: Denies anxiety Endocrine: Endocrine: Reports fatigue Hematologic/Lymphatic: Hematologic/Lymphatic: Denies easy bleeding Allergic/Immunologic: Allergic/Immunologic: Denies throat swelling Exam Const: General: comfortable and no acute distress Other: Very frail elderly lady sitting in bed. Comfortable, cooperative, in no distress HENMT: Mouth: Yes dry mu
[2020-01-10] MEDS: AMIODARONE HCL 200 MG TABLET 400 MG PO (16:14)
[2020-01-10] MEDS: WARFARIN (*PBKC) 1 MG TABLET PO (16:15)
[2020-01-11] VITALS (9 sets, daily range): BP systolic 93–114; BP diastolic 61–69; PULSE 74–111; RESP 18–20; TEMP 36.4–36.9; O2SAT 92–96
[2020-01-11 06:57] LABS: Hematocrit 38.2 % (37.0-47.0); Hemoglobin 12.2 g/dL (12.0-15.0); Mean Corpuscular HGB Conc 31.9 g/dl (32-36); Mean Corpuscular Hemoglobin 31.3 pg (26-34); Mean Corpuscular Volume 97.9 fl (80-100); Mean Platelet Volume 9.6 fl (7.4-10.4); Platelet Count Result 207 k/mm3 (150-375); Red Cell Distribution Width 15.3 % (11.5-14.5)
[2020-01-11 07:04] LABS: Anion Gap 1 mmol/L (8-16); Blood Urea Nitrogen 30 mg/dL (7-17); Calcium 8.3 mg/dL (8.4-10.2); Carbon Dioxide 37 mmol/L (22-30); Chloride 97 mmol/L (98-107); Estimated CRCL calculation 22 ml/min; Estimated Glomerular Filt Rate 39; Glucose 85 mg/dL (65-105); INR 1.4; Potassium 4.2 mmol/L (3.4-5.0); Prothrombin Time 16.6 Seconds (11.1-14.7); Sodium 135 mmol/L (137-145)
[2020-01-11] MEDS: POTASSIUM CHLORIDE 10 MEQ TABLET.ER PO (08:19)
[2020-01-11] MEDS: AMIODARONE HCL 200 MG TABLET PO ×2 (08:20→20:08)
[2020-01-11] MEDS: FUROSEMIDE INJ 40 MG/4 ML VIAL 20 MG IV PUSH (08:20)
--- NOTE | 2020-01-11 09:52 | PCPTNOTE ---
Attempted therapy session, Pt was working with OT. Will attempt again.
--- NOTE | 2020-01-11 11:23 | PM.PNCARD ---
Progress Note: A&P Assessment and Plan (1) (HFpEF) heart failure with preserved ejection fraction: Qualifiers: Heart failure chronicity: acute on chronic Qualified Code(s): I50.33 - Acute on chronic diastolic (congestive) heart failure Code(s): I50.30 - Unspecified diastolic (congestive) heart failure Status: Acute Assessment and Plan: Related to her severe mitral regurgitation. She does have significant edema but otherwise not significantly volume overloaded. Transition to furosemide 20 mg daily p.o.. Continue potassium supplementation. Monitor renal function and electrolytes. Referral to [facility]ve [facility] at [place]. Records along with CD of her echocardiogram will be sent. The clinic will call her son with an appointment. (2) Atrial fibrillation: Qualifiers: Atrial fibrillation type: persistent (not longstanding) Qualified Code(s): I48.19 - Other persistent atrial fibrillation Code(s): I48.91 - Unspecified atrial fibrillation Status: Chronic Assessment and Plan: Continue amiodarone 200 mg q.12 hours for rate control. Her atria are very large doubt that she would convert. Soft blood pressure likely will not tolerate significant amount of beta-marky. Last discharged on Metoprolol 12.5 mg every 12 hours. Will not restart beta-marky if can achieve rate control with amiodarone due to soft BP. Monitor INR closely. (3) Chronic anticoagulation: Code(s): Z79.01 - halfway (current) use of anticoagulants Status: Acute Assessment and Plan: Warfarin management as above (4) Mitral regurgitation: Qualifiers: Cardiac valve disease etiology: etiology unspecified Qualified Code(s): I34.0 - Nonrheumatic mitral (valve) insufficiency Code(s): I34.0 - Nonrheumatic mitral (valve) insufficiency Status: Acute Assessment and Plan: Severe. Will refer to the [facility]ve Clinic at [facility] to see if she is a candidate for possible mitral clip . Additional Plan Awaiting placement. Plan discussed with Dr Benitez 1130 01/11/2020 Subjective Date/time seen: 01/11/20 11:23 Interval history: Follow-up for: significant frailty, chronic atrial fibrillation and chronic dyspnea because of mitral valve regurgitation and COPD. Date of service: 01/11/2020 Subjective: In bed. Denied any pain. Short of breath with exertional activities but improved. Lower extremity edema is not changed. No lightheadedness or palpitations. Review of Systems Constitutional: Constitutional: Reports fatigue and Reports lethargy Eyes: Eyes: Denies blurry vision ENT: Denies dizziness, Reports hearing loss, Denies epistaxis and Denies throat swelling Cardiovascular: Cardiovascular: Denies chest pain, Reports leg edema and Reports dyspnea Respiratory: Respiratory: Reports dyspnea Gastrointestinal: Gastrointestinal: Denies abdominal pain, Denies nausea and Denies vomiting Musculoskeletal: Musculoskeletal: Reports arthralgias Neurologic: Denies dizziness Psychiatric: Psychiatric: Denies anxiety Endocrine: Endocrine: Reports fatigue Hematologic/Lymphatic: Hematologic/Lymphatic: Denies easy bleeding Allergic/Immunologic: Allergic/Immunologic: Denies throat swelling Exam Const: General: comfortable and no acute distress Other: Very frail elderly lady sitting in bed. Comfortable, cooperative, in no distress HENMT: Mouth: Yes dry mucous membranes Eyes: Sclera: sclerae normal Pupils: Equal, round and reactive pupils present Neck: Neck: supple Other: Carotid pulses are intact bilaterally Resp: Effort & Inspection: normal respiratory effort and able to speak in complete sentences Auscultation: diminished lung sounds ( 1/2 up with posterior on the left 1/3 on the right) Cardio: Rate: tachycardic (improved he
--- NOTE | 2020-01-11 15:05 | PM.IMPN ---
Progress Note: A&P Assessment and Plan (1) CHF (congestive heart failure): Qualifiers: Heart failure chronicity: acute on chronic Heart failure type: unspecified Qualified Code(s): I50.9 - Heart failure, unspecified Code(s): I50.9 - Heart failure, unspecified Status: Chronic Assessment and Plan: The patient is only on 20 mg of Lasix daily p.o. however the patient has been having worsening renal failure since her Lasix was increased last time. We will continue with IV Lasix and consult Nephrology. The patient stated that she would still go to [place] to have valve replace but she is not a surgical candidate. I did consult Cardiology. 01/11/20 15:05 patient 86-year-old female with history of moderately severe mitral regurgitation and moderate tricuspid regurgitation patient presented with complaint of shortness of breath extremity edema and difficulty with ambulation patient is being gently diuresed patient has chronic kidney disease, patient had been seen [facility] and is not a candidate for surgical repair of her regurgitating valves due to her age and fraililty. today again I spoke with the patient that we are unable to treat unless is able to have a surgical correction of her mitral and tricuspid vlaves, patient states she may reconsider her option for the surgery, on 01/09 again patient stated feeling little better however still is swelling her her legs and she did participated in physical therapy and was able sit in the chair, I again spoke with patient regarding valvular surgery and she is considering and will speak with her son and decide, also discussed with health care consultant for possible placement awaiting approval from insurance company, will have a PT OT evaluate the patient, today 01/10 spoke with cardioloy service, will stop IV lasix and start on low dose PO lasix, did referral to Val[facility]ular Clinic at [facility], once clinically stable, and ok with insurance company will discharge patient. (2) Atrial fibrillation: Qualifiers: Atrial fibrillation type: persistent (not longstanding) Qualified Code(s): I48.19 - Other persistent atrial fibrillation Code(s): I48.91 - Unspecified atrial fibrillation Status: Chronic Assessment and Plan: Continue has been on amiodarone and Cardizem. Check her thyroid levels.. Continue Coumadin and check her PT INR daily. Patient's INR is 1.5 today. I am not sure if the patient is compliant with her medications at home. Will check daily PT INR. I did increase her Coumadin to 1 mg daily. 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 Will check it daily. increasing her Coumadin. There is an interaction between amiodarone and Coumadin. However the amiodarone is on hold at this time. (4) Suspected COVID-19 virus infection: Code(s): Z20.828 - Contact with and (suspected) exposure to other viral communicable diseases Status: Acute Assessment and Plan: Patient has been checked 3 times in 1 month for covid 19. She was found to be negative x2. 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 The patient is a poor candidate for surgery. There is nothing that we can help her with here. (6) Acute diastolic CHF (congestive heart failure): Code(s): I50.31 - Acute diastolic (congestive) heart failure Status: Chronic Assessment and Plan: Referred to cardiology she had medication adjustments last admission and are blood pressure is low again. I will hold her amiodarone and metoprolol for tonight. (7) Dementia: Code(s): F03.90
[2020-01-11] MEDS: WARFARIN (*PBKC) 1 MG TABLET PO (18:12)
[2020-01-12] VITALS: PULSE 117
[2020-01-12 04:00] VITALS: PULSE 96
[2020-01-12 06:00] VITALS: BP 104/66; PULSE 90; RESP 18; TEMP 36.6; O2SAT 92
[2020-01-12 06:33] LABS: Hematocrit 35.6 % (37.0-47.0); Hemoglobin 11.5 g/dL (12.0-15.0); Mean Corpuscular HGB Conc 32.3 g/dl (32-36); Mean Corpuscular Hemoglobin 30.7 pg (26-34); Mean Corpuscular Volume 95.2 fl (80-100); Mean Platelet Volume 9.5 fl (7.4-10.4); Platelet Count Result 202 k/mm3 (150-375); Red Blood Count 3.74 M/mm3 (4.2-5.4); White Blood Count 4.9 K/mm3 (4.5-10.0)
[2020-01-12 06:40] LABS: INR 1.4; Prothrombin Time 16.4 Seconds (11.1-14.7)
[2020-01-12 06:53] LABS: Anion Gap 2 mmol/L (8-16); Blood Urea Nitrogen 26 mg/dL (7-17); Calcium 8.3 mg/dL (8.4-10.2); Carbon Dioxide 36 mmol/L (22-30); Chloride 97 mmol/L (98-107); Estimated CRCL calculation 24 ml/min; Estimated Glomerular Filt Rate 43; Glucose 101 mg/dL (65-105); Potassium 3.9 mmol/L (3.4-5.0); Sodium 135 mmol/L (137-145)
[2020-01-12 08:42] VITALS: PULSE 109
[2020-01-12] MEDS: POTASSIUM CHLORIDE 10 MEQ TABLET.ER PO (09:30)
[2020-01-12] MEDS: AMIODARONE HCL 200 MG TABLET PO (09:30)
[2020-01-12] MEDS: FUROSEMIDE 20 MG TABLET PO (09:30)
[2020-01-12 12:00] VITALS: PULSE 115
--- NOTE | 2020-01-12 13:42 | PM.IMPN ---
Progress Note: A&P Assessment and Plan (1) CHF (congestive heart failure): Qualifiers: Heart failure chronicity: acute on chronic Heart failure type: unspecified Qualified Code(s): I50.9 - Heart failure, unspecified Code(s): I50.9 - Heart failure, unspecified Status: Chronic Assessment and Plan: The patient is only on 20 mg of Lasix daily p.o. however the patient has been having worsening renal failure since her Lasix was increased last time. We will continue with IV Lasix and consult Nephrology. The patient stated that she would still go to [place] to have valve replace but she is not a surgical candidate. I did consult Cardiology. 01/12/20 13:42 patient 86-year-old female with history of moderately severe mitral regurgitation and moderate tricuspid regurgitation patient presented with complaint of shortness of breath extremity edema and difficulty with ambulation patient is being gently diuresed patient has chronic kidney disease, patient had been seen [facility] and is not a candidate for surgical repair of her regurgitating valves due to her age and fraililty. 01/08 again I spoke with the patient that we are unable to treat unless is able to have a surgical correction of her mitral and tricuspid vlaves, patient states she may reconsider her option for the surgery, on 01/09 again patient stated feeling little better however still is swelling her her legs and she did participated in physical therapy and was able sit in the chair, I again spoke with patient regarding valvular surgery and she is considering and will speak with her son and decide, also discussed with senior resident care director for possible placement awaiting approval from insurance company, will have a PT OT evaluate the patient, 01/10 spoke with cardioloy service, stopped IV lasix and started on low dose PO lasix, and was referred to Val[facility]ular Clinic at [facility], Today on 01/11 patient states feeling much better swelling in her lower extremities have improved as well as her BUN and creatinine suggesting patient making more urine will continue present management, will continue PT OT evaluate and treatment still waiting for insurance authorization for patient be [facility]. (2) Atrial fibrillation: Qualifiers: Atrial fibrillation type: persistent (not longstanding) Qualified Code(s): I48.19 - Other persistent atrial fibrillation Code(s): I48.91 - Unspecified atrial fibrillation Status: Chronic Assessment and Plan: Continue has been on amiodarone and Cardizem. Check her thyroid levels.. Continue Coumadin and check her PT INR daily. Patient's INR is 1.5 today. I am not sure if the patient is compliant with her medications at home. Will check daily PT INR. I did increase her Coumadin to 1 mg daily. 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 Will check it daily. increasing her Coumadin. There is an interaction between amiodarone and Coumadin. However the amiodarone is on hold at this time. (4) Suspected COVID-19 virus infection: Code(s): Z20.828 - Contact with and (suspected) exposure to other viral communicable diseases Status: Acute Assessment and Plan: Patient has been checked 3 times in 1 month for covid 19. She was found to be negative x2. 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 The patient is a poor candidate for surgery. There is nothing that we can help her with here. (6) Acute diastolic CHF (congestive heart failure): Code(s): I50.31 - Acute diastolic (congestive) heart failure
--- NOTE | 2020-01-12 13:50 | PC.NURSE ---
On 01/12/20, the student, [Josh Alves ], provided care and completed [facility] documentation on this patient. I have reviewed the student's documentation and agree with the findings.
[2020-01-12 14:18] VITALS: BP 98/69; PULSE 92; RESP 22; TEMP 37.4; O2SAT 93
--- NOTE | 2020-01-12 15:54 | PM.DS ---
DS: Admitting Diagnosis Admitting Diagnosis Admitting Diagnosis: CHF DS: Discharge Diagnosis Discharge Diagnosis (1) CHF (congestive heart failure): Qualifiers: Heart failure chronicity: acute on chronic Heart failure type: unspecified Qualified Code(s): I50.9 - Heart failure, unspecified Code(s): I50.9 - Heart failure, unspecified Status: Chronic Assessment and Plan: The patient is only on 20 mg of Lasix daily p.o. however the patient has been having worsening renal failure since her Lasix was increased last time. We will continue with IV Lasix and consult Nephrology. The patient stated that she would still go to [place] to have valve replace but she is not a surgical candidate. I did consult Cardiology. 01/12/20 13:42 patient 86-year-old female with history of moderately severe mitral regurgitation and moderate tricuspid regurgitation patient presented with complaint of shortness of breath extremity edema and difficulty with ambulation patient is being gently diuresed patient has chronic kidney disease, patient had been seen [facility] and is not a candidate for surgical repair of her regurgitating valves due to her age and fraililty. 01/08 again I spoke with the patient that we are unable to treat unless is able to have a surgical correction of her mitral and tricuspid vlaves, patient states she may reconsider her option for the surgery, on 01/09 again patient stated feeling little better however still is swelling her her legs and she did participated in physical therapy and was able sit in the chair, I again spoke with patient regarding valvular surgery and she is considering and will speak with her son and decide, also discussed with daytime caregiver for possible placement awaiting approval from insurance company, will have a PT OT evaluate the patient, 01/10 spoke with cardioloy service, stopped IV lasix and started on low dose PO lasix, and was referred to Valvular Clinic at [facility], Today on 01/11 patient states feeling much better swelling in her lower extremities have improved as well as her BUN and creatinine suggesting patient making more urine will continue present management, will continue PT OT evaluate and treatment still waiting for insurance authorization for patient be admitted to [facility]. (2) Atrial fibrillation: Qualifiers: Atrial fibrillation type: persistent (not longstanding) Qualified Code(s): I48.19 - Other persistent atrial fibrillation Code(s): I48.91 - Unspecified atrial fibrillation Status: Chronic Assessment and Plan: Continue has been on amiodarone and Cardizem. Check her thyroid levels.. Continue Coumadin and check her PT INR daily. Patient's INR is 1.5 today. I am not sure if the patient is compliant with her medications at home. Will check daily PT INR. I did increase her Coumadin to 1 mg daily. 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 Will check it daily. increasing her Coumadin. There is an interaction between amiodarone and Coumadin. However the amiodarone is on hold at this time. (4) Suspected COVID-19 virus infection: Code(s): Z20.828 - Contact with and (suspected) exposure to other viral communicable diseases Status: Acute Assessment and Plan: Patient has been checked 3 times in 1 month for covid 19. She was found to be negative x2. 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 The patient is a poor candidate for surgery. There is nothing that we can help her with here. (6) Acute diastolic CHF (congestive heart fa
[2020-01-12] MEDS: WARFARIN (*PBKC) 1 MG TABLET PO (17:20)
== END 2020-01-12 19:30 | DRG 291 ==
LOC: ANHED 19:33 → ANH2MED 19:58 → ANH3MEDSUR 21:30
PROVIDERS: Nurse Practitioner; Admitting Provider Internal Medicine; Emergency Provider Emergency Medicine; PCP Internal Medicine; Visit Provider Family Medicine
DX: I13.0 Hypertensive heart and chronic kidney disease with heart failure and stage 1 through stage 4 chronic kidney disease, or unspecified chronic kidney disease (principal); I50.33 Acute on chronic diastolic (congestive) heart failure; I48.19 Other persistent atrial fibrillation; N18.9 Chronic kidney disease, unspecified; Z20.828 Contact with and (suspected) exposure to other viral communicable diseases; I34.0 Nonrheumatic mitral (valve) insufficiency; I36.1 Nonrheumatic tricuspid (valve) insufficiency; F03.90 Unspecified dementia, unspecified severity, without behavioral disturbance, psychotic disturbance, mood disturbance, and anxiety; J44.9 Chronic obstructive pulmonary disease, unspecified; M81.0 Age-related osteoporosis without current pathological fracture; M19.90 Unspecified osteoarthritis, unspecified site; Z96.659 Presence of unspecified artificial knee joint; Z79.01 Long term (current) use of anticoagulants; Z79.899 Other long term (current) drug therapy
CPT/HCPCS: 36415; 71046; 76775; 80048; 80076; 82728; 83735; 83880; 84100; 84439; 84443; 84480; 84484; 85025; 85027; 85610; 85730; 87635; 93005; 96374; 97110; 97116; 97161; 97166; 97530; 97535; 99285; A9270; C9803; G0378; J1940; U0003